=== PATIENT | female | born 1945 | race Caucasian/White ===

== ENCOUNTER 2016-05-13 05:38 | Emergency (ER) | payer MEDICARE ==
[~2016-05-13] VITALS: Ht 167.6 cm; Wt 78.0 kg
[2016-05-13 05:39] VITALS: BP 177/81; PULSE 102; RESP 16; TEMP 98.5; O2SAT 96
[2016-05-13 05:51] VITALS: BP 140/82; PULSE 96; RESP 20; TEMP 98; O2SAT 96
[2016-05-13] MEDS ORDERED: LANS30CA PO (05:54)
[2016-05-13] MEDS ORDERED: SIMV20TA PO (05:54)
[2016-05-13] MEDS ORDERED: ASPI1TAB69 PO (05:54)
[2016-05-13] MEDS ORDERED: LISI-515 PO (05:54)
[2016-05-13] MEDS ORDERED: METO25TA3 PO (05:54)
[2016-05-13] MEDS ORDERED: SODIUM CHLOR 0.9% 1000 ML INJ 1,000 ML IV SCH (06:38)
--- NOTE | 2016-05-13 06:42 | PD ---
HPI Chief Complaint: Abdominal Pain Time Seen by Provider: 06:38 Travel History International Travel<30 days: No Contact w/Intl Traveler<30days: No Traveled to known affect area: No History of Present Illness HPI 71 year-old female presents to the emergency department by private transportation for complaint of lower abdominal pain for a day and a half in duration. Patient's had associated chills nausea and decreased urine output and poor bowel movements. Patient has had mild anorexia. Patient has had partial hysterectomy in the past but no other surgeries has history of hypertension dyslipidemia and reflux esophagitis. Patient denies respiratory illness chest pain or shortness of breath. Patient states she feels the urge to have a bowel movement and urinate. This feels unsuccessful with either. No prior history of colitis diverticulitis or kidney stones. [facility] Past Medical History Narrative Medical Hypertension dyslipidemia reflux esophagitis partial hysterectomy nursing notes reviewed Diminished Hearing: No Hypertension: Yes Immunizations Current: Yes Tetanus Vaccination: Unknown Influenza Vaccination: No ?: Not Past Surgical History Gynecologic Surgery: Yes Hysterectomy: Yes Social History Alcohol Use: No Tobacco Use: No Substance Use: No Allergies-Medications (Allergen,Severity, Reaction): Coded Allergies: No Known Allergies (Unverified , 05/13/16) Reported Meds & Prescriptions Reported Meds & Active Scripts Active Reported Lansoprazole 30 Mg Capdr 30 Mg PO DAILY Metoprolol Tartrate 25 Mg Tab 25 Mg PO BID Lisinopril 20 Mg Tab 20 Mg PO DAILY Simvastatin 20 Mg Tab 20 Mg PO DAILY Aspirin 81 Mg Tabdr 81 Mg PO DAILY Review of Systems Except as stated in HPI: all other systems reviewed are Neg General / Constitutional: Positive: Chills, No: Fever HENT: No: Congestion Cardiovascular: No: Chest Pain or Discomfort Respiratory: No: Shortness of Breath Gastrointestinal: Positive: Nausea, Abdominal Pain, Constipation, No: Vomiting , Diarrhea Genitourinary: Positive: Urgency, Dysuria, No: Flank Pain Musculoskeletal: No: Myalgias, Arthralgias Skin: No Rash Neurologic: No: Weakness Psychiatric: No: Anxiety Hematologic/Lymphatic: No: Lymph Node Enlargement Physical Exam Narrative GENERAL: Well-developed well-nourished female in no acute distress no respiratory distress SKIN: Warm and dry. HEAD: Normocephalic. EYES: No scleral icterus. No injection or drainage. NECK: Supple, trachea midline. No JVD or lymphadenopathy. CARDIOVASCULAR: Regular rate and rhythm without murmurs, gallops, or rubs. RESPIRATORY: Breath sounds equal bilaterally. No accessory muscle use. GASTROINTESTINAL: Abdomen soft, mildly diffusely tender bilateral lower quadrant without guarding or rebound or palpable pulsatile mass, nondistended. MUSCULOSKELETAL: No cyanosis, or edema. BACK: Nontender without obvious deformity. No CVA tenderness. Data Data Last Documented VS Vital Signs Date Time Temp Pulse Resp B/P Pulse Ox O2 Delivery O2 Flow Rate FiO2 05/13/16 05:51 98.0 96 20 140/82 96 05/13/16 05:39 Room Air MDM Medical Decision Making Medical Screen Exam Complete: Yes Emergency Medical Condition: Yes Medical Record Reviewed: Yes Differential Diagnosis Abdominal pain diverticulitis colitis appendicitis pyelonephritis ovarian mass malignancy Narrative Course IV access obtained specimens collected and sent for resulting patient administered morphine sulfate 2 mg IV Zofran 4 mg IV normal saline 125 cc/h; CT abdomen and pelvis ordered Patient's care signed over to oncoming physician at 7 AM Deena Morrow MD May 13, 2016 06:42
[2016-05-13] MEDS ORDERED: ONDANSETRON HCL 4 MG/2 ML VIAL IVP ONE (06:45)
[2016-05-13] MEDS ORDERED: MORPHINE SULFATE 4 MG/ML INJ IV PUSH ONE (06:45)
[2016-05-13] MEDS ORDERED: SODIUM CHLORIDE 0.9% FLUSH 5 ML FLUSH IVF PRN (06:45)
[2016-05-13 06:48] VITALS: RESP 20
[2016-05-13 07:08] LABS: AUTOMATED NEUTROPHIL # 9.8 TH/MM3 (1.8-7.7); BASOPHIL % 0.3 % (0.0-2.0); EOSINOPHIL # 0.1 TH/MM3 (0-0.4); EOSINOPHIL % 0.7 % (0.0-4.0); HEMATOCRIT 39.4 % (35.0-46.0); HEMO FLAGS DIFF FINAL; LYMPH % 9.1 % (9.0-44.0); LYMPHOCYTE # 1.1 TH/MM3 (1.0-4.8); MEAN CORPUSCULAR HEMOGLOBIN 29.4 PG (27.0-34.0); MEAN CORPUSCULAR HGB CONC 34.3 % (32.0-36.0); MONO % 5.5 % (0.0-8.0); NEUT % 84.4 % (16.0-70.0); PLATELET COUNT 209 TH/MM3 (150-450); RED BLOOD COUNT 4.59 MIL/MM3 (4.00-5.30); RED CELL DISTRIBUTION WIDTH 12.7 % (11.6-17.2); WHITE BLOOD COUNT 11.6 TH/MM3 (4.0-11.0)
[2016-05-13 07:49] LABS: ALKALINE PHOSPHATASE 89 U/L (45-117); TOTAL BILIRUBIN ADULT 0.7 MG/DL (0.2-1.0)
[2016-05-13 07:51] LABS: ALT (GPT) 19 U/L (10-53); ANION GAP 8 MEQ/L (5-15); AST (GOT) 13 U/L (15-37); BICARBONATE 25.2 MEQ/L (21.0-32.0); BLOOD UREA NITROGEN 10 MG/DL (7-18); CHLORIDE 106 MEQ/L (98-107); GLOMERULAR FILTRATION RATE 87 ML/MIN (>89); SODIUM (NA) 139 MEQ/L (136-145)
[2016-05-13] MEDS ORDERED: IOHEXOL 350 MG/ML 10 ML VIAL (for RAD DIAG) IV ONE (08:21)
[2016-05-13 08:35] LABS: BACTERIA, URINE RARE /hpf; BLOOD, URINE NEG (NEG); COMMENT (UR) CULT NOT INDICATED; CULTURE IF INDICATED CULT NOT INDICATED; GLUCOSE,URINE NEG (NEG); KETONE, URINE NEG (NEG); MUCUS URINE FEW /lpf (OCC); NITRITE,URINE NEG (NEG); PH, URINE 5.5 (5.0-8.5); SQUAMOUS EPITHELIAL CELL URINE <1 /hpf (0-5); URINE COLOR LIGHT-YELLOW (YELLW/STRAW)
--- NOTE | 2016-05-13 08:59 | RADRPT ---
EXAM DATE/TIME: 05/13/2016 08:12 [facility] COMPARISON: No previous studies available for comparison. INDICATIONS : Abdominal pain. IV CONTRAST: 81 cc Omnipaque 350 (iohexol) IV ORAL CONTRAST: No oral contrast ingested. RADIATION DOSE: 9.96 CTDIvol (mGy) MEDICAL HISTORY : Hypertension. SURGICAL HISTORY : Hysterectomy. ENCOUNTER: Initial ACUITY: 4 - 6 days PAIN SCALE: 5/10 LOCATION: Diffuse abdomen TECHNIQUE: Volumetric scanning of the abdomen and pelvis was performed. Using automated exposure control and ad justment of the mA and/or kV according to patient size, radiation dose was kept as low as reasonably achievable to obtain optimal diagnostic quality images. FINDINGS: CT abdomen and pelvis with contrast demonstrates some bowel wall thickening near the rectosigmoid junction. There is some adjacent inflammation and thickening of the peritoneum . Differential includes either diverticulitis or colitis. Malignancy is less likely. There is exte nsive adjacent diverticulosis. The area of wall thickening along the rectosigmoid junction extends f or at least 4.7 cm in length. The liver, spleen, adrenal glands, pancreas and kidneys are unremarkable except for a few benign debra l cysts. There is atherosclerotic disease without aneurysm. The appendix is normal. Both ureters are nondilated. CONCLUSION: Focal area of wall thickening at the rectosigmoid junction extending for 4.7 cm in length. There is adjacent inflammation and thickening of the peritoneal lining. Differential includes colitis versus diverticulitis. Malignancy less likely but the wall is diffusely thickened. At some point, the jacey ent should undergo a colon cancer screening exam. Solid organs are unremarkable. Robert Lacey MD on May 13, 2016 at 8:33 Board Certified Radiologist. This report was verified electronically.
[2016-05-13] MEDS ORDERED: CIPR-9 PO (09:13)
[2016-05-13] MEDS ORDERED: METR-1 PO (09:13)
[2016-05-13] MEDS ORDERED: HYDR-3533 PO (09:13)
--- NOTE | 2016-05-13 09:13 | PD ---
Data Data Last Documented VS Vital Signs Date Time Temp Pulse Resp B/P Pulse Ox O2 Delivery O2 Flow Rate FiO2 05/13/16 06:48 20 05/13/16 05:51 98.0 96 140/82 96 05/13/16 05:39 Room Air Orders Complete Blood Count With Diff (05/13/16 06:38) Comprehensive Metabolic Panel (05/13/16 06:38) Lipase (05/13/16 06:38) Urinalysis - C+S If Indicated (05/13/16 06:38) Ct Abd/Pel W Iv Contrast(Rout) (05/13/16 06:38) Iv Access Insert/Monitor (05/13/16 06:38) Ecg Monitoring (05/13/16 06:38) Oximetry (05/13/16 06:38) Morphine Inj (Morphine Inj) (05/13/16 06:45) Ondansetron Inj (Zofran Inj) (05/13/16 06:45) Sodium Chlor 0.9% 1000 Ml Inj (Ns 1000 M (05/13/16 06:38) Sodium Chloride 0.9% Flush (Ns Flush) (05/13/16 06:45) Iohexol 350 Inj (Omnipaque 350 Inj) (05/13/16 08:21) Labs Laboratory Tests Test 05/13/16 05/13/16 06:45 07:45 White Blood Count 11.6 TH/MM3 Red Blood Count 4.59 MIL/MM3 Hemoglobin 13.5 GM/DL Hematocrit 39.4 % Mean Corpuscular Volume 86.0 FL Mean Corpuscular Hemoglobin 29.4 PG Mean Corpuscular Hemoglobin 34.3 % Concent Red Cell Distribution Width 12.7 % Platelet Count 209 TH/MM3 Mean Platelet Volume 8.7 FL Neutrophils (%) (Auto) 84.4 % Lymphocytes (%) (Auto) 9.1 % Monocytes (%) (Auto) 5.5 % Eosinophils (%) (Auto) 0.7 % Basophils (%) (Auto) 0.3 % Neutrophils # (Auto) 9.8 TH/MM3 Lymphocytes # (Auto) 1.1 TH/MM3 Monocytes # (Auto) 0.6 TH/MM3 Eosinophils # (Auto) 0.1 TH/MM3 Basophils # (Auto) 0.0 TH/MM3 CBC Comment DIFF FINAL Differential Comment Sodium Level 139 MEQ/L Potassium Level 4.0 MEQ/L Chloride Level 106 MEQ/L Carbon Dioxide Level 25.2 MEQ/L Anion Gap 8 MEQ/L Blood Urea Nitrogen 10 MG/DL Creatinine 0.67 MG/DL Estimat Glomerular Filtration 87 ML/MIN Rate Random Glucose 123 MG/DL Calcium Level 9.8 MG/DL Total Bilirubin 0.7 MG/DL Aspartate Amino Transf 13 U/L (AST/SGOT) Alanine Aminotransferase 19 U/L (ALT/SGPT) Alkaline Phosphatase 89 U/L Total Protein 6.9 GM/DL Albumin 3.7 GM/DL Lipase 117 U/L Urine Color LIGHT-YELLOW Urine Turbidity CLEAR Urine pH 5.5 Urine Specific [place] 1.005 Urine Protein NEG mg/dL Urine Glucose (UA) NEG mg/dL Urine Ketones NEG mg/dL Urine Occult Blood NEG Urine Nitrite NEG Urine Bilirubin NEG Urine Urobilinogen LESS THAN 2.0 MG/DL Urine Leukocyte Esterase MOD Urine RBC 1 /hpf Urine WBC 1 /hpf Urine Squamous Epithelial <1 /hpf Cells Urine Bacteria RARE /hpf Urine Mucus FEW /lpf Microscopic Urinalysis Comment CULT NOT INDICATED [facility] Supervised Visit with [facility]IL[facility]: No Narrative Course The patient was initially evaluated by the previous provider and signed out to me at the beginning of my shift pending labs, CT abdomen pelvis, and disposition. See her note for further details. Receive this is a 71-year-old female who has been having lower abdominal pain for the last 1-2 days. History of hysterectomy. She was given morphine by the previous provider with significant improvement in pain. He states that she has not had a bowel movement in about 45 days. Initial vital signs show heart rate of 102, blood pressure 177/81, pulse ox 96% on room air, oral temp of 98.5F. Heart rate improved after a liter of IV fluids to the 90s. On my assessment the patient is resting comfortably. Her abdominal exam shows mild superpubic tenderness. No peritoneal signs. CBC is remarkable for WBC 11.6 with 84% neutrophils. CMP is unremarkable. UA shows rare bacteria, not suggestive of UTI. CT abdomen pelvis: CONCLUSION: Focal area of wall thickening at the rectosigmoid junction extending for 4.7 cm in length. There is adjacent inflammation and thickening of the peritoneal lining. Differential includes colitis versus diverticulitis. Malignancy less likely but the wall is diffusely thickened. At some point, the patient should undergo a colon cancer screening exam. Solid organs are unremarkable. The patient was made aware of all findings and was provided a copy of her CT abdomen pelvis report. She reports that she had a colonoscopy about 5 years ago and believes it was completely normal. She is stable for discharge home with oral antibiotics and follow-up with her memory care physician as an outpatient who can arrange for a clinical reviewer follow-up. She was informed on when to return to the emergency department pitcher verbalizes understanding and agreement with plan. Diagnosis Primary Impression: Colitis Referrals: Primary Care Physician 3 days Additional Instruction: Take antibody as prescribed. Follow-up with your primary care physician this week. Return to the emergency room for worsening symptoms or any other concerns as discussed. Scripts Hydrocodone-Acetaminophen (Lortab)5-325 Mg Tab1 Tab PO Q6H PRN (PAIN) #15 TAB Ref 0 Prov:Jose Rafael Forman MD 05/13/16 Metronidazole (Flagyl)500 Mg [id number] Mg PO BID 10 Days Ref 0 Prov:Jose Rafael Forman MD 05/13/16 Ciprofloxacin (Cipro)500 Mg [id number] Mg PO BID 10 Days Ref 0 Prov:Jose Rafael Forman MD 05/13/16 Disposition: 01 DISCHARGE HOME Condition: Stable Jose Rafael Forman MD May 13, 2016 09:13
[2016-05-13] MEDS ORDERED: metroNIDAZOLE 500 MG TAB PO ONE (09:15)
[2016-05-13] MEDS ORDERED: CIPROFLOXACIN 500 MG TAB PO ONE (09:15)
[2016-05-13 10:00] VITALS: BP 136/77; TEMP 98.3
== END 2016-05-13 09:45 | disposition home or self-care (01) ==
LOC: NEPC 05:38
DX: K52.9 Noninfective gastroenteritis and colitis, unspecified (principal); I10 Essential (primary) hypertension
CPT/HCPCS: 74177; 80053; 81001; 83690; 85025; 96374; 96375; 99284; J2270; J2405; J7030; Q9967

== ENCOUNTER 2017-01-22 02:39 | Inpatient (IN) | payer MEDICARE ==
[~2017-01-22] VITALS: Ht 154.9 cm; Wt 65.6 kg
[2017-01-22] VITALS (7 sets, daily range): BP systolic 123–180; BP diastolic 70–98; PULSE 57–81; RESP 16–20; TEMP 95.6–98.6; O2SAT 93–97
[~2017-01-22 02:39] MED LIST: ASPI1TAB69 PO; CIPR-9 PO; HYDR-3533 PO; LANS30CA PO; LISI-515 PO; METO25TA3 PO; METR-1 PO; SIMV20TA PO
[2017-01-22] MEDS ORDERED: PANTOPRAZOLE INJ 80 MG in SODIUM CHLORIDE 0.9% INJ 35 ML IV ONE (03:21)
[2017-01-22] MEDS ORDERED: ONDANSETRON HCL 4 MG/2 ML VIAL IVP ONE (03:30)
[2017-01-22] MEDS ORDERED: MORPHINE SULFATE 4 MG/ML INJ IV PUSH ONE (03:30)
--- NOTE | 2017-01-22 03:48 | PD ---
HPI Chief Complaint: Abdominal Pain Time Seen by Provider: 03:10 Travel History International Travel<30 days: No Contact w/Intl Traveler<30days: No Traveled to known affect area: No History of Present Illness HPI 71yo F with PMH of diverticulitis, HTN, HLD presents to the ED with c/o abdominal pain, nausea and vomiting today. States she has abdominal pain that is sharp, constant, and across her abdomen. She had eaten buffet yesterday and took some tums. Started vomiting around 7pm last night. Started off clear and now it is dark. Last colonoscopy within 1 year and thinks it is normal. She does drink 1-2 drinks a day. Denies any fever, chest pain, sob, focal weakness or numbness. PFSH Past Medical History High Cholesterol: Yes Diminished Hearing: No GERD: Yes Hypertension: Yes Immunizations Current: Yes Past Surgical History Gynecologic Surgery: Yes Hysterectomy: Yes Social History Alcohol Use: No Tobacco Use: Yes (1/2PPD) Substance Use: No Allergies-Medications (Allergen,Severity, Reaction): Coded Allergies: No Known Allergies (Unverified , 01/22/17) Reported Meds & Prescriptions Reported Meds & Active Scripts Active Reported Lansoprazole 30 Mg Capdr 30 Mg PO DAILY Metoprolol Tartrate 25 Mg Tab 25 Mg PO BID Lisinopril 20 Mg Tab 20 Mg PO DAILY Simvastatin 20 Mg Tab 20 Mg PO DAILY Review of Systems Except as stated in HPI: all other systems reviewed are Neg Physical Exam Narrative GENERAL: 71yo F in moderate distress. SKIN: Focused skin assessment warm/dry. HEAD: Atraumatic. Normocephalic. EYES: Pupils equal and round. No scleral icterus. No injection or drainage. ENT: No nasal bleeding or discharge. Mucous membranes pink and moist. NECK: Trachea midline. No JVD. CARDIOVASCULAR: Regular rate and rhythm. No murmur appreciated. RESPIRATORY: No accessory muscle use. Clear to auscultation. Breath sounds equal bilaterally. GASTROINTESTINAL: Abdomen soft, +TTP epigastric, periumbilical ttp. No rebound tenderness or guarding. MUSCULOSKELETAL: No obvious deformities. No clubbing. No cyanosis. No edema. NEUROLOGICAL: Awake and alert. No obvious cranial nerve deficits. Motor grossly within normal limits. Normal speech. PSYCHIATRIC: Appropriate mood and affect; insight and judgment normal. Data Data Last Documented VS Vital Signs Date Time Temp Pulse Resp B/P (MAP) Pulse Ox O2 Delivery O2 Flow Rate FiO2 01/22/17 03:00 70 16 180/80 (113) 96 Nasal Cannula 01/22/17 02:43 98.6 Orders Orders Complete Blood Count With Diff (01/22/17 03:21) Comprehensive Metabolic Panel (01/22/17 03:21) Lipase (01/22/17 03:21) Prothrombin Time / Inr (Pt) (01/22/17 03:21) Act Partial Throm Time (Ptt) (01/22/17 03:21) Urinalysis - C+S If Indicated (01/22/17 03:21) Ct Abd/Pel W Iv Contrast(Rout) (01/22/17 03:21) Iv Access Insert/Monitor (01/22/17 03:21) Ecg Monitoring (01/22/17 03:21) Oximetry (01/22/17 03:21) Morphine Inj (Morphine Inj) (01/22/17 03:30) Ondansetron Inj (Zofran Inj) (01/22/17 03:30) Sodium Chloride 0.9% Flush (Ns Flush) (01/22/17 03:30) Chest, Single Ap (01/22/17 03:21) Type And Screen (01/22/17 03:21) Sodium Chloride 0.9... W/Pantoprazole In (01/22/17 03:21) Sodium Chloride 0.9... W/Pantoprazole In (01/22/17 03:21) Iohexol 350 Inj (Omnipaque 350 Inj) (01/22/17 05:23) Admit Order (Ed Use Only) (01/22/17 06:02) Consult General Surgery (01/22/17 ) NPO (01/22/17 06:04) Labs Laboratory Tests Test 01/22/17 03:37 White Blood Count 19.8 TH/MM3 Red Blood Count 5.23 MIL/MM3 Hemoglobin 15.9 GM/DL Hematocrit 45.7 % Mean Corpuscular Volume 87.3 FL Mean Corpuscular Hemoglobin 30.3 PG Mean Corpuscular Hemoglobin Concent 34.7 % Red Cell Distribution Width 12.7 % Platelet Count 318 TH/MM3 Mean Platelet Volume 8.6 FL Neutrophils (%) (Auto) 84.6 % Lymphocytes (%) (Auto) 10.0 % Monocytes (%) (Auto) 5.2 % Eosinophils (%) (Auto) 0.0 % Basophils (%) (Auto) 0.2 % Neutrophils # (Auto) 16.8 TH/MM3 Lymphocytes # (Auto) 2.0 TH/MM3 Monocytes # (Auto) 1.0 TH/MM3 Eosinophils # (Auto) 0.0 TH/MM3 Basophils # (Auto) 0.0 TH/MM3 CBC Comment DIFF FINAL Differential Comment Prothrombin Time 10.1 SEC Prothromb Time International Ratio 0.9 RATIO Activated Partial Thromboplast Time 24.3 SEC Blood Urea Nitrogen 18 MG/DL Creatinine 0.78 MG/DL Random Glucose 150 MG/DL Total Protein 8.5 GM/DL Albumin 4.8 GM/DL Calcium Level 11.6 MG/DL Alkaline Phosphatase 99 U/L Aspartate Amino Transf (AST/SGOT) 13 U/L Alanine Aminotransferase (ALT/SGPT) 25 U/L Total Bilirubin 0.5 MG/DL Sodium Level 136 MEQ/L Potassium Level 3.4 MEQ/L Chloride Level 100 MEQ/L Carbon Dioxide Level 26.7 MEQ/L Anion Gap 9 MEQ/L Estimat Glomerular Filtration Rate 73 ML/MIN Protein Corrected Calcium 10.7 MG/DL Lipase 150 U/L MDM Medical Decision Making Medical Screen Exam Complete: Yes Emergency Medical Condition: Yes Interpretation(s) EKG: NSR 71bpm. RBBB. Last Impressions Chest X-Ray 01/22/17320 Signed Impressions: Service Date/Time: January 03:46 - CONCLUSION: No acute disease. Stiven Heredia MD Abdomen/Pelvis CT 01/22/17320 Signed Impressions: Service Date/Time: January 05:05 - CONCLUSION: Small bowel obstruction with transition point in the left lower quadrant Stiven Heredia MD Laboratory Tests Test 01/22/17 03:37 White Blood Count 19.8 TH/MM3 (4.0-11.0) Red Blood Count 5.23 MIL/MM3 (4.00-5.30) Hemoglobin 15.9 GM/DL (11.6-15.3) Hematocrit 45.7 % (35.0-46.0) Mean Corpuscular Volume 87.3 FL (80.0-100.0) Mean Corpuscular Hemoglobin 30.3 PG (27.0-34.0) Mean Corpuscular Hemoglobin Concent 34.7 % (32.0-36.0) Red Cell Distribution Width 12.7 % (11.6-17.2) Platelet Count 318 TH/MM3 (150-450) Mean Platelet Volume 8.6 FL (7.0-11.0) Neutrophils (%) (Auto) 84.6 % (16.0-70.0) Lymphocytes (%) (Auto) 10.0 % (9.0-44.0) Monocytes (%) (Auto) 5.2 % (0.0-8.0) Eosinophils (%) (Auto) 0.0 % (0.0-4.0) Basophils (%) (Auto) 0.2 % (0.0-2.0) Neutrophils # (Auto) 16.8 TH/MM3 (1.8-7.7) Lymphocytes # (Auto) 2.0 TH/MM3 (1.0-4.8) Monocytes # (Auto) 1.0 TH/MM3 (0-0.9) Eosinophils # (Auto) 0.0 TH/MM3 (0-0.4) Basophils # (Auto) 0.0 TH/MM3 (0-0.2) CBC Comment DIFF FINAL Differential Comment Prothrombin Time 10.1 SEC (9.8-11.6) Prothromb Time International Ratio 0.9 RATIO Activated Partial Thromboplast Time 24.3 SEC (24.3-30.1) Blood Urea Nitrogen 18 MG/DL (7-18) Creatinine 0.78 MG/DL (0.50-1.00) Random Glucose 150 MG/DL (74-106) Total Protein 8.5 GM/DL (6.4-8.2) Albumin 4.8 GM/DL (3.4-5.0) Calcium Level 11.6 MG/DL (8.5-10.1) Alkaline Phosphatase 99 U/L (45-117) Aspartate Amino Transf (AST/SGOT) 13 U/L (15-37) Alanine Aminotransferase (ALT/SGPT) 25 U/L (10-53) Total Bilirubin 0.5 MG/DL (0.2-1.0) Sodium Level 136 MEQ/L (136-145) Potassium Level 3.4 MEQ/L (3.5-5.1) Chloride Level 100 MEQ/L (98-107) Carbon Dioxide Level 26.7 MEQ/L (21.0-32.0) Anion Gap 9 MEQ/L (5-15) Estimat Glomerular Filtration Rate 73 ML/MIN (>89) Protein Corrected Calcium 10.7 MG/DL (8.5-10.1) Lipase 150 U/L (73-393) Differential Diagnosis GI bleed vs. Edvin oden tear vs. Narrative Course 71yo F with abdominal pain and vomiting. Pt has dark vomit in the ED so I need hemaprompt and it was positive. Stated that her vomit started off clear so may be secondary to edvin oden tear. Pt given protonix for GI bleed. Pt also given morphine and zofran for pain and nausea. Labs reviewed, leukocytosis at 19.8, may be stress related or secondary to GI bleed. H/H stable at 15.9/45.7. Corrected calcium mildly elevated at 10.7, pt given NS IVF. Lipase normal. CXR showed no free air. CT a/p showed small bowel obstruction with transition point in left lower quadrant. Only abdominal surgery pt had was hysterectomy. Last time she ate/drank was over 24 hours ago. No flatus. Abdominal pain has resolved and abdomen is now soft, nontender. Discussed with Dr. Daugherty from general surgery who recommends admit to medicine and consult surgery. Discussed with Dr. Ortiz and accepted to her service. Pt has not vomited since I gave her zofran. I informed her the we have to place an NG tube if she vomits again or if general surgery requests it. Critical Care Narrative Aggregate critical care time was 40 minutes. Time to perform other separately billable procedures was not included in the critical care time. My time did not include minutes spent treating any other patients simultaneously or on activities that did not directly contribute to the patient's treatment. The services I provided to this patient were to treat and/or prevent clinically significant deterioration that could result in: cardiovascular collapse or . I provided critical care services requiring my management, as noted below: Chart data review, documentation time, medication orders and management, vital sign assessments/reviewing monitor data, ordering and reviewing lab tests, ordering and interpreting/reviewing x-rays and diagnostic studies, care of the patient and discussion of the patient with the admitting physicians. [facility] Point of Care Internal Pos. & Neg. Controls: Passed Gastric Specimen Occult Blood: Positive Diagnosis Primary Impression: Small bowel obstruction Admitting Information Admitting Physician Requests: Kaia Dasilva DO Jan 22, 2017 03:48
--- NOTE | 2017-01-22 04:01 | RADRPT ---
EXAM DATE/TIME: 01/22/2017 03:46 [facility] COMPARISON: No previous studies available for comparison. INDICATIONS : Chest discomfort, abdominal pain, vomiting for 3 days MEDICAL HISTORY : Hypertension. SURGICAL HISTORY : None. ENCOUNTER: Initial ACUITY: 3 days PAIN SCORE: 0/10 LOCATION: Bilateral chest FINDINGS: A single view of the chest demonstrates the lungs to be symmetrically aerated without evidence of mas s, infiltrate or effusion. The cardiomediastinal contours are unremarkable. Osseous structures are intact. CONCLUSION: No acute disease. Stiven Heredia MD on January 22, 2017 at 4:00 Board Certified Radiologist. This report was verified electronically.
[2017-01-22 04:07] LABS: AUTOMATED NEUTROPHIL # 16.8 TH/MM3 (1.8-7.7); BASOPHIL % 0.2 % (0.0-2.0); HEMATOCRIT 45.7 % (35.0-46.0); HEMO FLAGS DIFF FINAL; MEAN CELL VOLUME 87.3 FL (80.0-100.0); MEAN CORPUSCULAR HEMOGLOBIN 30.3 PG (27.0-34.0); MEAN CORPUSCULAR HGB CONC 34.7 % (32.0-36.0); MONO % 5.2 % (0.0-8.0); NEUT % 84.6 % (16.0-70.0); PLATELET COUNT 318 TH/MM3 (150-450); RED BLOOD COUNT 5.23 MIL/MM3 (4.00-5.30); RED CELL DISTRIBUTION WIDTH 12.7 % (11.6-17.2); WHITE BLOOD COUNT 19.8 TH/MM3 (4.0-11.0)
[2017-01-22 04:15] LABS: APTT (PATIENT) 24.3 SEC (24.3-30.1); INTERNATIONAL NORMALIZED RATIO 0.9 RATIO; PROTHROMBIN TIME - PATIENT 10.1 SEC (9.8-11.6)
[2017-01-22 04:26] LABS: BICARBONATE 26.7 MEQ/L (21.0-32.0); CALCIUM-PROTEIN CORRECTED 10.7 MG/DL (8.5-10.1); POTASSIUM 3.4 MEQ/L (3.5-5.1); TOTAL BILIRUBIN ADULT 0.5 MG/DL (0.2-1.0)
[2017-01-22] MEDS: PANTOPRAZOLE INJ 80 MG in SODIUM CHLORIDE 0.9% INJ 100 ML IV SCH ×3 (04:57→17:20)
[2017-01-22] MEDS ORDERED: IOHEXOL 350 MG/ML 10 ML VIAL (for RAD DIAG) IVCONTRAST ONE (05:23)
--- NOTE | 2017-01-22 05:34 | RADRPT ---
EXAM DATE/TIME: 01/22/2017 05:05 [facility] COMPARISON: CT ABDOMEN & PELVIS W CONTRAST, May 13, 2016, 8:12. CHEST SINGLE AP, January 22, 2017, 3:46. INDICATIONS : Abdominal pain with nausea and vomiting. IV CONTRAST: 90 cc Omnipaque 350 (iohexol) IV ORAL CONTRAST: No oral contrast ingested. RADIATION DOSE: 8.13 CTDIvol (mGy) MEDICAL HISTORY : Hypertension. Gastroesophageal reflux disease. SURGICAL HISTORY : Hysterectomy. ENCOUNTER: Initial ACUITY: 1 day PAIN SCALE: 7/10 LOCATION: abdomen TECHNIQUE: Volumetric scanning of the abdomen and pelvis was performed. Using automated exposure control and ad justment of the mA and/or kV according to patient size, radiation dose was kept as low as reasonably achievable to obtain optimal diagnostic quality images. DICOM format image data is available electro nically for review and comparison. FINDINGS: LOWER LUNGS: The visualized lower lungs are clear. LIVER: Homogeneous density without lesion. There is no dilation of the biliary tree. No calcified gallston es. SPLEEN: Normal size without lesion. PANCREAS: Within normal limits. KIDNEYS: Cyst arising in the medial midpole cortex of the left kidney. No suspicious mass, stone or hydronephr osis. ADRENAL GLANDS: Within normal limits. VASCULAR: There is no aortic aneurysm. BOWEL/MESENTERY: There is prominent dilatation of the stomach and proximal small bowel up to a transition point in the left lower quadrant. The ilial bowel loops are nondilated. The colon is decompressed. There are scat tered diverticula identified. No definite focal mass or inflammatory changes. ABDOMINAL WALL: Within normal limits. RETROPERITONEUM: There is no lymphadenopathy. BLADDER: No wall thickening or mass. REPRODUCTIVE: Uterus surgically absent. No evidence of pelvic mass or free fluid. INGUINAL: There is no lymphadenopathy or hernia. MUSCULOSKELETAL: Severe degenerative changes, particularly in the right hip CONCLUSION: Small bowel obstruction with transition point in the left lower quadrant Stiven Heredia MD on January 22, 2017 at 5:28 Board Certified Radiologist. This report was verified electronically.
[2017-01-22] MEDS ORDERED: SODIUM CHLOR 0.9% 1000 ML INJ 1,000 ML IV ONE (06:15)
[2017-01-22] MEDS ORDERED: ONDANSETRON HCL 4 MG/2 ML VIAL IV PUSH ONE (07:00)
--- NOTE | 2017-01-22 10:55 | PD.CONS ---
cc: Antonio Daugherty MD [facility] Service General Surgery Consult Requested By Dr. Constantino Reason for Consult Small bowel obstruction Primary Care Physician Vamsi Mcudffie MD History of Present Illness This is a 71-year-old female with a past medical history of diverticulitis, hypertension, hypercholesterolemia. The patient went out to dinner on Thursday evening on a buffet restaurant. All day on Thursday, the patient had not felt well with just minimal abdominal pain. She took a few Tums and had some relief of the abdominal pain. The patient had sharp abdominal pain that began around 7 PM last night with associated nausea and vomiting. The patient had sips of caffeine free Pepsi and was able to tolerate. The patient states when the emesis started it was clear and turned to a darker color. The patient has had a colonoscopy within the last year which was reported to be normal. The patient 's last bowel movement was Thursday morning which was normal. The patient has had months of right hip and back pain and was seen at an orthopedic surgeon this week. The patient received a cortisone shot in her right hip and was concerned that the injection may be related to her abdominal pain. She called the orthopedic surgeon and he does not think that the cortisone shot has anything to do with the acute abdominal pain. A CT abdomen and pelvis was obtained which shows a small bowel obstruction with a transition point in the left lower quadrant. A General Surgery consultation has been requested for evaluation of small bowel obstruction. Review of Systems Constitutional: COMPLAINS OF: Fatigue, Change in appetite Endocrine: DENIES: Polydipsia, Polyuria, Polyphagia Eyes: DENIES: Eye inflammation Ears, nose, mouth, throat: DENIES: Hearing loss Respiratory: DENIES: Cough Cardiovascular: DENIES: Chest pain Gastrointestinal: COMPLAINS OF: Abdominal pain, Nausea, Vomiting Genitourinary: DENIES: Urinary frequency Musculoskeletal: COMPLAINS OF: Joint pain, Back pain, DENIES: Stiffness, Joint Swelling Integumentary: DENIES: Abnormal pigmentation Hematologic/lymphatic: DENIES: Bruising Immunologic/allergic: DENIES: Eczema Neurologic: DENIES: Headache, Localized weakness, Paresthesias Psychiatric: DENIES: Mood changes, Depression, Hallucinations Past Family Social History Past Medical History Diverticulitis Hypertension Hypercholesterolemia Past Surgical History Laparoscopic hysterectomy Tonsillectomy Reported Medications Lansoprazole Metoprolol Lisinopril Simvastatin Aspirin Allergies: Coded Allergies: No Known Allergies (Unverified , 01/22/17) Active Ordered Medications Current Medications Medications (Trade) Dose Ordered Sig/Jinny Route Start Time Stop Time Status Last Admin (NS Flush) 2 ml UNSCH PRN IV FLUSH 01/22/17 03:30 Pantoprazole Sodium 80 mg/ Sodium Chloride 100 ml @ 10 mls/hr Q10H IV 01/22/17 03:21 01/22/17 04:57 Family History Brother with cancer of unknown origin; within 3 months of diagnosis No known family history of esophagus, stomach or rectal cancer. Social History Positive tobacco use---1/2 ppd Positive EtOH use-1/2 cocktails daily Denies illicit drug use Physical Exam Vital Signs Vital Signs Date Time Temp Pulse Resp B/P (MAP) Pulse Ox O2 Delivery O2 Flow Rate FiO2 01/22/17 10:08 57 20 138/70 (92) 96 Room Air 01/22/17 06:51 97 01/22/17 06:49 70 16 152/82 (105) 97 Room Air 01/22/17 03:00 70 16 180/80 (113) 96 Nasal Cannula 01/22/17 02:43 98.6 81 18 172/98 (122) 96 Room Air Physical Exam GENERAL: 71 year old female resting in ED bed in no acute distress. SKIN: Warm and dry. HEAD: Atraumatic. Normocephalic. EYES: Pupils equal and round. No scleral icterus. No injection or drainage. ENT: No nasal bleeding or discharge. Mucous membranes pink and moist. NECK: Trachea midline. CARDIOVASCULAR: Regular rate and rhythm. RESPIRATORY: No accessory muscle use. Clear to auscultation. Breath sounds equal bilaterally. GASTROINTESTINAL: Abdomen soft, mildly distended. Tender throughout with palpation; LEFT more than RIGHT; well healed laparoscope scar at umbilicus. MUSCULOSKELETAL: Extremities without clubbing, cyanosis, or edema. No obvious deformities. NEUROLOGICAL: Awake and alert. No obvious cranial nerve deficits. Motor grossly within normal limits. Five out of 5 muscle strength in the arms and legs. Normal speech. PSYCHIATRIC: Appropriate mood and affect; insight and judgment normal. Laboratory Laboratory Tests Test 01/22/17 03:37 White Blood Count 19.8 Red Blood Count 5.23 Hemoglobin 15.9 Hematocrit 45.7 Mean Corpuscular Volume 87.3 Mean Corpuscular Hemoglobin 30.3 Mean Corpuscular Hemoglobin Concent 34.7 Red Cell Distribution Width 12.7 Platelet Count 318 Mean Platelet Volume 8.6 Neutrophils (%) (Auto) 84.6 Lymphocytes (%) (Auto) 10.0 Monocytes (%) (Auto) 5.2 Eosinophils (%) (Auto) 0.0 Basophils (%) (Auto) 0.2 Neutrophils # (Auto) 16.8 Lymphocytes # (Auto) 2.0 Monocytes # (Auto) 1.0 Eosinophils # (Auto) 0.0 Basophils # (Auto) 0.0 CBC Comment DIFF FINAL Differential Comment Prothrombin Time 10.1 Prothromb Time International Ratio 0.9 Activated Partial Thromboplast Time 24.3 Blood Urea Nitrogen 18 Creatinine 0.78 Random Glucose 150 Total Protein 8.5 Albumin 4.8 Calcium Level 11.6 Alkaline Phosphatase 99 Aspartate Amino Transf (AST/SGOT) 13 Alanine Aminotransferase (ALT/SGPT) 25 Total Bilirubin 0.5 Sodium Level 136 Potassium Level 3.4 Chloride Level 100 Carbon Dioxide Level 26.7 Anion Gap 9 Estimat Glomerular Filtration Rate 73 Protein Corrected Calcium 10.7 Lipase 150 Result Diagram: 01/22/1733601/22/17336 Imaging Last 48 hours Impressions Chest X-Ray 01/22/17320 Signed Impressions: Service Date/Time: January 03:46 - CONCLUSION: No acute disease. Stiven Heredia MD Abdomen/Pelvis CT 01/22/17320 Signed Impressions: Service Date/Time: January 05:05 - CONCLUSION: Small bowel obstruction with transition point in the left lower quadrant Stiven Heredia MD Assessment and Plan Assessment and Plan 71 year old female with SBO -Recommend NGT to [facility] if nausea/vomiting occur -NPO -OR this afternoon for diagnostic laparoscopy possible exploratory laparotomy with Dr. Thomas -Obtain consents -Continue pain medications when necessary -Continue Zofran when necessary -IVF -Discussed with patient's daughter Sidra who is a Physician ([phone]) -Thank you for this consult; We will continue to follow I CERTIFY AND ATTEST THAT I PERSONALLY EXAMINED THIS PATIENT IN THEIR ROOM. MS BLANCHARD DOCUMENTED OUR VISIT I SPOKE WITH THE PATIENT AND HER DAUGHTER AND HAVE RECOMMENDED A LAPAROSCOPY FOR PROBABLE SBO SECONDARY TO ADHESIONS. I AM UNAVAILABLE TO DO HER SURGERY BUT DR THOMAS AGREED TO TAKE TO THE OR IMMEDIATELY. PATIENT AWARE AND AGREES. Discussed Condition With Dr. Dat Thomas Mrs. Velásquez+ daughter JoshMayamac JEFFERSON Jan 22, 2017 10:55 Antonio Daugherty MD Jan 26, 2017 12:35
--- NOTE | 2017-01-22 11:50 | HHI.HP ---
[facility] Service [facility] Primary Care Physician Vamsi Mcduffie MD Admission Diagnosis Small bowel obstruction Diagnoses: Chief Complaint: abdominal pain and vomiting Travel History International Travel<30 Days: No Contact w/Intl Traveler <30 Da: No Traveled to Known Affected Are: No History of Present Illness This is a 71-year-old female past medical history hypertension, lipidemia, GERD , history diverticulosis, history of hysterectomy who presented with abdominal pain and emesis. Patient stated that around 6 PM she had abdominal pain that occurred after food intake that worsened over the night. At that time she felt nauseated and then developed emesis at 5 AM. She stated that emesis was clear initially then was dark almost black. Patient states she was to the hospital because of the symptoms. In the emergency department hemaprompt was positive for blood. Denied any fevers/ chills. Denies any constipation or diarrhea. All other review of systems reviewed and negative. Past Family Social History Past Medical History Hypertension Hyperlipidemia GERD Diverticulosis Past Surgical History Hysterectomy Reported Medications Lansoprazole 30 Mg Capdr 30 Mg PO DAILY Metoprolol Tartrate 25 Mg Tab 25 Mg PO BID Lisinopril 20 Mg Tab 20 Mg PO DAILY Simvastatin 20 Mg Tab 20 Mg PO DAILY Allergies: Coded Allergies: No Known Allergies (Unverified , 01/22/17) Active Ordered Medications Current Medications Morphine Sulfate (Morphine Inj) 4 mg ONCE ONCE IV PUSH Last administered on 03:48; Start 01/22/17 at 03:30; Stop 01/22/17 at 03:31; Status DC Ondansetron HCl (Zofran Inj) 4 mg ONCE ONCE IVP Last administered on 03:50; Start 01/22/17 at 03:30; Stop 01/22/17 at 03:31; Status DC Sodium Chloride (NS Flush) 2 ml UNSCH PRN IV FLUSH FLUSH AFTER USING IV ACCESS ; Start 01/22/17 at 03:30 Pantoprazole Sodium 80 mg/ Sodium Chloride 35 ml @ 420 mls/hr Q5M ONCE IV Last administered on 01/22/17 04:56; Start 01/22/17 at 03:21; Stop 01/22/17 at 03:25; Status DC Pantoprazole Sodium 80 mg/ Sodium Chloride 100 ml @ 10 mls/hr Q10H IV Last administered on 01/22/17 04:57; Start 01/22/17 at 03:21 Iohexol (Omnipaque 350 Inj) 90 ml STK-MED ONCE IVCONTRAST Last administered on 01/22/17 05:23; Start 01/22/17 at 05:23; Stop 01/22/17 at 05:24; Status DC Sodium Chloride 1,000 ml @ 999 mls/hr BOLUS ONCE IV Last administered on 06:36; Start 01/22/17 at 06:15; Stop 01/22/17 at 07:15; Status DC Ondansetron HCl (Zofran Inj) 4 mg ONCE ONCE IV PUSH Last administered on 01/22 06:58; Start 01/22/17 at 07:00; Stop 01/22/17 at 07:01; Status DC Ondansetron HCl (Zofran Inj) 4 mg Q6HR PRN IV PUSH NAUSEA OR VOMITING Last administered on 01/22/17 13:01; Start 01/22/17 at 12:30 Morphine Sulfate (Morphine Inj) 4 mg Q3H PRN IV PUSH pain 1-10 Last administered on 01/22/17 13:25; Start 01/22/17 at 12:30 Bupivacaine HCl/ Epinephrine Bitart (Sensorcaine-Epi 0.5% 50 ml Inj) 50 ml STK- MED ONCE .ROUTE ; Start 01/22/17 at 13:43; Stop 01/22/17 at 13:44; Status DC Bupivacaine HCl/ Epinephrine Bitart (Sensorcaine-Epinephrine 0.25% Inj) 50 ml STK-MED ONCE .ROUTE Last administered on 01/22/17 15:30; Start 01/22/17 at 13:43; Stop 01/22/17 at 13:44; Status DC Famotidine (Pepcid Inj) 20 mg STK-MED ONCE .ROUTE ; Start 01/22/17 at 14:16; Stop 01/22/17 at 14:17; Status DC Cefazolin Sodium (Ancef Inj) 1,000 mg STK-MED ONCE .ROUTE Last administered on 01/22/17t 14:35; Start 01/22/17 at 14:25; Stop 01/22/17 at 14:26; Status DC Acetaminophen 100 ml @ As Directed STK-MED ONCE IV ; Start 01/22/17 at 14:35; Stop 01/22/17 at 14:36; Status DC Lactated Ringer's 1,000 ml @ 30 mls/hr Q24H PRN IV SEE LABEL COMMENTS; Start 01/22/17 at 15:00; Stop 01/25/17 at 14:59 Sodium Chloride 500 ml @ 30 mls/hr [id number] PRN IV SEE LABEL COMMENTS; Start at 15:00; Stop 01/25/17 at 14:59 Metoprolol Tartrate (Lopressor) 25 mg MAMMALOGIST PRN PO SEE LABEL COMMENTS; Start 01/22/17 at 15:00; Stop 01/25/17 at 14:59 Povidone Iodine (Betadine 5% Antisepsis Kit) 1 applic MAMMALOGIST PRN EACH NARE SEE LABEL COMMENTS; Start 01/22/17 at 15:00; Stop 01/25/17 at 14:59 Chlorhexidine Gluconate (Chlorhexidine 2% Cloth) 3 pack MAMMALOGIST PRN TOPICAL SEE LABEL COMMENTS; Start 01/22/17 at 15:00; Stop 01/25/17 at 14:59 Insulin Human Regular (NovoLIN R INJ) See Protocol Table ... MAMMALOGIST PRN SQ SEE PROTOCOL TABLE; Start 01/22/17 at 15:00; Stop 01/25/17 at 14:59 Potassium Chloride/Dextrose/ Sod Cl 1,000 ml @ 125 mls/hr Q8H IV ; Start 01/22 at 15:43 Miscellaneous Information (Post-op Orders (for Pharmacy)) STAT ONCE XX ; Start 01/22/17 at 15:45; Stop 01/22/17 at 15:47; Status DC Acetaminophen 100 ml @ 400 mls/hr Q6H IV ; Start 01/22/17 at 16:00; Stop at 10:14 Morphine Sulfate (*morphine INJ PERIprocedure ONLY) 8 mg STK-MED ONCE .ROUTE ; Start 01/22/17 at 16:14; Stop 01/22/17 at 16:15; Status DC Family History Brother history of metastatic lung cancer. Social History Drinks a glass whiskey every day. Smokes half a pack per day for 50 years. Physical Exam Vital Signs Vital Signs Date Time Temp Pulse Resp B/P (MAP) Pulse Ox O2 Delivery O2 Flow Rate FiO2 01/22/17 11:30 01/22/17 10:08 57 20 138/70 (92) 96 Room Air 01/22/17 06:51 97 01/22/17 06:49 70 16 152/82 (105) 97 Room Air 01/22/17 03:00 70 16 180/80 (113) 96 Nasal Cannula 01/22/17 02:43 98.6 81 18 172/98 (122) 96 Room Air Physical Exam GENERAL: This is a well-nourished, well-developed patient, in no apparent distress. SKIN: No rashes, ecchymoses or lesions. Cool and dry. HEAD: Atraumatic. Normocephalic. No temporal or scalp tenderness. EYES: Pupils equal round and reactive. Extraocular motions intact. No scleral icterus. No injection or drainage. ENT: Nose without bleeding, purulent drainage or septal hematoma. Throat without erythema, tonsillar hypertrophy or exudate. Uvula midline. Airway patent. NECK: Trachea midline. No JVD or lymphadenopathy. Supple, nontender, no meningeal signs. CARDIOVASCULAR: Regular rate and rhythm without murmurs, gallops, or rubs. RESPIRATORY: Clear to auscultation. Breath sounds equal bilaterally. No wheezes , rales, or rhonchi. GASTROINTESTINAL: Abdomen soft, nondistended. No hepato-splenomegaly, or palpable masses. + TTP in epigastric area. No guarding. negative peritoneal signs. MUSCULOSKELETAL: Extremities without clubbing, cyanosis, or edema. No joint tenderness, effusion, or edema noted. No calf tenderness. Negative Homans sign bilaterally. NEUROLOGICAL: Awake and alert. Cranial nerves II through XII intact. Motor and sensory grossly within normal limits. Five out of 5 muscle strength in all muscle groups. Normal speech. Laboratory Laboratory Tests Test 01/22/17 03:37 White Blood Count 19.8 Red Blood Count 5.23 Hemoglobin 15.9 Hematocrit 45.7 Mean Corpuscular Volume 87.3 Mean Corpuscular Hemoglobin 30.3 Mean Corpuscular Hemoglobin Concent 34.7 Red Cell Distribution Width 12.7 Platelet Count 318 Mean Platelet Volume 8.6 Neutrophils (%) (Auto) 84.6 Lymphocytes (%) (Auto) 10.0 Monocytes (%) (Auto) 5.2 Eosinophils (%) (Auto) 0.0 Basophils (%) (Auto) 0.2 Neutrophils # (Auto) 16.8 Lymphocytes # (Auto) 2.0 Monocytes # (Auto) 1.0 Eosinophils # (Auto) 0.0 Basophils # (Auto) 0.0 CBC Comment DIFF FINAL Differential Comment Prothrombin Time 10.1 Prothromb Time International Ratio 0.9 Activated Partial Thromboplast Time 24.3 Blood Urea Nitrogen 18 Creatinine 0.78 Random Glucose 150 Total Protein 8.5 Albumin 4.8 Calcium Level 11.6 Alkaline Phosphatase 99 Aspartate Amino Transf (AST/SGOT) 13 Alanine Aminotransferase (ALT/SGPT) 25 Total Bilirubin 0.5 Sodium Level 136 Potassium Level 3.4 Chloride Level 100 Carbon Dioxide Level 26.7 Anion Gap 9 Estimat Glomerular Filtration Rate 73 Protein Corrected Calcium 10.7 Lipase 150 Result Diagram: 01/22/17 0337 01/22/17336 Imaging Last Impressions Chest X-Ray 01/22/17320 Signed Impressions: Service Date/Time: January 03:46 - CONCLUSION: No acute disease. Stiven Heredia MD Abdomen/Pelvis CT 01/22/17320 Signed Impressions: Service Date/Time: January 05:05 - CONCLUSION: Small bowel obstruction with transition point in the left lower quadrant MD Michelle Zuñigai VTE Risk Assessment Caprini VTE Risk Assessment: Mod/High Risk (score >= 2) Caprini Risk Assessment Model Point Value = 1 Point Value = 2 Point Value = 3 Point Value = 5 Age 41-60 Minor surgery BMI > 25 kg/m2 Swollen legs Varicose veins or History of unexplained or recurrent spontaneous Oral contraceptives or hormone replacement Sepsis (< 1 month) Serious lung disease, including pneumonia (< 1 month) Abnormal pulmonary function Acute myocardial infarction Congestive heart failure (< 1 month) History of inflammatory bowel disease Medical patient at bed rest Age 61-74 Arthroscopic surgery Major open surgery (> 45 min) Laparoscopic surgery (> 45 min) Malignancy Confined to bed (> 72 hours) Immobilizing plaster cast Central venous access Age >= 75 History of VTE Family history of VTE Factor V Leiden Prothrombin [id number] Lupus anticoagulant Anticardiolipin antibodies Elevated serum homocysteine Heparin-induced thrombocytopenia Other congenital or acquired thrombophilia Stroke (< 1 month) Elective arthroplasty Hip, pelvis, or leg fracture Acute spinal cord injury (< 1 month) Prophylaxis Regimen Total Risk Factor Score Risk Level Prophylaxis Regimen 0-1 Low Early ambulation 2 Moderate Order ONE of the following: *Sequential Compression Device (SCD) *Heparin 5000 units SQ BID 3-4 Higher Order ONE of the following medications: *Heparin 5000 units SQ TID *Enoxaparin/Lovenox 40 mg SQ daily (WT < 150 kg, CrCl > 30 mL/min) *Enoxaparin/Lovenox 30 mg SQ daily (WT < 150 kg, CrCl > 10-29 mL/min) *Enoxaparin/Lovenox 30 mg SQ BID (WT < 150 kg, CrCl > 30 mL/min) AND/OR *Sequential Compression Device (SCD) 5 or more Highest Order ONE of the following medications: *Heparin 5000 units SQ TID (Preferred with Epidurals) *Enoxaparin/Lovenox 40 mg SQ daily (WT < 150 kg, CrCl > 30 mL/min) *Enoxaparin/Lovenox 30 mg SQ daily (WT < 150 kg, CrCl > 10-29 mL/min) *Enoxaparin/Lovenox 30 mg SQ BID (WT < 150 kg, CrCl > 30 mL/min) AND *Sequential Compression Device (SCD) Assessment and Plan Assessment and Plan 71 y/o F with hx of HTN, HLP, GERD, hx of hysterectomy who presented with abdominal pain Abdominal pain/emesis -CT scan suggest SBO. -reviewed labs with significant for elevated WBC. -on Protonix gtt. -GS consulted appreciate assistance with care. -Recommend NGT to [facility] if nausea/vomiting occur, NPO, OR this afternoon for diagnostic laparoscopy possible exploratory laparotomy with Dr. Thomas -continue with supportive care. ? GI bleed -maybe due to SBO. -patient on protonix gtt. -continue to monitor h/h and clinically. HTN/HLP/GERD -since patient is NPO will give PRN medication as needed. DVT prophylaxis -SCDs. hold off chemoprophylaxis for now since patient scheduled for surgery today. Discussed Condition With patient Physician Certification 2 Midnight Certification Type: Admission for Inpatient Services Order for Inpatient Services The services are ordered in accordance with Medicare regulations or non- Medicare payer requirements, as applicable. In the case of services not specified as inpatient-only, they are appropriately provided as inpatient services in accordance with the 2-midnight benchmark. Estimated LOS (days): 3 3 days is the estimated time the patient will need to remain in the hospital, assuming treatment plan goals are met and no additional complications. Post-Hospital Plan: Petrolia Sade Wong MD Jan 22, 2017 11:50
--- NOTE | 2017-01-22 12:10 | EKG ---
Date Performed: 01/22/2017 Time Performed: 02:59:41 PTAGE: 71 years EKG: Sinus rhythm WITH SINUS ARRHYTHMIA RIGHT BUNDLE BRANCH BLOCK ABNORMAL ECG NO PREVIOUS TRACING DOCTOR: Sun Kelly Interpretating Date/Time 01/22/2017 12:08:56
[2017-01-22] MEDS: ONDANSETRON HCL 4 MG/2 ML VIAL IV PUSH PRN (13:01)
[2017-01-22] MEDS: MORPHINE SULFATE 4 MG/ML INJ IV PUSH PRN ×2 (13:25→22:11)
[2017-01-22] MEDS ORDERED: BUPIVACAINE/EPINEPHRINE 0.5% 50 ML VIAL ONE (13:43)
[2017-01-22] MEDS ORDERED: BUPIVACAINE/EPINEPHRINE 0.25% 50 ML VIAL ONE (13:43)
[2017-01-22] MEDS ORDERED: FAMOTIDINE 20 MG/2 ML VIAL ONE (14:16)
[2017-01-22] MEDS ORDERED: ceFAZolin INJ 1,000 MG VIAL ONE (14:25)
[2017-01-22] MEDS ORDERED: ACETAMINOPHEN 1000 MG/100 ML 100 ML IV ONE (14:35)
[2017-01-22] MEDS ORDERED: LACTATED RINGER'S 1000 ML IV PRN (15:00)
[2017-01-22] MEDS ORDERED: SODIUM CHLORID 0.9% 500 ML IV PRN (15:00)
[2017-01-22] MEDS ORDERED: CHLORHEXIDINE GLUCONATE 2 % 1 PACK (2 CLOTHS) TOPICAL PRN (15:00)
[2017-01-22] MEDS ORDERED: INSULIN HUMAN REGULAR 1,000 UNITS/10 ML VIAL SQ PRN (15:00)
[2017-01-22] MEDS ORDERED: METOPROLOL TARTRATE 25 MG TAB PO PRN (15:00)
[2017-01-22] MEDS ORDERED: POVIDONE IODINE 5% (ANTISEPSIS KIT) 4 APPLICATIONS EACH NARE PRN (15:00)
[2017-01-22] MEDS ORDERED: Post-op Orders (for Pharmacy) MISC XX ONE (15:45)
[2017-01-22] MEDS ORDERED: DO NOT ADM ANY ANTICOAGULANT DRUGS PRN (15:57)
[2017-01-22] MEDS ORDERED: *morphine SULFATE 8 MG/ML PERIprocedure ONLY ONE (16:14)
[2017-01-22] MEDS: D5-NS + KCL 20 MEQ INJ 1,000 ML IV SCH ×2 (16:30→22:06)
[2017-01-22] MEDS: ACETAMINOPHEN 1000 MG/100 ML 100 ML IV SCH ×2 (16:30→22:13)
--- NOTE | 2017-01-22 21:05 | MP ---
cc: INDIA THOMAS DATE OF SURGERY 01/22/2017 PREOPERATIVE DIAGNOSIS Small bowel obstruction. POSTOPERATIVE DIAGNOSIS Small bowel obstruction, secondary to adhesions. Diverticulosis. Small bowel diverticulum proximal jejunum. PROCEDURE Diagnostic laparoscopy, lysis of adhesions. ANESTHESIA General. SURGEON Dr. Thomas. INDICATIONS This is a pleasant 71-year-old female who was recently admitted to the hospital. Dr. Daugherty saw her and he could not perform her surgery because of scheduling conflicts. He asked me to participate in her care. I met the patient in the holding area and discussed her surgical intervention. Per history is she had a hysterectomy in her past and she recently had a colonoscopy. PROCEDURE IN DETAIL The patient taken to the operating room, placed in the supine position after anesthesia the anesthesiologist placed an NG tube in and they immediately get about 1200 cc of fluids out of her stomach. After the stomach and small bowel was decompressed her abdomen is prepped with Betadine. She is given preoperative antibiotics. Time-out was done. We elect to make an incision just at the umbilicus. We dissect down through the deep tissue, incising the fascia, the abdomen was entered directly. A 10 mm trocar was introduced. Two of the working ports were placed, one at the pubic tubercle, one just above this in between the two previously placed ports in the midline. Because of the CT scan which showed apparent obstruction in the left lower quadrant that is the direction we facilitated dissecting. Using the harmonic scalpel we take down the omentum that is stuck to the anterior abdominal wall. An area of small bowel that is very compressed is noted and just proximal to this dilated bowel, photos are taken. Once these adhesions were freed up of the omentum we are able elevate the omentum over the stomach. We are able to follow the small bowel from the obstructed segment all the way proximally to the ligament of Treitz just about 8 cm from the ligament of Treitz. There is diverticulum of the small bowel. Running the small bowel no other abnormalities seen except for the dilated segment that we see the transition point that has been released by the adhesions. We then explore all the way down the cecum. Cecum is stuck along the anterior abdominal wall. This is taken down as well. The cecum appears to be full of stool. There is some other minor adhesions down to the left lower quadrant and these are taken down with harmonic scalpel. We then irrigate copiously. We note that the liver is smooth. The gallbladder looks completely normal. Because of the amount of distension of the stomach we elected to leave the NG tube in place. After replacing the omentum down the pelvis covering the small bowel we then removed the trocars. The 10 mm trocar was closed with a 0 Vicryl and skin is closed with 4-0 Vicryl at all three sites, Steri-Strips applied, sterile bandage applied. The patient tolerated the procedure well. No immediate postop complication. India Thomas MD JDB/EMERY /3:35 PM /8:37 PM
[2017-01-23] VITALS (7 sets, daily range): BP systolic 136–169; BP diastolic 65–83; PULSE 57–77; RESP 17–19; TEMP 97.7–97.8; O2SAT 95–98
[2017-01-23] MEDS ORDERED: PADIMATE (CHAPSTICK) 4.5 GM TUBE TOPICAL PRN
[2017-01-23] MEDS: MORPHINE SULFATE 4 MG/ML INJ IV PUSH PRN ×5 (01:49→21:05)
[2017-01-23] MEDS: ACETAMINOPHEN 1000 MG/100 ML 100 ML IV SCH ×2 (04:51→09:52)
[2017-01-23] MEDS: PANTOPRAZOLE INJ 80 MG in SODIUM CHLORIDE 0.9% INJ 100 ML IV SCH (06:41)
[2017-01-23] MEDS: D5-NS + KCL 20 MEQ INJ 1,000 ML IV SCH ×2 (06:44→15:52)
[2017-01-23 07:43] LABS: BASOPHIL % 0.1 % (0.0-2.0); EOSINOPHIL % 0.2 % (0.0-4.0); HEMATOCRIT 36.1 % (35.0-46.0); HEMO FLAGS DIFF FINAL; LYMPH % 12.6 % (9.0-44.0); LYMPHOCYTE # 1.3 TH/MM3 (1.0-4.8); MEAN CELL VOLUME 90.3 FL (80.0-100.0); MEAN CORPUSCULAR HEMOGLOBIN 30.5 PG (27.0-34.0); MEAN CORPUSCULAR HGB CONC 33.7 % (32.0-36.0); MONO % 8.9 % (0.0-8.0); NEUT % 78.2 % (16.0-70.0); PLATELET COUNT 207 TH/MM3 (150-450); RED CELL DISTRIBUTION WIDTH 12.5 % (11.6-17.2); WHITE BLOOD COUNT 10.2 TH/MM3 (4.0-11.0)
[2017-01-23 08:31] LABS: BICARBONATE 25.4 MEQ/L (21.0-32.0); POTASSIUM 4.3 MEQ/L (3.5-5.1)
--- NOTE | 2017-01-23 09:05 | HHI.PR ---
Subjective Remarks Follow-up for small bowel obstruction Patient asking if the NG tube can come out. She stated that causing her pain around her throat. She stated that she doesn't feel well but denies any nausea or vomiting. She stated pain is controlled. She remains afebrile. Objective Vitals Vital Signs Date Time Temp Pulse Resp B/P (MAP) Pulse Ox O2 Delivery O2 Flow Rate FiO2 01/23/17 07:38 97.7 66 19 156/70 (98) 95 01/23/17 04:50 97.7 77 17 169/79 (109) 95 01/23/17 00:20 97.8 67 18 164/72 (102) 96 01/22/17 20:36 96 Nasal Cannula 2.00 01/22/17 17:35 95.6 81 19 123/78 (93) 93 01/22/17 17:15 97.5 75 16 107/64 (78) 95 Nasal Cannula 2 01/22/17 17:00 76 16 104/62 (76) 95 Nasal Cannula 2 01/22/17 16:45 77 16 103/58 (73) 94 Nasal Cannula 2 01/22/17 16:30 76 15 100/60 (73) 94 Nasal Cannula 2 01/22/17 16:15 77 15 98/62 (74) 99 Nasal Cannula 3 01/22/17 16:00 78 14 97/59 (72) 98 Nasal Cannula 3 01/22/17 15:55 97.9 96 12 94/59 (71) 95 Nasal Cannula 3 01/22/17 11:30 01/22/17 10:08 57 20 138/70 (92) 96 Room Air I/O 01/22/17 01/22/17 01/22/17 01/23/17 01/23/17 01/23/17 07:00 15:00 23:00 07:00 15:00 23:00 Intake Total 1035 ml 3670 ml 2652 ml 60 ml Output Total 2150 ml 250 ml 800 ml Balance 1035 ml 1520 ml 2402 ml -740 ml Intake Oral 60 ml 60 ml IV Total 1035 ml 1310 ml 2652 ml Other 2300 ml Output Urine Total 500 ml 800 ml Gastric Drainage Total 1600 ml 250 ml Estimated Blood Loss 50 ml # Bowel Movements 0 0 Result Diagram: 01/23/17 0645 01/23/17 0645 Objective Remarks GENERAL: in NAD NG in placed with greenish/bilious output. CARDIOVASCULAR: Regular rate and rhythm without murmurs, gallops, or rubs. RESPIRATORY: Breath sounds equal bilaterally. No accessory muscle use. GASTROINTESTINAL: Abdomen soft, nondistended. + TTP midabdomen M Medications and IVs Current Medications Morphine Sulfate (Morphine Inj) 4 mg ONCE ONCE IV PUSH Last administered on 03:48; Start 01/22/17 at 03:30; Stop 01/22/17 at 03:31; Status DC Ondansetron HCl (Zofran Inj) 4 mg ONCE ONCE IVP Last administered on 03:50; Start 01/22/17 at 03:30; Stop 01/22/17 at 03:31; Status DC Sodium Chloride (NS Flush) 2 ml UNSCH PRN IV FLUSH FLUSH AFTER USING IV ACCESS ; Start 01/22/17 at 03:30 Pantoprazole Sodium 80 mg/ Sodium Chloride 35 ml @ 420 mls/hr Q5M ONCE IV Last administered on 01/22/17 04:56; Start 01/22/17 at 03:21; Stop 01/22/17 at 03:25; Status DC Pantoprazole Sodium 80 mg/ Sodium Chloride 100 ml @ 10 mls/hr Q10H IV Last administered on 01/23/17 06:41; Start 01/22/17 at 03:21 Iohexol (Omnipaque 350 Inj) 90 ml STK-MED ONCE IVCONTRAST Last administered on 01/22/17 05:23; Start 01/22/17 at 05:23; Stop 01/22/17 at 05:24; Status DC Sodium Chloride 1,000 ml @ 999 mls/hr BOLUS ONCE IV Last administered on 06:36; Start 01/22/17 at 06:15; Stop 01/22/17 at 07:15; Status DC Ondansetron HCl (Zofran Inj) 4 mg ONCE ONCE IV PUSH Last administered on 01/22 06:58; Start 01/22/17 at 07:00; Stop 01/22/17 at 07:01; Status DC Ondansetron HCl (Zofran Inj) 4 mg Q6HR PRN IV PUSH NAUSEA OR VOMITING Last administered on 01/22/17 13:01; Start 01/22/17 at 12:30 Morphine Sulfate (Morphine Inj) 4 mg Q3H PRN IV PUSH pain 1-10 Last administered on 01/23/17 04:50; Start 01/22/17 at 12:30 Bupivacaine HCl/ Epinephrine Bitart (Sensorcaine-Epi 0.5% 50 ml Inj) 50 ml STK- MED ONCE .ROUTE ; Start 01/22/17 at 13:43; Stop 01/22/17 at 13:44; Status DC Bupivacaine HCl/ Epinephrine Bitart (Sensorcaine-Epinephrine 0.25% Inj) 50 ml STK-MED ONCE .ROUTE Last administered on 01/22/17 15:30; Start 01/22/17 at 13:43; Stop 01/22/17 at 13:44; Status DC Famotidine (Pepcid Inj) 20 mg STK-MED ONCE .ROUTE ; Start 01/22/17 at 14:16; Stop 01/22/17 at 14:17; Status DC Cefazolin Sodium (Ancef Inj) 1,000 mg STK-MED ONCE .ROUTE Last administered on 01/22/17 14:35; Start 01/22/17 at 14:25; Stop 01/22/17 at 14:26; Status DC Acetaminophen 100 ml @ As Directed STK-MED ONCE IV ; Start 01/22/17 at 14:35; Stop 01/22/17 at 14:36; Status DC Lactated Ringer's 1,000 ml @ 30 mls/hr Q24H PRN IV SEE LABEL COMMENTS; Start 01/22/17 at 15:00; Stop 01/25/17 at 14:59 Sodium Chloride 500 ml @ 30 mls/hr [id number] PRN IV SEE LABEL COMMENTS; Start at 15:00; Stop 01/25/17 at 14:59 Metoprolol Tartrate (Lopressor) 25 mg HUMID SYSTEM OPERATOR PRN PO SEE LABEL COMMENTS; Start 01/22/17 at 15:00; Stop 01/25/17 at 14:59 Povidone Iodine (Betadine 5% Antisepsis Kit) 1 applic HUMID SYSTEM OPERATOR PRN EACH NARE SEE LABEL COMMENTS; Start 01/22/17 at 15:00; Stop 01/25/17 at 14:59 Chlorhexidine Gluconate (Chlorhexidine 2% Cloth) 3 pack HUMID SYSTEM OPERATOR PRN TOPICAL SEE LABEL COMMENTS; Start 01/22/17 at 15:00; Stop 01/25/17 at 14:59 Insulin Human Regular (NovoLIN R INJ) See Protocol Table ... HUMID SYSTEM OPERATOR PRN SQ SEE PROTOCOL TABLE; Start 01/22/17 at 15:00; Stop 01/25/17 at 14:59 Potassium Chloride/Dextrose/ Sod Cl 1,000 ml @ 125 mls/hr Q8H IV Last administered on 01/23/17 06:44; Start 01/22/17 at 15:43 Miscellaneous Information (Post-op Orders (for Pharmacy)) STAT ONCE XX ; Start 01/22/17 at 15:45; Stop 01/22/17 at 15:47; Status DC Acetaminophen 100 ml @ 400 mls/hr Q6H IV Last administered on 01/23/17 04:51 ; Start 01/22/17 at 16:00; Stop 01/23/17 at 10:14 Morphine Sulfate (*morphine INJ PERIprocedure ONLY) 8 mg STK-MED ONCE .ROUTE Last administered on 01/22/17 16:14; Start 01/22/17 at 16:14; Stop 01/22/17 at 16:15; Status DC Miscellaneous Information ALL NURSING DEPARTME... UNSCH PRN .XX SEE LABEL COMMENTS; Start 01/22/17 at 15:57; Stop 01/23/17 at 15:56 Padimate O (Chapstick) 1 applic UNSCH PRN TOPICAL CHAPPED LIPS Last administered on 01/23/17 01:38; Start 01/23/17 at 00:00 A/P Assessment and Plan 71 y/o F with hx of HTN, HLP, GERD, hx of hysterectomy who presented with abdominal pain Small bowel obstruction secondary to adhesions -CT scan suggest SBO. -Status post laparoscopic surgery with lysis of adhesions on 01/22/2017 -Continue with NG per general surgeon. Management per general surgeon. ? GI bleed -maybe due to SBO. -patient on protonix gtt. -There is no bloody output from the NG. -Continue to monitor H&H. HTN/HLP/GERD -since patient is NPO will give PRN medication as needed. Patient can tolerate oral intake will restart oral medication. DVT prophylaxis -SCDs. Sade Wong MD Jan 23, 2017 09:05
[2017-01-23] MEDS ORDERED: NON-FORMULARY DRUG (Lansoprazole 30 MG) PO SCH (10:30)
[2017-01-23] MEDS: METOPROLOL TARTRATE 25 MG TAB PO SCH ×2 (11:15→21:04)
[2017-01-23] MEDS: LISINOPRIL 20 MG TAB PO SCH (11:15)
[2017-01-23] MEDS: PRAVASTATIN SOD 40 MG TAB PO SCH (11:15)
--- NOTE | 2017-01-23 12:57 | HHI.PR ---
Subjective Subjective Notes DAILY PROGRESS NOTE FOR SURGICAL ATTENDING, DR. ED THOMAS Doing well Pain much better NGT irritating throat Objective Vitals/I&O Vital Signs Date Time Temp Pulse Resp B/P (MAP) Pulse Ox O2 Delivery O2 Flow Rate FiO2 01/23/17 11:29 97.8 57 18 158/71 (100) 95 01/23/17 09:22 Nasal Cannula 1.00 Labs Laboratory Tests Test 01/23/17 06:45 White Blood Count 10.2 Red Blood Count 4.00 Hemoglobin 12.2 Hematocrit 36.1 Mean Corpuscular Volume 90.3 Mean Corpuscular Hemoglobin 30.5 Mean Corpuscular Hemoglobin Concent 33.7 Red Cell Distribution Width 12.5 Platelet Count 207 Mean Platelet Volume 8.0 Neutrophils (%) (Auto) 78.2 Lymphocytes (%) (Auto) 12.6 Monocytes (%) (Auto) 8.9 Eosinophils (%) (Auto) 0.2 Basophils (%) (Auto) 0.1 Neutrophils # (Auto) 8.0 Lymphocytes # (Auto) 1.3 Monocytes # (Auto) 0.9 Eosinophils # (Auto) 0.0 Basophils # (Auto) 0.0 CBC Comment DIFF FINAL Differential Comment Blood Urea Nitrogen 8 Creatinine 0.49 Random Glucose 125 Calcium Level 9.3 Sodium Level 140 Potassium Level 4.3 Chloride Level 109 Carbon Dioxide Level 25.4 Anion Gap 6 Estimat Glomerular Filtration Rate 125 Radiology Last 48 hours Impressions Chest X-Ray 01/22/17320 Signed Impressions: Service Date/Time: January 03:46 - CONCLUSION: No acute disease. Stiven Heredia MD Abdomen/Pelvis CT 01/22/17320 Signed Impressions: Service Date/Time: , January 22, 2017 05:05 - CONCLUSION: Small bowel obstruction with transition point in the left lower quadrant Stiven Heredia MD Cardiovascular: Regular Lungs: Clear Abdomen: Other (dx lap sites c/d/i; mild brusiing at umbilcus; abdomen soft. minimally tender ) Extremities: No edema A/P Problem List: (1) Status post laparoscopic procedure ICD Codes: Z98.890 - Other specified postprocedural states Status: Acute Permanent Comment: Lysis of adhesions Last Edited By: Ed Thomas on Jan 13:59 (2) Small bowel obstruction ICD Codes: K56.609 - Unspecified intestinal obstruction, unspecified as to partial versus complete obstruction Status: Acute (3) Intra-abdominal adhesions ICD Codes: K66.0 - Peritoneal adhesions (postprocedural) (postinfection) (4) Abnormal CT of the abdomen ICD Codes: R93.5 - Abnormal findings on diagnostic imaging of other abdominal regions, including retroperitoneum (5) History of hysterectomy ICD Codes: Z90.710 - Acquired absence of both cervix and uterus Assessment and Plan 71 year old female POD1 dx lap; JIE for SBO -Clamp NGT; start clears -Restart home medications -IVF -Pain control -DC Nuñez -OOB and mobilize Attending Statement NOTE FOR SURGICAL ATTENDING, DR. ED THOMAS I agree with above assessment and plan. The exam, history, and the medical decision-making described in the above note were completed with the assistance of the mid-level provider. I reviewed and agree with the findings presented. I attest that I had a [id number] encounter with the patient on the same day, and personally performed and documented my assessment and findings in the medical record. The following services were provided during this hospital visit: Chart data review, vital sign assessments/reviewing monitor data Review of consultations notes if present. Medication orders/review and/or management Ordering and/or reviewing lab tests Ordering and/or interpreting/reviewing x-rays and/or diagnostic studies Care of the patient and discussion of the patient with the care team Documentation time To help prompt me to consider important information that might be impacting today's encounter and assessment, information from prior notes written by myself or my colleagues may have been "brought forward/copy and pasted" into today's note. Maya Moreno Jan 23, 2017 12:57 Ed Thomas MD Jan 23, 2017 13:59
[2017-01-23] MEDS ORDERED: PHENOL 1.4% SOLN 180 ML BTL OROPHARYNG PRN (14:00)
[2017-01-23] MEDS: BENZOCAINE 6 MG/MENTHOL 10 MG LOZENGE BUCCAL PRN (14:45)
[2017-01-23] MEDS: PANTOPRAZOLE SOD 40 MG DELAYED RELEASE TAB PO SCH (14:45)
[2017-01-23] MEDS: ONDANSETRON HCL 4 MG/2 ML VIAL IV PUSH PRN (23:02)
[2017-01-23] MEDS: SODIUM CHLORIDE 0.9% FLUSH 10 ML FLUSH IV FLUSH PRN (23:02)
[2017-01-24] VITALS (29 sets, daily range): BP systolic 143–223; BP diastolic 68–108; PULSE 63–135; RESP 17–20; TEMP 97.6–98.7; O2SAT 94–97
[2017-01-24] MEDS: MORPHINE SULFATE 4 MG/ML INJ IV PUSH PRN ×3 (03:28→20:00)
[2017-01-24] MEDS: D5-NS + KCL 20 MEQ INJ 1,000 ML IV SCH ×3 (03:30→12:00)
[2017-01-24] MEDS ORDERED: ENALAPRILAT 1.25 MG/ML VIAL IV PUSH ONE (04:15)
[2017-01-24] MEDS ORDERED: PROMETHAZINE HCL 12.5 MG SUPP RECTAL ONE (04:15)
[2017-01-24] MEDS ORDERED: HYDROmorphone HCL PF 1 MG/ML VIAL IV PUSH ONE (06:00)
[2017-01-24 06:46] LABS: HEMATOCRIT 41.3 % (35.0-46.0); MEAN CELL VOLUME 88.3 FL (80.0-100.0); PLATELET COUNT 219 TH/MM3 (150-450); RED BLOOD COUNT 4.67 MIL/MM3 (4.00-5.30); RED CELL DISTRIBUTION WIDTH 12.8 % (11.6-17.2); REVIEW FLAG FINAL
[2017-01-24 06:48] LABS: AUTOMATED NEUTROPHIL # 8.1 TH/MM3 (1.8-7.7); BASOPHIL % 0.3 % (0.0-2.0); EOSINOPHIL # 0.2 TH/MM3 (0-0.4); EOSINOPHIL % 1.9 % (0.0-4.0); HEMATOCRIT 40.9 % (35.0-46.0); HEMO FLAGS DIFF FINAL; LYMPH % 12.5 % (9.0-44.0); LYMPHOCYTE # 1.3 TH/MM3 (1.0-4.8); MEAN CELL VOLUME 88.4 FL (80.0-100.0); MEAN CORPUSCULAR HEMOGLOBIN 30.3 PG (27.0-34.0); MEAN CORPUSCULAR HGB CONC 34.2 % (32.0-36.0); MONO % 8.7 % (0.0-8.0); NEUT % 76.6 % (16.0-70.0); PLATELET COUNT 212 TH/MM3 (150-450); RED BLOOD COUNT 4.62 MIL/MM3 (4.00-5.30); RED CELL DISTRIBUTION WIDTH 12.3 % (11.6-17.2); WHITE BLOOD COUNT 10.6 TH/MM3 (4.0-11.0)
[2017-01-24 07:05] LABS: MAGNESIUM 2.1 MG/DL (1.5-2.5); POTASSIUM 3.8 MEQ/L (3.5-5.1)
[2017-01-24 07:12] LABS: BICARBONATE 28.2 MEQ/L (21.0-32.0); POTASSIUM 3.6 MEQ/L (3.5-5.1)
[2017-01-24] MEDS: PANTOPRAZOLE SOD 40 MG DELAYED RELEASE TAB PO SCH (09:13)
[2017-01-24] MEDS: LISINOPRIL 20 MG TAB PO SCH (09:15)
[2017-01-24] MEDS: METOPROLOL TARTRATE 25 MG TAB PO SCH ×2 (09:16→19:45)
[2017-01-24] MEDS: PRAVASTATIN SOD 40 MG TAB PO SCH (09:16)
[2017-01-24] MEDS: ONDANSETRON HCL 4 MG/2 ML VIAL IV PUSH PRN ×2 (09:16→18:07)
--- NOTE | 2017-01-24 09:24 | EKG ---
Date Performed: 01/24/2017 Time Performed: 06:10:40 PTAGE: 71 years EKG: Possible ectopic atrial rhythm Right bundle branch block Inferior infarct - age undetermine d Low QRS voltages in precordial leads Abnormal ECG Compared to prior electrocardiogram, ectopic atri al rhythm is present. PREVIOUS TRACING : 01/22/2017 02.59 DOCTOR: Rico Alberts Interpretating Date/Time 01/24/2017 09:23:51
[2017-01-24] MEDS ORDERED: cloNIDine HCL 0.1 MG TAB PO ONE (10:30)
[2017-01-24] MEDS ORDERED: cloNIDine HCL 0.1 MG TAB PO PRN (10:30)
--- NOTE | 2017-01-24 11:31 | RADRPT ---
EXAM DATE/TIME: 01/24/2017 10:58 [facility] COMPARISON: No previous studies available for comparison. INDICATIONS : Vomiting. MEDICAL HISTORY : Diverticulitis. SURGICAL HISTORY : None. ENCOUNTER: Initial ACUITY: 1 day PAIN SCORE: 6/10 LOCATION: Abdomen FINDINGS: Supine view of the abdomen was performed. The abdominal bowel gas pattern is normal. No definite ca lcifications are seen overlying the kidneys.. There are degenerative changes involving the lumbar spi ne and pelvis. There is osteoarthritis of the right hip joint. CONCLUSION: Benign abdomen. Michel Adkins MD on January 24, 2017 at 11:29 Board Certified Radiologist. This report was verified electronically.
--- NOTE | 2017-01-24 11:32 | RADRPT ---
EXAM DATE/TIME: 01/24/2017 11:06 [facility] COMPARISON: CHEST SINGLE AP, January 22, 2017, 3:46. INDICATIONS : Shortness of breath. MEDICAL HISTORY : Hypertension. SURGICAL HISTORY : None. ENCOUNTER: Initial ACUITY: 1 day PAIN SCORE: 3/10 LOCATION: chest FINDINGS: A single view of the chest demonstrates the lungs to be symmetrically aerated without evidence of mas s, infiltrate or effusion. The cardiomediastinal contours are unremarkable. Osseous structures are intact. CONCLUSION: No acute disease. No significant change has occurred. Michel Adkins MD on January 24, 2017 at 11:30 Board Certified Radiologist. This report was verified electronically.
[2017-01-24] MEDS: hydrALAZINE HCL 20 MG/ML VIAL IV PUSH PRN ×2 (12:04→18:08)
--- NOTE | 2017-01-24 12:08 | HHI.PR ---
Subjective Remarks Follow-up for small bowel obstruction Early this morning around 4 AM patient became very hypertensive. She was given a dose of Vasotec with no improvement her blood pressure. I was notified by the nurse today and saw patient at the bedside. Patient stated that she was doing well after she saw me but then when the NG tube was clamped she felt nauseous and that the tubes, now. So the nurse took the NG tube out last night. Afterwards she just started feeling worse in terms of abdominal pain and her nausea. She stated that she also feels that she has a hard time breathing. deny any cough. Patient stated that she has not had any bowel movements or passed any flatus. Abdominal pain is 5 out of 10. Patient stated that she is not able take anything down because of nausea and emesis. She stated that she vomited but not as much. Her is at the bedside during the interview. Objective Vitals Vital Signs Date Time Temp Pulse Resp B/P (MAP) Pulse Ox O2 Delivery O2 Flow Rate FiO2 01/24/17 09:00 82 217/102 (140) 01/24/17 07:00 97.6 69 17 204/90 (128) 94 01/24/17 05:29 98.0 73 18 217/92 (133) 95 01/24/17 04:05 218/106 (143) 01/24/17 04:00 223/103 (143) 01/24/17 03:50 97.9 68 18 215/108 (143) 95 01/24/17 03:33 18 01/24/17 00:16 98.7 63 18 157/83 (107) 95 01/23/17 20:55 97.8 66 18 136/83 (100) 95 01/23/17 14:31 97.8 57 18 152/65 (94) 95 I/O 01/23/17 01/23/17 01/23/17 01/24/17 01/24/17 01/24/17 06:59 14:59 22:59 06:59 14:59 22:59 Intake Total 2652 ml 510 ml 240 ml 1450 ml Output Total 250 ml 800 ml 230 ml Balance 2402 ml -290 ml 240 ml 1220 ml Intake Oral 510 ml 240 ml 240 ml IV Total 2652 ml 1210 ml Output Urine Total 800 ml Gastric Drainage Total 250 ml Emesis 230 ml # Voids 2 2 4 # Bowel Movements 0 0 0 Result Diagram: 01/24/1763701/24/17637 Objective Remarks GENERAL: in NAD but looks ill and uncomfortable. CARDIOVASCULAR: Regular rate and rhythm without murmurs, gallops, or rubs. RESPIRATORY: Breath sounds equal bilaterally. No accessory muscle use. GASTROINTESTINAL: Abdomen soft. + TTP midabdomen. + distended, but soft. Negative for any peritoneal signs. Medications and IVs Current Medications Morphine Sulfate (Morphine Inj) 4 mg ONCE ONCE IV PUSH Last administered on 03:48; Start 01/22/17 at 03:30; Stop 01/22/17 at 03:31; Status DC Ondansetron HCl (Zofran Inj) 4 mg ONCE ONCE IVP Last administered on 03:50; Start 01/22/17 at 03:30; Stop 01/22/17 at 03:31; Status DC Sodium Chloride (NS Flush) 2 ml UNSCH PRN IV FLUSH FLUSH AFTER USING IV ACCESS Last administered on 01/23/17 23:02; Start 01/22/17 at 03:30 Pantoprazole Sodium 80 mg/ Sodium Chloride 35 ml @ 420 mls/hr Q5M ONCE IV Last administered on 01/22/17 04:56; Start 01/22/17 at 03:21; Stop 01/22/17 at 03:25; Status DC Pantoprazole Sodium 80 mg/ Sodium Chloride 100 ml @ 10 mls/hr Q10H IV Last administered on 01/23/17 06:41; Start 01/22/17 at 03:21; Stop 01/23/17 at 12 :56; Status DC Iohexol (Omnipaque 350 Inj) 90 ml STK-MED ONCE IVCONTRAST Last administered on 01/22/17 05:23; Start 01/22/17 at 05:23; Stop 01/22/17 at 05:24; Status DC Sodium Chloride 1,000 ml @ 999 mls/hr BOLUS ONCE IV Last administered on 06:36; Start 01/22/17 at 06:15; Stop 01/22/17 at 07:15; Status DC Ondansetron HCl (Zofran Inj) 4 mg ONCE ONCE IV PUSH Last administered on 01/22 06:58; Start 01/22/17 at 07:00; Stop 01/22/17 at 07:01; Status DC Ondansetron HCl (Zofran Inj) 4 mg Q6HR PRN IV PUSH NAUSEA OR VOMITING Last administered on 01/24/17 09:16; Start 01/22/17 at 12:30 Morphine Sulfate (Morphine Inj) 4 mg Q3H PRN IV PUSH pain 1-10 Last administered on 01/24/17 09:17; Start 01/22/17 at 12:30 Bupivacaine HCl/ Epinephrine Bitart (Sensorcaine-Epi 0.5% 50 ml Inj) 50 ml STK- MED ONCE .ROUTE ; Start 01/22/17 at 13:43; Stop 01/22/17 at 13:44; Status DC Bupivacaine HCl/ Epinephrine Bitart (Sensorcaine-Epinephrine 0.25% Inj) 50 ml STK-MED ONCE .ROUTE Last administered on 01/22/17 15:30; Start 01/22/17 at 13:43; Stop 01/22/17 at 13:44; Status DC Famotidine (Pepcid Inj) 20 mg STK-MED ONCE .ROUTE ; Start 01/22/17 at 14:16; Stop 01/22/17 at 14:17; Status DC Cefazolin Sodium (Ancef Inj) 1,000 mg STK-MED ONCE .ROUTE Last administered on 01/22/17 14:35; Start 01/22/17 at 14:25; Stop 01/22/17 at 14:26; Status DC Acetaminophen 100 ml @ As Directed STK-MED ONCE IV ; Start 01/22/17 at 14:35; Stop 01/22/17 at 14:36; Status DC Lactated Ringer's 1,000 ml @ 30 mls/hr Q24H PRN IV SEE LABEL COMMENTS; Start 01/22/17 at 15:00; Stop 01/25/17 at 14:59 Sodium Chloride 500 ml @ 30 mls/hr [id number] PRN IV SEE LABEL COMMENTS; Start at 15:00; Stop 01/25/17 at 14:59 Metoprolol Tartrate (Lopressor) 25 mg ANIMAL CONTROL SPECIALIST PRN PO SEE LABEL COMMENTS; Start 01/22/17 at 15:00; Stop 01/25/17 at 14:59 Povidone Iodine (Betadine 5% Antisepsis Kit) 1 applic ANIMAL CONTROL SPECIALIST PRN EACH NARE SEE LABEL COMMENTS; Start 01/22/17 at 15:00; Stop 01/25/17 at 14:59 Chlorhexidine Gluconate (Chlorhexidine 2% Cloth) 3 pack ANIMAL CONTROL SPECIALIST PRN TOPICAL SEE LABEL COMMENTS; Start 01/22/17 at 15:00; Stop 01/25/17 at 14:59 Insulin Human Regular (NovoLIN R INJ) See Protocol Table ... ANIMAL CONTROL SPECIALIST PRN SQ SEE PROTOCOL TABLE; Start 01/22/17 at 15:00; Stop 01/25/17 at 14:59 Potassium Chloride/Dextrose/ Sod Cl 1,000 ml @ 125 mls/hr Q8H IV Last administered on 01/24/17 09:12; Start 01/22/17 at 15:43 Miscellaneous Information (Post-op Orders (for Pharmacy)) STAT ONCE XX ; Start 01/22/17 at 15:45; Stop 01/22/17 at 15:47; Status DC Acetaminophen 100 ml @ 400 mls/hr Q6H IV Last administered on 01/23/17 09:52 ; Start 01/22/17 at 16:00; Stop 01/23/17 at 10:14; Status DC Morphine Sulfate (*morphine INJ PERIprocedure ONLY) 8 mg STK-MED ONCE .ROUTE Last administered on 01/22/17 16:14; Start 01/22/17 at 16:14; Stop 01/22/17 at 16:15; Status DC Miscellaneous Information ALL NURSING DEPARTME... UNSCH PRN .XX SEE LABEL COMMENTS; Start 01/22/17 at 15:57; Stop 01/23/17 at 15:56; Status DC Padimate O (Chapstick) 1 applic UNSCH PRN TOPICAL CHAPPED LIPS Last administered on 01/23/17 01:38; Start 01/23/17 at 00:00 Benzocaine/Menthol (Chloraseptic [place]) 1 lozenge UNSCH PRN BUCCAL sore throat Last administered on 01/23/17 14:45; Start 01/23/17 at 09:15 Lisinopril (Prinivil) 20 mg DAILY PO Last administered on 01/24/17 09:15; Start 01/23/17 at 10:30 Metoprolol Tartrate (Lopressor) 25 mg BID PO Last administered on 01/24/17 09 :16; Start 01/23/17 at 10:30 Non-Formulary Medication 30 mg DAILY PO ; Start 01/23/17 at 10:30; Stop at 12:56; Status DC Pravastatin Sodium (Pravachol) 40 mg DAILY PO Last administered on 01/24/17 09:16; Start 01/23/17 at 11:00 Pantoprazole Sodium (Protonix) 40 mg DAILY PO Last administered on 01/24/17 09:13; Start 01/23/17 at 13:00 Phenol (Chloraseptic [place]) 2 spray Q2H PRN OROPHARYNG sore throat; Start at 14:00 Enalaprilat (Vasotec Inj) 1.25 mg ONCE ONCE IV PUSH Last administered on 01/24 04:20; Start 01/24/17 at 04:15; Stop 01/24/17 at 04:16; Status DC Promethazine HCl (Phenergan Supp) 12.5 mg ONCE ONCE RECTAL Last administered on 01/24/17 04:21; Start 01/24/17 at 04:15; Stop 01/24/17 at 04:16; Status DC Hydromorphone HCl (Dilaudid Pf Inj) 1 mg ONCE ONCE IV PUSH Last administered on 01/24/17 06:02; Start 01/24/17 at 06:00; Stop 01/24/17 at 06:01; Status DC Clonidine (Catapres) 0.1 mg ONCE ONCE PO Last administered on 01/24/17 10:52 ; Start 01/24/17 at 10:30; Stop 01/24/17 at 10:31; Status DC Clonidine (Catapres) 0.1 mg Q6H PRN PO SBP>180 or DBP>100; Start 01/24/17 at 10:30 Hydralazine HCl (Apresoline Inj) 20 mg Q4H PRN IV PUSH SBP>180 or DBP>100; Start 01/24/17 at 11:15 A/P Assessment and Plan 71 y/o F with hx of HTN, HLP, GERD, hx of hysterectomy who presented with abdominal pain Small bowel obstruction secondary to adhesions -CT scan suggest SBO. -Status post laparoscopic surgery with lysis of adhesions on 01/22/2017 -A stat KUB was done since patient's symptoms got worse when NG was removed. KUB was benign. Discussed case with Dr. Ragland who is covering for Dr. Thomas in regards to patients clinical status and imaging. He agrees with placing NG tube and again. Order placed for NG. -Continue to monitor clinically. Continue with IV fluids. Hypertensive urgency -Most likely secondary to pain since blood pressure went up quickly abruptly and patient's only symptoms are signs of small bowel obstruction. -Vasotec did not improve blood pressure and patient cannot take any oral medication due to nausea/emesis. Patient was transferred to the [facility] and will give IV antihypertensive medication to control blood pressure. -Discussed with patient's nurse Dionna in the [facility]. Dyspnea, subjective -Clinically patient is showing no signs of shortness of breathing and is not hypoxic. Examination was cleared. Chest x-ray is also negative. -Most likely secondary to current illness and she may have some anxiety component. -Will treat the above. Will also give her benzos when necessary for anxiety. ? GI bleed -maybe due to SBO. -patient on protonix gtt. -There is no bloody output from the NG. -Continue to monitor H&H. HTN/HLP/GERD -continue with PRN medication as needed. When patient can tolerate oral intake will restart oral medication. DVT prophylaxis -SCDs. Discharge Planning Patient transferred to [facility] secondary to hypertensive urgency. Discussed with patient, patient's and daughter, nurse on the sixth floor and nurse in the [facility], and with Dr. Ragland. Sade Wong MD Jan 24, 2017 12:08
[2017-01-24] MEDS ORDERED: LORazepam 2 MG/ML VIAL IV PUSH PRN ×2 (12:30→16:00)
[2017-01-24] MEDS ORDERED: LABETALOL HCL 100 MG/20 ML VIAL IV PUSH PRN (12:45)
--- NOTE | 2017-01-24 18:49 | EKG ---
Date Performed: 01/24/2017 Time Performed: 17:47:02 PTAGE: 71 years EKG: Sinus tachycardia. Right bundle branch block Inferior infarct - age undetermined Abnormal E CG Compared to prior electrocardiogram, rate has increased PREVIOUS TRACING : 01/24/2017 06.10 DOCTOR: Rico Alberts Interpretating Date/Time 01/24/2017 18:47:24
[2017-01-24] MEDS ORDERED: SODIUM CHLOR 0.9% 1000 ML INJ 1,000 ML IV SCH (19:00)
[2017-01-25] VITALS (23 sets, daily range): BP systolic 123–182; BP diastolic 68–98; PULSE 86–129; RESP 18–20; TEMP 98–99.3; O2SAT 96–98
[2017-01-25] MEDS: D5-NS + KCL 20 MEQ INJ 1,000 ML IV SCH ×3 (01:02→16:10)
--- NOTE | 2017-01-25 01:07 | HHI.PR ---
Subjective Subjective Notes late entry note from 01/24/17 Objective Vitals/I&O Vital Signs Date Time Temp Pulse Resp B/P (MAP) Pulse Ox O2 Delivery O2 Flow Rate FiO2 01/25/17 00:00 98.0 86 20 146/71 (96) 98 01/24/17 21:14 Nasal Cannula 01/24/17 19:38 2.00 Labs Laboratory Tests Test 01/24/17 06:22 01/24/17 06:38 White Blood Count 10.0 10.6 Red Blood Count 4.67 4.62 Hemoglobin 14.0 14.0 Hematocrit 41.3 40.9 Mean Corpuscular Volume 88.3 88.4 Mean Corpuscular Hemoglobin 30.0 30.3 Mean Corpuscular Hemoglobin Concent 34.0 34.2 Red Cell Distribution Width 12.8 12.3 Platelet Count 219 212 Mean Platelet Volume 7.6 7.3 Blood Urea Nitrogen 7 7 Creatinine 0.54 0.59 Random Glucose 145 145 Calcium Level 9.7 9.4 Sodium Level 139 138 Potassium Level 3.6 3.8 Chloride Level 105 105 Carbon Dioxide Level 28.2 28.0 Anion Gap 6 5 Estimat Glomerular Filtration Rate 112 101 Neutrophils (%) (Auto) 76.6 Lymphocytes (%) (Auto) 12.5 Monocytes (%) (Auto) 8.7 Eosinophils (%) (Auto) 1.9 Basophils (%) (Auto) 0.3 Neutrophils # (Auto) 8.1 Lymphocytes # (Auto) 1.3 Monocytes # (Auto) 0.9 Eosinophils # (Auto) 0.2 Basophils # (Auto) 0.0 CBC Comment DIFF FINAL Differential Comment Magnesium Level 2.1 Radiology Last 48 hours Impressions Chest X-Ray 01/22/17320 Signed Impressions: Service Date/Time: January 03:46 - CONCLUSION: No acute disease. Stiven Heredia MD Abdomen/Pelvis CT 01/22/17320 Signed Impressions: Service Date/Time: January 05:05 - CONCLUSION: Small bowel obstruction with transition point in the left lower quadrant Stiven Heredia MD Abdomen: Non-distended, Post-op tenderness Wound Wound : Wound Location: Abdomen Appearance: Clean & Dry A/P Problem List: (1) Status post laparoscopic procedure ICD Codes: Z98.890 - Other specified postprocedural states Status: Acute Permanent Comment: Lysis of adhesions Last Edited By: Ed Thomas on Jan 13:59 (2) Small bowel obstruction ICD Codes: K56.609 - Unspecified intestinal obstruction, unspecified as to partial versus complete obstruction Status: Acute (3) Intra-abdominal adhesions ICD Codes: K66.0 - Peritoneal adhesions (postprocedural) (postinfection) (4) Abnormal CT of the abdomen ICD Codes: R93.5 - Abnormal findings on diagnostic imaging of other abdominal regions, including retroperitoneum (5) History of hysterectomy ICD Codes: Z90.710 - Acquired absence of both cervix and uterus Assessment and Plan 71 year old female POD2 dx lap; JIE for SBO -NG tube with low output, await bowel function, no flatus or BM yet -Restart home medications -IVF -Pain controlled -OOB and mobilize Juan Francisco Ragland MD Jan 25, 2017 01:07
[2017-01-25] MEDS: MORPHINE SULFATE 4 MG/ML INJ IV PUSH PRN ×5 (02:30→20:38)
[2017-01-25] MEDS ORDERED: METOPROLOL TARTRATE 5 MG/5 ML VIAL IV PUSH ONE (04:00)
[2017-01-25] MEDS ORDERED: METOPROLOL TARTRATE 5 MG/5 ML VIAL IV PUSH SCH (06:15)
--- NOTE | 2017-01-25 07:46 | EKG ---
Date Performed: 01/25/2017 Time Performed: 05:47:52 PTAGE: 71 years EKG: Atrial fibrillation with rapid ventricular response Right bundle branch block Inferior infa rct - age undetermined Low QRS voltages in precordial leads Abnormal ECG Compared to prior electrocar diogram, atrial fibrillation is now present. PREVIOUS TRACING : 01/24/2017 17.47 DOCTOR: Rico Alberts Interpretating Date/Time 01/25/2017 07:45:44
[2017-01-25] MEDS: PANTOPRAZOLE SOD 40 MG DELAYED RELEASE TAB PO SCH (08:21)
[2017-01-25] MEDS: BENZOCAINE 6 MG/MENTHOL 10 MG LOZENGE BUCCAL PRN (08:21)
[2017-01-25] MEDS: PRAVASTATIN SOD 40 MG TAB PO SCH (08:21)
[2017-01-25] MEDS: LISINOPRIL 20 MG TAB PO SCH (08:22)
[2017-01-25] MEDS: METOPROLOL TARTRATE 25 MG TAB PO SCH (08:22)
[2017-01-25 08:36] LABS: MEAN CELL VOLUME 88.5 FL (80.0-100.0); MEAN CORPUSCULAR HEMOGLOBIN 30.8 PG (27.0-34.0); MEAN CORPUSCULAR HGB CONC 34.8 % (32.0-36.0); PLATELET COUNT 233 TH/MM3 (150-450); RED BLOOD COUNT 4.52 MIL/MM3 (4.00-5.30); RED CELL DISTRIBUTION WIDTH 12.2 % (11.6-17.2); REVIEW FLAG FINAL; WHITE BLOOD COUNT 10.9 TH/MM3 (4.0-11.0)
[2017-01-25 08:47] LABS: BICARBONATE 24.6 MEQ/L (21.0-32.0)
[2017-01-25] MEDS ORDERED: METOPROLOL TARTRATE 25 MG TAB PO ONE (09:45)
[2017-01-25] MEDS ORDERED: DILTIAZEM HCL 30 MG TAB PO PRN (09:45)
[2017-01-25] MEDS ORDERED: ASPIRIN EC 81 MG TABEC PO SCH (09:45)
--- NOTE | 2017-01-25 10:07 | HHI.PR ---
Subjective Remarks Follow-up for small bowel obstruction, hypertensive urgency, new onset atrial fibrillation Patient stated that she had a panic attack last night while she felt very shaky. She thinks that Ativan is helping but feels like a higher dose would help. Abdominal pain has improved. Nausea has also improved. She stated that she was a little better but still feels awful. Patient had new onset atrial fibrillation with RVR. She states she has no history of it. Patient takes a baby aspirin at home. Patient stated that yesterday night when she would get up and walk to the restroom she felt like her heart was racing. Deny any chest pain, lightheadedness/ dizziness or shortness of breathing. Patient is at the bedside during the interview. Denied any bowel movement or flatus. Objective Vitals Vital Signs Date Time Temp Pulse Resp B/P (MAP) Pulse Ox O2 Delivery O2 Flow Rate FiO2 01/25/17 08:52 16 01/25/17 08:00 98.4 129 18 123/92 (102) 97 01/25/17 08:00 112 01/25/17 07:23 Nasal Cannula 2.00 01/25/17 05:00 101 01/25/17 04:00 124 01/25/17 03:20 98.0 117 20 155/98 (117) 98 01/25/17 03:00 96 01/25/17 02:00 88 01/25/17 01:00 90 01/25/17 00:00 98.0 86 20 146/71 (96) 98 01/25/17 00:00 88 01/24/17 23:00 88 01/24/17 22:00 96 01/24/17 21:14 Nasal Cannula 01/24/17 21:00 92 01/24/17 20:04 112 146/71 (96) 01/24/17 20:00 114 01/24/17 19:38 Nasal Cannula 2.00 01/24/17 19:36 118 18 143/68 (93) 95 Manual Cuff/Auscultation 01/24/17 19:00 134 01/24/17 18:20 135 01/24/17 18:00 104 01/24/17 17:00 102 01/24/17 16:15 135 18 165/70 (101) 94 01/24/17 16:00 98 01/24/17 16:00 115 18 187/87 (120) 95 01/24/17 15:00 98.0 104 18 168/87 (114) 95 01/24/17 15:00 100 01/24/17 14:00 114 01/24/17 13:00 132 01/24/17 12:20 104 18 182/81 (114) 95 01/24/17 12:15 94 18 172/88 (116) 97 01/24/17 12:10 93 18 177/85 (115) 94 01/24/17 12:05 87 18 157/77 (103) 95 01/24/17 12:00 76 01/24/17 12:00 86 20 210/90 (130) 95 01/24/17 11:00 71 01/24/17 10:45 19 209/97 (134) 94 I/O 01/24/17 01/24/17 01/24/17 01/25/17 01/25/17 01/25/17 07:00 15:00 23:00 07:00 15:00 23:00 Intake Total 1450 ml 1600 ml 2490 ml Output Total 230 ml 800 ml Balance 1220 ml 1600 ml 1690 ml Intake Oral 240 ml 240 ml IV Total 1210 ml 1600 ml 2250 ml Output Urine Total 800 ml Emesis 230 ml # Voids 4 # Bowel Movements 0 Result Diagram: 01/25/1763001/25/17630 Objective Remarks GENERAL: in NAD but looks ill and uncomfortable. NG in place. CARDIOVASCULAR: Irregular rate and irregular rhythm without murmurs, gallops, or rubs. RESPIRATORY: Breath sounds equal bilaterally. No accessory muscle use. GASTROINTESTINAL: Abdomen soft. +mild TTP midabdomen. Drastic improvement in distention. Negative for any peritoneal signs. Medications and IVs Current Medications Morphine Sulfate (Morphine Inj) 4 mg ONCE ONCE IV PUSH Last administered on 03:48; Start 01/22/17 at 03:30; Stop 01/22/17 at 03:31; Status DC Ondansetron HCl (Zofran Inj) 4 mg ONCE ONCE IVP Last administered on 03:50; Start 01/22/17 at 03:30; Stop 01/22/17 at 03:31; Status DC Sodium Chloride (NS Flush) 2 ml UNSCH PRN IV FLUSH FLUSH AFTER USING IV ACCESS Last administered on 01/23/17 23:02; Start 01/22/17 at 03:30 Pantoprazole Sodium 80 mg/ Sodium Chloride 35 ml @ 420 mls/hr Q5M ONCE IV Last administered on 01/22/17 04:56; Start 01/22/17 at 03:21; Stop 01/22/17 at 03:25; Status DC Pantoprazole Sodium 80 mg/ Sodium Chloride 100 ml @ 10 mls/hr Q10H IV Last administered on 01/23/17 06:41; Start 01/22/17 at 03:21; Stop 01/23/17 at 12 :56; Status DC Iohexol (Omnipaque 350 Inj) 90 ml STK-MED ONCE IVCONTRAST Last administered on 01/22/17 05:23; Start 01/22/17 at 05:23; Stop 01/22/17 at 05:24; Status DC Sodium Chloride 1,000 ml @ 999 mls/hr BOLUS ONCE IV Last administered on 06:36; Start 01/22/17 at 06:15; Stop 01/22/17 at 07:15; Status DC Ondansetron HCl (Zofran Inj) 4 mg ONCE ONCE IV PUSH Last administered on 01/22 06:58; Start 01/22/17 at 07:00; Stop 01/22/17 at 07:01; Status DC Ondansetron HCl (Zofran Inj) 4 mg Q6HR PRN IV PUSH NAUSEA OR VOMITING Last administered on 01/24/17 18:07; Start 01/22/17 at 12:30 Morphine Sulfate (Morphine Inj) 4 mg Q3H PRN IV PUSH pain 1-10 Last administered on 01/25/17 08:23; Start 01/22/17 at 12:30 Bupivacaine HCl/ Epinephrine Bitart (Sensorcaine-Epi 0.5% 50 ml Inj) 50 ml STK- MED ONCE .ROUTE ; Start 01/22/17 at 13:43; Stop 01/22/17 at 13:44; Status DC Bupivacaine HCl/ Epinephrine Bitart (Sensorcaine-Epinephrine 0.25% Inj) 50 ml STK-MED ONCE .ROUTE Last administered on 01/22/17 15:30; Start 01/22/17 at 13:43; Stop 01/22/17 at 13:44; Status DC Famotidine (Pepcid Inj) 20 mg STK-MED ONCE .ROUTE ; Start 01/22/17 at 14:16; Stop 01/22/17 at 14:17; Status DC Cefazolin Sodium (Ancef Inj) 1,000 mg STK-MED ONCE .ROUTE Last administered on 01/22/17t 14:35; Start 01/22/17 at 14:25; Stop 01/22/17 at 14:26; Status DC Acetaminophen 100 ml @ As Directed STK-MED ONCE IV ; Start 01/22/17 at 14:35; Stop 01/22/17 at 14:36; Status DC Lactated Ringer's 1,000 ml @ 30 mls/hr Q24H PRN IV SEE LABEL COMMENTS; Start 01/22/17 at 15:00; Stop 01/24/17 at 11:51; Status DC Sodium Chloride 500 ml @ 30 mls/hr [id number] PRN IV SEE LABEL COMMENTS; Start at 15:00; Stop 01/24/17 at 11:51; Status DC Metoprolol Tartrate (Lopressor) 25 mg ELECTROMEDICAL EQUIPMENT TECHNICIAN PRN PO SEE LABEL COMMENTS; Start 01/22/17 at 15:00; Stop 01/24/17 at 11:51; Status DC Povidone Iodine (Betadine 5% Antisepsis Kit) 1 applic ELECTROMEDICAL EQUIPMENT TECHNICIAN PRN EACH NARE SEE LABEL COMMENTS; Start 01/22/17 at 15:00; Stop 01/24/17 at 11:51; Status DC Chlorhexidine Gluconate (Chlorhexidine 2% Cloth) 3 pack ELECTROMEDICAL EQUIPMENT TECHNICIAN PRN TOPICAL SEE LABEL COMMENTS; Start 01/22/17 at 15:00; Stop 01/24/17 at 11:51; Status DC Insulin Human Regular (NovoLIN R INJ) See Protocol Table ... ELECTROMEDICAL EQUIPMENT TECHNICIAN PRN SQ SEE PROTOCOL TABLE; Start 01/22/17 at 15:00; Stop 01/24/17 at 11:51; Status DC Potassium Chloride/Dextrose/ Sod Cl 1,000 ml @ 125 mls/hr Q8H IV Last administered on 01/25/17t 08:23; Start 01/22/17 at 15:43 Miscellaneous Information (Post-op Orders (for Pharmacy)) STAT ONCE XX ; Start 01/22/17 at 15:45; Stop 01/22/17 at 15:47; Status DC Acetaminophen 100 ml @ 400 mls/hr Q6H IV Last administered on 01/23/17 09:52 ; Start 01/22/17 at 16:00; Stop 01/23/17 at 10:14; Status DC Morphine Sulfate (*morphine INJ PERIprocedure ONLY) 8 mg STK-MED ONCE .ROUTE Last administered on 01/22/17 16:14; Start 01/22/17 at 16:14; Stop 01/22/17 at 16:15; Status DC Miscellaneous Information ALL NURSING DEPARTME... UNSCH PRN .XX SEE LABEL COMMENTS; Start 01/22/17 at 15:57; Stop 01/23/17 at 15:56; Status DC Padimate O ([place]) 1 applic UNSCH PRN TOPICAL CHAPPED LIPS Last administered on 01/23/17 01:38; Start 01/23/17 at 00:00 Benzocaine/Menthol (Chloraseptic Stella) 1 lozenge UNSCH PRN BUCCAL sore throat Last administered on 01/25/17 08:21; Start 01/23/17 at 09:15 Lisinopril (Prinivil) 20 mg DAILY PO Last administered on 01/25/17 08:22; Start 01/23/17 at 10:30 Metoprolol Tartrate (Lopressor) 25 mg BID PO Last administered on 01/25/17 08 :22; Start 01/23/17 at 10:30; Stop 01/25/17 at 09:46; Status DC Non-Formulary Medication 30 mg DAILY PO ; Start 01/23/17 at 10:30; Stop at 12:56; Status DC Pravastatin Sodium (Pravachol) 40 mg DAILY PO Last administered on 01/25/17 08:21; Start 01/23/17 at 11:00 Pantoprazole Sodium (Protonix) 40 mg DAILY PO Last administered on 01/25/17 08:21; Start 01/23/17 at 13:00 Phenol (Chloraseptic [place]) 2 spray Q2H PRN OROPHARYNG sore throat; Start at 14:00 Enalaprilat (Vasotec Inj) 1.25 mg ONCE ONCE IV PUSH Last administered on 01/24 04:20; Start 01/24/17 at 04:15; Stop 01/24/17 at 04:16; Status DC Promethazine HCl (Phenergan Supp) 12.5 mg ONCE ONCE RECTAL Last administered on 01/24/17 04:21; Start 01/24/17 at 04:15; Stop 01/24/17 at 04:16; Status DC Hydromorphone HCl (Dilaudid Pf Inj) 1 mg ONCE ONCE IV PUSH Last administered on 01/24/17 06:02; Start 01/24/17 at 06:00; Stop 01/24/17 at 06:01; Status DC Clonidine (Catapres) 0.1 mg ONCE ONCE PO Last administered on 01/24/17 10:52 ; Start 01/24/17 at 10:30; Stop 01/24/17 at 10:31; Status DC Clonidine (Catapres) 0.1 mg Q6H PRN PO SBP>180 or DBP>100; Start 01/24/17 at 10:30 Hydralazine HCl (Apresoline Inj) 20 mg Q4H PRN IV PUSH SBP>180 or DBP>100 Last administered on 01/24/17 18:08; Start 01/24/17 at 11:15 Lorazepam (Ativan Inj) 0.5 mg BID PRN IV PUSH anxiety Last administered on 12:45; Start 01/24/17 at 12:30; Stop 01/24/17 at 15:56; Status DC Labetalol HCl (Trandate Inj) 10 mg Q4H PRN IV PUSH SBP>180 or DBP>100 Last administered on 01/24/17 18:28; Start 01/24/17 at 12:45 Benzocaine/Menthol (Cepacol Extra Stella (Sugar Free)) 1 lozenge Q2HR PRN BUCCAL sore throat; Start 01/24/17 at 16:00 Lorazepam (Ativan Inj) 0.5 mg Q6H PRN IV PUSH anixety; Start 01/24/17 at 16:00 ; Stop 01/25/17 at 09:46; Status DC Sodium Chloride 1,000 ml @ 999 mls/hr Q1H1M IV Last administered on 18:20; Start 01/24/17 at 19:00; Stop 01/24/17 at 20:00; Status DC Metoprolol Tartrate (Lopressor Inj) 5 mg ONCE ONCE IV PUSH Last administered on 01/25/17 04:01; Start 01/25/17 at 04:00; Stop 01/25/17 at 04:01; Status DC Metoprolol Tartrate (Lopressor Inj) 5 mg NOW IV PUSH Last administered on 01/25 06:22; Start 01/25/17 at 06:15; Stop 01/25/17 at 08:00; Status DC Metoprolol Tartrate (Lopressor) 25 mg ONCE ONCE PO ; Start 01/25/17 at 09:45; Stop 01/25/17 at 09:57; Status DC Metoprolol Tartrate (Lopressor) 50 mg Q12HR PO ; Start 01/25/17 at 21:00 Diltiazem HCl (Cardizem) 30 mg Q6HR PRN PO HR>110; Start 01/25/17 at 09:45 Aspirin (Ecotrin Ec) 81 mg DAILY PO ; Start 01/25/17 at 09:45 Lorazepam (Ativan Inj) 1 mg Q6H PRN IV PUSH anixety; Start 01/25/17 at 10:00 A/P Assessment and Plan 71 y/o F with hx of HTN, HLP, GERD, hx of hysterectomy who presented with abdominal pain Small bowel obstruction secondary to adhesions -CT scan suggest SBO. -Status post laparoscopic surgery with lysis of adhesions on 01/22/2017. NG tube replaced on 01/24/2017. -Continue with IV fluids and nothing by mouth except for medication. -Continue with NG tube per management of general surgeon. -General surgeon following. Hypertensive urgency -Most likely secondary to pain since blood pressure went up quickly abruptly and patient's only symptoms are signs of small bowel obstruction. -Resolved with treatment. New onset atrial fibrillation with RVR -Will check TSH, free T4, troponin. Will get a 2-D echo. -Increase metoprolol to 50 mg by mouth twice a day. Will put PRN cardizem for rate control. -CHADSVASC score 3 (age, gender, and HTN). At home patient is on aspirin will continue with aspirin. Most likely she will need to be anticoagulated based on her CHADSVASC score will also wait for graves registration specialist's recommendation. Need to make sure it's okay with surgeon went to start anticoagulation. -Continue with telemetry. -Will consult graves registration specialist. Dyspnea, subjective. Resolved. -Clinically patient is showing no signs of shortness of breathing and is not hypoxic. Examination was cleared. Chest x-ray is also negative. -Most likely secondary to anxiety/panic attack. Patient on Ativan when necessary. ? GI bleed -Unlikely GI bleed. No episode bleeding have been noted. Her hemoglobin has also been stable. -maybe due to SBO. -patient on protonix gtt. -There is no bloody output from the NG. -Continue to monitor H&H. HTN/HLP/GERD -Continue with home medication. DVT prophylaxis -SCDs. Discussed with patient, patient's , patient's daughter (over the phone) and patient's nurse. Sade Wong MD Jan 25, 2017 10:07
--- NOTE | 2017-01-25 11:24 | HHI.PR ---
Subjective Subjective Notes feels ok, no bm or flatus yet, NG tube is bothering her. Objective Vitals/I&O Vital Signs Date Time Temp Pulse Resp B/P (MAP) Pulse Ox O2 Delivery O2 Flow Rate FiO2 01/25/17 11:00 94 01/25/17 08:52 16 01/25/17 08:00 98.4 123/92 (102) 97 01/25/17 07:23 Nasal Cannula 2.00 Labs Laboratory Tests Test 01/25/17 06:31 White Blood Count 10.9 Red Blood Count 4.52 Hemoglobin 13.9 Hematocrit 40.0 Mean Corpuscular Volume 88.5 Mean Corpuscular Hemoglobin 30.8 Mean Corpuscular Hemoglobin Concent 34.8 Red Cell Distribution Width 12.2 Platelet Count 233 Mean Platelet Volume 8.4 Blood Urea Nitrogen 8 Creatinine 0.57 Random Glucose 112 Calcium Level 9.2 Sodium Level 141 Potassium Level 4.0 Chloride Level 109 Carbon Dioxide Level 24.6 Anion Gap 7 Estimat Glomerular Filtration Rate 105 Radiology Last 48 hours Impressions Chest X-Ray 01/22/17320 Signed Impressions: Service Date/Time: January 03:46 - CONCLUSION: No acute disease. Stiven Heredia MD Abdomen/Pelvis CT 01/22/17320 Signed Impressions: Service Date/Time: January 05:05 - CONCLUSION: Small bowel obstruction with transition point in the left lower quadrant Stiven Heredia MD Abdomen: Non-distended, Post-op tenderness, BS normal Narrative Exam periumbilical ecchymosis Wound Wound : Wound Location: Abdomen Appearance: Clean & Dry A/P Problem List: (1) Status post laparoscopic procedure ICD Codes: Z98.890 - Other specified postprocedural states Status: Acute Permanent Comment: Lysis of adhesions Last Edited By: Ed Thomas on Jan 13:59 (2) Small bowel obstruction ICD Codes: K56.609 - Unspecified intestinal obstruction, unspecified as to partial versus complete obstruction Status: Acute (3) Intra-abdominal adhesions ICD Codes: K66.0 - Peritoneal adhesions (postprocedural) (postinfection) (4) Abnormal CT of the abdomen ICD Codes: R93.5 - Abnormal findings on diagnostic imaging of other abdominal regions, including retroperitoneum (5) History of hysterectomy ICD Codes: Z90.710 - Acquired absence of both cervix and uterus Assessment and Plan SBO, s/p lap JIE for adhesion will check KUB to make sure NGT in stomach await bowel function ok for anticoagulation. Antonio Daugherty MD Jan 25, 2017 11:24
--- NOTE | 2017-01-25 11:40 | PD.CONS ---
HPI Consult Requested By Reason for Consult Atrial fibrillation with rapid response Primary Care Physician Vamsi Mcduffie MD History of Present Illness The patient is a pleasant 71-year-old white woman who I'm seeing for atrial fibrillation with rapid response. She has no cardiac history except for a long- standing right bundle branch block and a negative stress test 07/27. She was admitted with bowel obstruction. On 01/22 she underwent diagnostic laparoscopy and lysis of adhesions. Postoperatively she did have some hypertension. Her medications had been held for a number of days. She did go into rapid atrial fibrillation yesterday and her medications have been adjusted with only minimally rapid response now. She has no cardiac symptoms. EKG has shown atrial fibrillation with rapid response and right bundle branch block. Review of Systems Consitutional: COMPLAINS OF: Fatigue Eyes: COMPLAINS OF: Change in vision Respiratory: DENIES: Cough, Snoring Gastrointestinal: COMPLAINS OF: Nausea, Change in bowel habits Genitourinary: DENIES: Urinary incontinence Neurologic: COMPLAINS OF: Memory problems, DENIES: Tingling or numbness Musculoskeletal: COMPLAINS OF: Joint pain Psychiatric: DENIES: Anxiety, Depression Past Family Social History Allergies: Coded Allergies: No Known Allergies (Unverified , 01/22/17) Past Medical History Hypertension Hyperlipidemia Osteoarthritis and spinal stenosis Esophageal reflux Diverticulosis Past Surgical History Hysterectomy Reported Medications Reported Meds & Active Scripts Active Reported Lansoprazole 30 Mg Capdr 30 Mg PO DAILY Metoprolol Tartrate 25 Mg Tab 25 Mg PO BID Lisinopril 20 Mg Tab 20 Mg PO DAILY Simvastatin 20 Mg Tab 20 Mg PO DAILY Active Ordered Medications Current Medications Medications (Trade) Dose Ordered Sig/Jinny Route Start Time Stop Time Status Last Admin (NS Flush) 2 ml UNSCH PRN IV FLUSH 01/22/17 03:30 01/23/17 23:02 (Zofran Inj) 4 mg Q6HR PRN IV PUSH 01/22/17 12:30 01/24/17 18:07 (Morphine Inj) 4 mg Q3H PRN IV PUSH 01/22/17 12:30 01/25/17 08:23 Potassium Chloride/Dextrose/ Sod Cl 1,000 ml @ 125 mls/hr Q8H IV 01/22/17 15:43 01/25/17 08:23 (Chapstick) 1 applic UNSCH PRN TOPICAL 01/23/17 00:00 01/23/17 01:38 (Chloraseptic [place]) 1 lozenge UNSCH PRN BUCCAL 01/23/17 09:15 01/25/17 08:21 (Prinivil) 20 mg DAILY PO 01/23/17 10:30 01/25/17 08:22 (Pravachol) 40 mg DAILY PO 01/23/17 11:00 01/25/17 08:21 (Protonix) 40 mg DAILY PO 01/23/17 13:00 01/25/17 08:21 (Chloraseptic [place]) 2 spray Q2H PRN OROPHARYNG 01/23/17 14:00 (Catapres) 0.1 mg Q6H PRN PO 01/24/17 10:30 (Apresoline Inj) 20 mg Q4H PRN IV PUSH 01/24/17 11:15 01/24/17 18:08 (Trandate Inj) 10 mg Q4H PRN IV PUSH 01/24/17 12:45 01/24/17 18:28 (Cepacol Extra [place] (Sugar Free)) 1 lozenge Q2HR PRN BUCCAL 01/24/17 16:00 (Lopressor) 50 mg Q12HR PO 01/25/17 21:00 (Cardizem) 30 mg Q6HR PRN PO 01/25/17 09:45 (Ecotrin Ec) 81 mg DAILY PO 01/25/17 09:45 01/25/17 09:45 (Ativan Inj) 1 mg Q6H PRN IV PUSH 01/25/17 10:00 Family History Her parents had coronary disease in their 50s to 60s Social History The patient is . She smoked up until recently and has one drink per day. Physical Exam Vital Signs Vital Signs Date Time Temp Pulse Resp B/P (MAP) Pulse Ox O2 Delivery O2 Flow Rate FiO2 01/25/17 11:00 94 01/25/17 10:00 100 01/25/17 09:00 106 01/25/17 08:52 16 01/25/17 08:00 98.4 129 18 123/92 (102) 97 01/25/17 08:00 112 01/25/17 07:23 Nasal Cannula 2.00 01/25/17 07:00 104 01/25/17 05:00 101 01/25/17 04:00 124 01/25/17 03:20 98.0 117 20 155/98 (117) 98 01/25/17 03:00 96 01/25/17 02:00 88 01/25/17 01:00 90 01/25/17 00:00 98.0 86 20 146/71 (96) 98 01/25/17 00:00 88 01/24/17 23:00 88 01/24/17 22:00 96 01/24/17 21:14 Nasal Cannula 01/24/17 21:00 92 01/24/17 20:04 112 146/71 (96) 01/24/17 20:00 114 01/24/17 19:38 Nasal Cannula 2.00 01/24/17 19:36 118 18 143/68 (93) 95 Manual Cuff/Auscultation 01/24/17 19:00 134 01/24/17 18:20 135 01/24/17 18:00 104 01/24/17 17:00 102 01/24/17 16:15 135 18 165/70 (101) 94 01/24/17 16:00 98 01/24/17 16:00 115 18 187/87 (120) 95 01/24/17 15:00 98.0 104 18 168/87 (114) 95 01/24/17 15:00 100 01/24/17 14:00 114 01/24/17 13:00 132 01/24/17 12:20 104 18 182/81 (114) 95 01/24/17 12:15 94 18 172/88 (116) 97 01/24/17 12:10 93 18 177/85 (115) 94 01/24/17 12:05 87 18 157/77 (103) 95 01/24/17 12:00 76 01/24/17 12:00 86 20 210/90 (130) 95 Physical Exam CONSTITUTIONAL: A well-developed, well-nourished patient in no apparent distress. EYES: Conjunctiva normal. Sclera nonicteric. Eyelids normal. No xanthelasma. HEENT: Oral mucosa normal without pallor or cyanosis. NECK: JVD less than or equal to 5 cm of water. RESPIRATORY: Breathing is unlabored without accessory muscle use. Normal breath sounds. No wheezes, rales or rubs present. CARDIOVASCULAR: Normal point of maximal impulse. No cardiac thrill present. Irregular rate and rhythm. No murmurs, gallops, rubs or clicks present. PULSES: Carotid arteries: Normal pulses bilaterally without bruits. Palmar arteries: Radial pulses 2+ bilaterally Abdominal aorta: Aortic pulses normal without bruits or enlargement. Femoral arteries: Deep,1+ bilaterally. No bruits present. Pedal pulses: 2+ bilaterally PERIPHERAL CIRCULATION: No cyanosis, clubbing, edema or varicosities present. GASTROINTESTINAL: Normal bowel sounds. Nontender without rigidity or guarding. No masses present. No hepatomegaly. Liver is nontender to palpation and spleen is nonpalpable. Digital rectal exam-not indicated for cardiovascular exam. MUSCULOSKELETAL: No kyphosis or scoliosis present. The patient is not ambulated. Able to undergo rehabilitation. SKIN: Skin turgor is normal. No rashes. NEUROLOGIC: Grossly oriented to person, place and time. Normal mood and appropriate affect. Laboratory Laboratory Tests Test 01/25/17 06:31 White Blood Count 10.9 Red Blood Count 4.52 Hemoglobin 13.9 Hematocrit 40.0 Mean Corpuscular Volume 88.5 Mean Corpuscular Hemoglobin 30.8 Mean Corpuscular Hemoglobin Concent 34.8 Red Cell Distribution Width 12.2 Platelet Count 233 Mean Platelet Volume 8.4 Blood Urea Nitrogen 8 Creatinine 0.57 Random Glucose 112 Calcium Level 9.2 Sodium Level 141 Potassium Level 4.0 Chloride Level 109 Carbon Dioxide Level 24.6 Anion Gap 7 Estimat Glomerular Filtration Rate 105 Result Diagram: 01/25/1763001/25/17630 Imaging Reviewed. Chest x-ray showed no acute disease. Assessment and Plan Assessment and Plan Problems: Atrial fibrillation with rapid response-the patient has no symptoms and we do not know whether she has had this before. Her antihypertensives including metoprolol were held and this along with postoperative state could have brought it on. Long-standing right bundle branch block Bowel obstruction Hypertension Hyperlipidemia Prior tobacco abuse Recommendations: Ideally we would commit her to full anticoagulation given her age and hypertension. The risks/benefits/alternatives were explained and informed consent obtained. Her is there and is agreeable. I have placed a nursing order to contact the hospitalist and surgeon about initiating this. Most likely on a long-term basis I would use [place]. CT angiogram to rule out pulmonary embolus as she is postoperative. TSH and echocardiogram are pending Continue metoprolol. This can be increased for rate control. She'll most likely need an ischemic workup as an outpatient. Continued tobacco abstinence. All questions were answered. Rico Alberts MD Jan 25, 2017 11:40
[2017-01-25] MEDS: hydrALAZINE HCL 20 MG/ML VIAL IV PUSH PRN (11:48)
--- NOTE | 2017-01-25 12:32 | RADRPT ---
EXAM DATE/TIME: 01/25/2017 11:52 [facility] COMPARISON: ABDOMEN KUB ONLY, January 24, 2017, 10:58. INDICATIONS : Confirm NG tube placement. MEDICAL HISTORY : Hypertension. SURGICAL HISTORY : None. ENCOUNTER: Initial ACUITY: 1 day PAIN SCORE: 0/10 LOCATION: abdomen. FINDINGS: Supine view of the abdomen was performed. There is an NG tube in the stomach. The tip is just within the stomach. The side-port is at the GE junction. Recommend advancing the NG tube approximately 10 cm . The bowel gas pattern is within normal limits. The lung bases are grossly clear. There is osteoarth ritis of the right hip joint. There are degenerative changes in lumbar spine.. CONCLUSION: 1. The tip of the NG tube is just inside the stomach. Recommend advancing the NG tube about 10 cm. Michel Adkins MD on January 25, 2017 at 12:30 Board Certified Radiologist. This report was verified electronically.
[2017-01-25] MEDS ORDERED: IOHEXOL 350 MG/ML 10 ML VIAL (for RAD DIAG) IVCONTRAST ONE (12:46)
--- NOTE | 2017-01-25 12:53 | RADRPT ---
EXAM DATE/TIME: 01/25/2017 12:36 [facility] COMPARISON: No previous studies available for comparison. INDICATIONS : Embolism. IV CONTRAST: 70 cc Omnipaque 350 (iohexol) IV RADIATION DOSE: 11.48 CTDIvol (mGy) MEDICAL HISTORY : Hypertension. Small bowel obstruction. SURGICAL HISTORY : Hysterectomy. ENCOUNTER: Initial ACUITY: 1 day PAIN SCALE: 0/10 LOCATION: chest TECHNIQUE: Volumetric scanning of the chest was performed using a pulmonary embolism protocol MIP images were re constructed. Using automated exposure control and adjustment of the mA and/or kV according to patien t size, radiation dose was kept as low as reasonably achievable to obtain optimal diagnostic quality images. DICOM format image data is available electronically for review and comparison. Follow-up recommendations for detected pulmonary nodules are based at a minimum on nodule size and pa tient risk factors according to Fleischner Society Guidelines. FINDINGS: PULMONARY ARTERIES: No filling defects are seen in the pulmonary arteries through the segmental level. LUNGS: There is no consolidation or pneumothorax . No concerning pulmonary nodule is visualized. There is m inimal bibasilar atelectasis. PLEURAE: There is no pleural thickening or pleural effusion. MEDIASTINUM: There is good visualization of the great vessels of the middle mediastinum. No evidence of mediastin al or hilar adenopathy/mass. MUSCULOSKELETAL: Within normal limits for patient age. MISCELLANEOUS: There is an NG tube in stomach. CONCLUSION: 1. No evidence of pulmonary embolism. 2. Minimal bibasilar atelectasis. No acute pulmonary infiltrates. Michel Adkins MD on January 25, 2017 at 12:49 Board Certified Radiologist. This report was verified electronically.
--- NOTE | 2017-01-25 14:08 | ECHRPT ---
Indication: CONCLUSIONS Normal left ventricular size. Wall thickness is measured at the upper limits of normal. No regional wall motion abnormalities are present. The interatrial septum not well visualized. Mild mitral annular calcification. Trace mitral valve regurgitation. There is trace tricuspid valve regurgitation. The estimated pulmonary arterial pressure is 31mmHg. The pulmonary valve is not well visualized. BP: 123 / 92 HR: 102 Rhythm: MEASUREMENTS (Male / Female) Normal Values Technical Quality:Technically difficult study 2D ECHO LV Diastolic Diameter PLAX 3.8 cm 4.2 - 5.9 / 3.9 - 5.3 cm LV Systolic Diameter PLAX 2.6 cm IVS Diastolic Thickness 1.2 cm 0.6 - 1.0 / 0.6 - 0.9 cm LVPW Diastolic Thickness 1.2 cm 0.6 - 1.0 / 0.6 - 0.9 cm LV Relative Wall Thickness 0.6 RV Internal Dim ED PLAX 2.5 cm LVOT Diameter 2.0 cm LA Systolic Diameter LX 3.3 cm 3.0 - 4.0 / 2.7 - 3.8 cm LV Ejection Fraction MOD 4C 68.0 % LV Cardiac Index MOD 4C 4137.6 cm/minm LV Ejection Fraction 4C AL 69.7 % LV Cardiac Index 4C AL 4404.5 cm/minm M-MODE Aortic Root Diameter MM 3.0 cm LA Systolic Diameter MM 3.3 cm LA Ao Ratio MM 1.1 AV Cusp Separation MM 1.1 cm DOPPLER AV Peak Velocity 124.0 cm/s AV Peak Gradient 6.2 mmHg LVOT Peak Velocity 83.9 cm/s LVOT Peak Gradient 2.8 mmHg AV Area Cont Eq pk 2.1 cm MV Area PHT 3.4 cm LV E' Lateral Velocity 13.8 cm/s LV E' Septal Velocity 7.3 cm/s TR Peak Velocity 231.0 cm/s TR Peak Gradient 21.3 mmHg Right Atrial Pressure 10.0 mmHg Pulmonary Artery Systolic Pressu 31.3 mmHg Right Ventricular Systolic Press 31.3 mmHg PV Peak Velocity 102.0 cm/s PV Peak Gradient 4.2 mmHg FINDINGS LEFT VENTRICLE The left ventricular systolic function is normal with an estimated ejection fraction in the range of 60-65%. Normal left ventricular size. Wall thickness is measured at the upper limits of normal. No regional wall motion abnormalities are present. RIGHT VENTRICLE Normal right ventricular size and systolic function. LEFT ATRIUM The left atrial size is normal. RIGHT ATRIUM The right atrial size is normal. ATRIAL SEPTUM The interatrial septum not well visualized. Normal atrial septal thickness without atrial level shunting by limited color doppler interrogation. AORTA The aortic root and proximal ascending aorta are normal in size on limited imaging. MITRAL VALVE Mild mitral annular calcification. Trace mitral valve regurgitation. AORTIC VALVE Trileaflet aortic valve. No aortic valve stenosis or regurgitation. TRICUSPID VALVE Structurally normal tricuspid valve. There is trace tricuspid valve regurgitation. The estimated pulmonary arterial pressure is 31mmHg. PULMONARY VALVE The pulmonary valve is not well visualized. No pulmonary valve regurgitation or stenosis. VESSELS The inferior vena cava is normal in size. PERICARDIUM No pericardial effusion. Rico Alberts MD (Electronically Signed) Final Date:25 January 2017 14:07
[2017-01-25] MEDS: LORazepam 2 MG/ML VIAL IV PUSH PRN (15:28)
[2017-01-25 16:54] LABS: FREE T4 1.54 NG/DL (0.76-1.46)
[2017-01-25] MEDS: APIXABAN 5 MG TABLET PO SCH (20:38)
[2017-01-25] MEDS: SODIUM CHLORIDE 0.9% FLUSH 10 ML FLUSH IV FLUSH PRN (20:38)
[2017-01-25] MEDS: METOPROLOL TARTRATE 50 MG TAB PO SCH (20:38)
[2017-01-25] MEDS: ONDANSETRON HCL 4 MG/2 ML VIAL IV PUSH PRN (20:47)
[2017-01-26] VITALS (31 sets, daily range): BP systolic 129–166; BP diastolic 71–88; PULSE 100–134; RESP 16–20; TEMP 97.3–100.2; O2SAT 92–99
[2017-01-26] MEDS: D5-NS + KCL 20 MEQ INJ 1,000 ML IV SCH ×4 (00:18→23:57)
[2017-01-26] MEDS: MORPHINE SULFATE 4 MG/ML INJ IV PUSH PRN ×5 (00:24→21:22)
[2017-01-26] MEDS: LORazepam 2 MG/ML VIAL IV PUSH PRN ×2 (01:20→13:04)
[2017-01-26 06:24] LABS: HEMATOCRIT 38.8 % (35.0-46.0); MEAN CELL VOLUME 88.4 FL (80.0-100.0); MEAN CORPUSCULAR HEMOGLOBIN 30.9 PG (27.0-34.0); MEAN CORPUSCULAR HGB CONC 34.9 % (32.0-36.0); PLATELET COUNT 226 TH/MM3 (150-450); RED BLOOD COUNT 4.38 MIL/MM3 (4.00-5.30); RED CELL DISTRIBUTION WIDTH 12.2 % (11.6-17.2); REVIEW FLAG FINAL; WHITE BLOOD COUNT 10.1 TH/MM3 (4.0-11.0)
[2017-01-26 06:50] LABS: BICARBONATE 24.8 MEQ/L (21.0-32.0); POTASSIUM 4.1 MEQ/L (3.5-5.1)
--- NOTE | 2017-01-26 07:31 | PD.CARD.PN ---
Subjective Subjective Remarks The patient states she just does not feel right. She has no true cardiac or respiratory symptoms. She still was not passing gas or bowel movement and is on NG suction. Telemetry reveals mildly rapid atrial fibrillation. Echocardiogram shows normal LV function. Objective Medications Current Medications Medications (Trade) Dose Ordered Sig/Jinny Route Start Time Stop Time Status Last Admin (NS Flush) 2 ml UNSCH PRN IV FLUSH 01/22/17 03:30 01/25/17 20:38 (Zofran Inj) 4 mg Q6HR PRN IV PUSH 01/22/17 12:30 01/25/17 20:47 (Morphine Inj) 4 mg Q3H PRN IV PUSH 01/22/17 12:30 01/26/17 04:35 Potassium Chloride/Dextrose/ Sod Cl 1,000 ml @ 125 mls/hr Q8H IV 01/22/17 15:43 01/26/17 00:18 (Chapstick) 1 applic UNSCH PRN TOPICAL 01/23/17 00:00 01/23/17 01:38 (Chloraseptic [place]) 1 lozenge UNSCH PRN BUCCAL 01/23/17 09:15 01/25/17 08:21 (Prinivil) 20 mg DAILY PO 01/23/17 10:30 01/25/17 08:22 (Pravachol) 40 mg DAILY PO 01/23/17 11:00 01/25/17 08:21 (Protonix) 40 mg DAILY PO 01/23/17 13:00 01/25/17 08:21 (Chloraseptic [place]) 2 spray Q2H PRN OROPHARYNG 01/23/17 14:00 (Catapres) 0.1 mg Q6H PRN PO 01/24/17 10:30 (Apresoline Inj) 20 mg Q4H PRN IV PUSH 01/24/17 11:15 01/25/17 11:48 (Trandate Inj) 10 mg Q4H PRN IV PUSH 01/24/17 12:45 01/24/17 18:28 (Cepacol Extra [place] (Sugar Free)) 1 lozenge Q2HR PRN BUCCAL 01/24/17 16:00 (Lopressor) 50 mg Q12HR PO 01/25/17 21:00 01/25/17 20:38 (Ativan Inj) 1 mg Q6H PRN IV PUSH 01/25/17 10:00 01/26/17 01:20 (Eliquis) 5 mg BID PO 01/25/17 21:00 01/25/17 20:38 Vital Signs / I&O Vital Signs Date Time Temp Pulse Resp B/P (MAP) Pulse Ox O2 Delivery O2 Flow Rate FiO2 01/26/17 06:00 117 01/26/17 05:00 103 01/26/17 04:30 107 20 144/85 (104) 96 01/26/17 04:00 107 01/26/17 03:47 96 01/26/17 03:00 101 01/26/17 02:00 103 01/26/17 01:00 114 01/26/17 00:30 98.3 105 20 151/75 (100) 96 01/26/17 00:00 108 01/25/17 23:00 111 01/25/17 22:00 105 01/25/17 21:00 124 01/25/17 20:00 126 01/25/17 20:00 99.3 113 18 147/78 (101) 96 01/25/17 19:00 96 Nasal Cannula 2.00 01/25/17 19:00 114 01/25/17 18:00 108 01/25/17 17:00 106 01/25/17 16:00 98.2 114 18 139/68 (91) 98 01/25/17 16:00 103 01/25/17 15:45 16 01/25/17 15:00 100 01/25/17 14:00 106 01/25/17 12:00 113 01/25/17 12:00 98.3 101 18 182/94 (123) 97 01/25/17 11:00 94 01/25/17 10:00 100 01/25/17 09:00 106 01/25/17 08:00 98.4 129 18 123/92 (102) 97 01/25/17 08:00 112 I/O 01/25/17 01/25/17 01/25/17 01/26/17 01/26/17 01/26/17 07:00 15:00 23:00 07:00 15:00 23:00 Intake Total 2490 ml 1350 ml 1200 ml Output Total 800 ml 1210 ml 1650 ml Balance 1690 ml 140 ml -450 ml Intake Oral 240 ml 0 ml 200 ml IV Total 2250 ml 1350 ml 1000 ml Output Urine Total 800 ml 1200 ml 750 ml Gastric Drainage Total 10 ml 900 ml # Bowel Movements 0 0 Physical Exam GENERAL: Well-nourished, well-developed patient in no apparent distress. SKIN: Warm and dry. NECK: JVD normal - less than or equal to 5 cm H20. CARDIOVASCULAR: Irregular rate and rhythm without murmurs, gallops, or rubs. RESPIRATORY: Normal breath sounds - equal bilaterally. No accessory muscle use. No wheezes, rales or rubs. PERIPHERY: No cyanosis, or edema. Laboratory Laboratory Tests Test 01/25/17 15:39 01/26/17 06:01 Troponin I LESS THAN 0.02 NG/ML Free Thyroxine 1.54 NG/DL Thyroid Stimulating Hormone 3rd Gen 0.701 uIU/ML White Blood Count 10.1 TH/MM3 Red Blood Count 4.38 MIL/MM3 Hemoglobin 13.5 GM/DL Hematocrit 38.8 % Mean Corpuscular Volume 88.4 FL Mean Corpuscular Hemoglobin 30.9 PG Mean Corpuscular Hemoglobin Concent 34.9 % Red Cell Distribution Width 12.2 % Platelet Count 226 TH/MM3 Mean Platelet Volume 7.6 FL Blood Urea Nitrogen 9 MG/DL Creatinine 0.50 MG/DL Random Glucose 123 MG/DL Calcium Level 9.0 MG/DL Sodium Level 138 MEQ/L Potassium Level 4.1 MEQ/L Chloride Level 107 MEQ/L Carbon Dioxide Level 24.8 MEQ/L Anion Gap 6 MEQ/L Estimat Glomerular Filtration Rate 122 ML/MIN Imaging Last [address] Angiography 01/25/17 0000 Signed Impressions: Service Date/Time: Wednesday, January 25, 2017 12:36 - CONCLUSION: 1. No evidence of pulmonary embolism. 2. Minimal bibasilar atelectasis. No acute pulmonary infiltrates. Michel Adkins MD Abdomen X-Ray 01/25/17 0000 Signed Impressions: Service Date/Time: Wednesday, January 25, 2017 11:52 - CONCLUSION: 1. The tip of the NG tube is just inside the stomach. Recommend advancing the NG tube about 10 cm. Michel Adkins MD Assessment and Plan Assessment and Plan Problems: Atrial fibrillation with rapid response-the patient has no symptoms and we do not know whether she has had this before. Her antihypertensives including metoprolol were held and this along with postoperative state could have brought it on. Long-standing right bundle branch block Bowel obstruction Hypertension Hyperlipidemia Prior tobacco abuse Recommendations: Continue anticoagulation because of embolization risk. CT angiogram was negative for pulmonary embolus. Thyroid functions are normal. Continue metoprolol. This should be increased later today if her rate is still fast. Her tube is being clamped afterwards to allow absorption. I would try to avoid calcium blockers at this point in time because of her decreased bowel motility. She'll most likely need an ischemic workup as an outpatient. Continued tobacco abstinence. One of my partners will see her tomorrow and follow-up. All questions were answered. Rico Alberts MD Jan 26, 2017 07:31
[2017-01-26] MEDS: METOPROLOL TARTRATE 50 MG TAB PO SCH ×2 (08:38→21:12)
[2017-01-26] MEDS: PANTOPRAZOLE SOD 40 MG DELAYED RELEASE TAB PO SCH (08:38)
[2017-01-26] MEDS: APIXABAN 5 MG TABLET PO SCH ×2 (08:38→21:12)
[2017-01-26] MEDS: LISINOPRIL 20 MG TAB PO SCH (08:39)
[2017-01-26] MEDS: PRAVASTATIN SOD 40 MG TAB PO SCH (08:39)
[2017-01-26] MEDS: SODIUM CHLORIDE 0.9% FLUSH 10 ML FLUSH IV FLUSH PRN ×4 (08:40→19:04)
[2017-01-26] MEDS: ONDANSETRON HCL 4 MG/2 ML VIAL IV PUSH PRN (11:05)
--- NOTE | 2017-01-26 11:46 | HHI.PR ---
Subjective Remarks Follow for small bowel resection and a defibrillation with RVR Patient's NG was clamped this morning so that medication can be absorbed. Rate continues to be uncontrolled. Patient has not been ambulating. Denied nausea/vomiting. Feels uncomfortable because of the NG tube. Asking if she can eat. Denied any flatus or bowel movement yet. and nurse at the bedside during the interview. Objective Vitals Vital Signs Date Time Temp Pulse Resp B/P (MAP) Pulse Ox O2 Delivery O2 Flow Rate FiO2 01/26/17 08:32 97.4 117 16 162/88 (112) 97 01/26/17 06:00 117 01/26/17 05:00 103 01/26/17 04:30 107 20 144/85 (104) 96 01/26/17 04:00 107 01/26/17 03:47 96 01/26/17 03:00 101 01/26/17 02:00 103 01/26/17 01:00 114 01/26/17 00:30 98.3 105 20 151/75 (100) 96 01/26/17 00:00 108 01/25/17 23:00 111 01/25/17 22:00 105 01/25/17 21:00 124 01/25/17 20:00 126 01/25/17 20:00 99.3 113 18 147/78 (101) 96 01/25/17 19:00 96 Nasal Cannula 2.00 01/25/17 19:00 114 01/25/17 18:00 108 01/25/17 17:00 106 01/25/17 16:00 98.2 114 18 139/68 (91) 98 01/25/17 16:00 103 01/25/17 15:45 16 01/25/17 15:00 100 01/25/17 14:00 106 01/25/17 12:00 113 01/25/17 12:00 98.3 101 18 182/94 (123) 97 I/O 01/25/17 01/25/17 01/25/17 01/26/17 01/26/17 01/26/17 07:00 15:00 23:00 07:00 15:00 23:00 Intake Total 2490 ml 1350 ml 1200 ml Output Total 800 ml 1210 ml 1650 ml Balance 1690 ml 140 ml -450 ml Intake Oral 240 ml 0 ml 200 ml IV Total 2250 ml 1350 ml 1000 ml Output Urine Total 800 ml 1200 ml 750 ml Gastric Drainage Total 10 ml 900 ml # Bowel Movements 0 0 Result Diagram: 01/26/17 0601 01/26/17 [address] Angiography 01/25/17 0000 Signed Impressions: Service Date/Time: Wednesday, January 25, 2017 12:36 - CONCLUSION: 1. No evidence of pulmonary embolism. 2. Minimal bibasilar atelectasis. No acute pulmonary infiltrates. Michel Adkins MD Abdomen X-Ray 01/25/17 0000 Signed Impressions: Service Date/Time: Wednesday, January 25, 2017 11:52 - CONCLUSION: 1. The tip of the NG tube is just inside the stomach. Recommend advancing the NG tube about 10 cm. Michel Adkins MD Chest X-Ray 01/24/17 0000 Signed Impressions: Service Date/Time: Tuesday, January 24, 2017 11:06 - CONCLUSION: No acute disease. No significant change has occurred. Michel Adkins MD Abdomen/Pelvis CT 01/22/17 0321 Signed Impressions: Service Date/Time: January 05:05 - CONCLUSION: Small bowel obstruction with transition point in the left lower quadrant Stiven Heredia MD Objective Remarks GENERAL: in NAD looks uncomfortable. NG in place. CARDIOVASCULAR: Irregular rate and irregular rhythm without murmurs, gallops, or rubs. RESPIRATORY: Breath sounds equal bilaterally. No accessory muscle use. GASTROINTESTINAL: Abdomen soft. +mild TTP midabdomen. no distension. Negative for any peritoneal signs. Medications and IVs Current Medications Morphine Sulfate (Morphine Inj) 4 mg ONCE ONCE IV PUSH Last administered on 03:48; Start 01/22/17 at 03:30; Stop 01/22/17 at 03:31; Status DC Ondansetron HCl (Zofran Inj) 4 mg ONCE ONCE IVP Last administered on 03:50; Start 01/22/17 at 03:30; Stop 01/22/17 at 03:31; Status DC Sodium Chloride (NS Flush) 2 ml UNSCH PRN IV FLUSH FLUSH AFTER USING IV ACCESS Last administered on 01/26/17 11:30; Start 01/22/17 at 03:30 Pantoprazole Sodium 80 mg/ Sodium Chloride 35 ml @ 420 mls/hr Q5M ONCE IV Last administered on 01/22/17 04:56; Start 01/22/17 at 03:21; Stop 01/22/17 at 03:25; Status DC Pantoprazole Sodium 80 mg/ Sodium Chloride 100 ml @ 10 mls/hr Q10H IV Last administered on 01/23/17 06:41; Start 01/22/17 at 03:21; Stop 01/23/17 at 12 :56; Status DC Iohexol (Omnipaque 350 Inj) 90 ml STK-MED ONCE IVCONTRAST Last administered on 01/22/17 05:23; Start 01/22/17 at 05:23; Stop 01/22/17 at 05:24; Status DC Sodium Chloride 1,000 ml @ 999 mls/hr BOLUS ONCE IV Last administered on 06:36; Start 01/22/17 at 06:15; Stop 01/22/17 at 07:15; Status DC Ondansetron HCl (Zofran Inj) 4 mg ONCE ONCE IV PUSH Last administered on 01/22 06:58; Start 01/22/17 at 07:00; Stop 01/22/17 at 07:01; Status DC Ondansetron HCl (Zofran Inj) 4 mg Q6HR PRN IV PUSH NAUSEA OR VOMITING Last administered on 01/26/17 11:05; Start 01/22/17 at 12:30 Morphine Sulfate (Morphine Inj) 4 mg Q3H PRN IV PUSH pain 1-10 Last administered on 01/26/17 11:30; Start 01/22/17 at 12:30 Bupivacaine HCl/ Epinephrine Bitart (Sensorcaine-Epi 0.5% 50 ml Inj) 50 ml STK- MED ONCE .ROUTE ; Start 01/22/17 at 13:43; Stop 01/22/17 at 13:44; Status DC Bupivacaine HCl/ Epinephrine Bitart (Sensorcaine-Epinephrine 0.25% Inj) 50 ml STK-MED ONCE .ROUTE Last administered on 01/22/17 15:30; Start 01/22/17 at 13:43; Stop 01/22/17 at 13:44; Status DC Famotidine (Pepcid Inj) 20 mg STK-MED ONCE .ROUTE ; Start 01/22/17 at 14:16; Stop 01/22/17 at 14:17; Status DC Cefazolin Sodium (Ancef Inj) 1,000 mg STK-MED ONCE .ROUTE Last administered on 01/22/17t 14:35; Start 01/22/17 at 14:25; Stop 01/22/17 at 14:26; Status DC Acetaminophen 100 ml @ As Directed STK-MED ONCE IV ; Start 01/22/17 at 14:35; Stop 01/22/17 at 14:36; Status DC Lactated Ringer's 1,000 ml @ 30 mls/hr Q24H PRN IV SEE LABEL COMMENTS; Start 01/22/17 at 15:00; Stop 01/24/17 at 11:51; Status DC Sodium Chloride 500 ml @ 30 mls/hr [id number] PRN IV SEE LABEL COMMENTS; Start at 15:00; Stop 01/24/17 at 11:51; Status DC Metoprolol Tartrate (Lopressor) 25 mg SUPERVISOR PAPER MACHINE PRN PO SEE LABEL COMMENTS; Start 01/22/17 at 15:00; Stop 01/24/17 at 11:51; Status DC Povidone Iodine (Betadine 5% Antisepsis Kit) 1 applic SUPERVISOR PAPER MACHINE PRN EACH NARE SEE LABEL COMMENTS; Start 01/22/17 at 15:00; Stop 01/24/17 at 11:51; Status DC Chlorhexidine Gluconate (Chlorhexidine 2% Cloth) 3 pack SUPERVISOR PAPER MACHINE PRN TOPICAL SEE LABEL COMMENTS; Start 01/22/17 at 15:00; Stop 01/24/17 at 11:51; Status DC Insulin Human Regular (NovoLIN R INJ) See Protocol Table ... SUPERVISOR PAPER MACHINE PRN SQ SEE PROTOCOL TABLE; Start 01/22/17 at 15:00; Stop 01/24/17 at 11:51; Status DC Potassium Chloride/Dextrose/ Sod Cl 1,000 ml @ 125 mls/hr Q8H IV Last administered on 01/26/17t 08:39; Start 01/22/17 at 15:43 Miscellaneous Information (Post-op Orders (for Pharmacy)) STAT ONCE XX ; Start 01/22/17 at 15:45; Stop 01/22/17 at 15:47; Status DC Acetaminophen 100 ml @ 400 mls/hr Q6H IV Last administered on 01/23/17 09:52 ; Start 01/22/17 at 16:00; Stop 01/23/17 at 10:14; Status DC Morphine Sulfate (*morphine INJ PERIprocedure ONLY) 8 mg STK-MED ONCE .ROUTE Last administered on 01/22/17 16:14; Start 01/22/17 at 16:14; Stop 01/22/17 at 16:15; Status DC Miscellaneous Information ALL NURSING DEPARTME... UNSCH PRN .XX SEE LABEL COMMENTS; Start 01/22/17 at 15:57; Stop 01/23/17 at 15:56; Status DC Padimate O ([place]) 1 applic UNSCH PRN TOPICAL CHAPPED LIPS Last administered on 01/23/17 01:38; Start 01/23/17 at 00:00 Benzocaine/Menthol (Chloraseptic Stella) 1 lozenge UNSCH PRN BUCCAL sore throat Last administered on 01/25/17 08:21; Start 01/23/17 at 09:15 Lisinopril (Prinivil) 20 mg DAILY PO Last administered on 01/26/17 08:39; Start 01/23/17 at 10:30 Metoprolol Tartrate (Lopressor) 25 mg BID PO Last administered on 01/25/17 08 :22; Start 01/23/17 at 10:30; Stop 01/25/17 at 09:46; Status DC Non-Formulary Medication 30 mg DAILY PO ; Start 01/23/17 at 10:30; Stop at 12:56; Status DC Pravastatin Sodium (Pravachol) 40 mg DAILY PO Last administered on 01/26/17 08:39; Start 01/23/17 at 11:00 Pantoprazole Sodium (Protonix) 40 mg DAILY PO Last administered on 01/26/17 08:38; Start 01/23/17 at 13:00 Phenol (Chloraseptic [place]) 2 spray Q2H PRN OROPHARYNG sore throat; Start at 14:00 Enalaprilat (Vasotec Inj) 1.25 mg ONCE ONCE IV PUSH Last administered on 01/24 04:20; Start 01/24/17 at 04:15; Stop 01/24/17 at 04:16; Status DC Promethazine HCl (Phenergan Supp) 12.5 mg ONCE ONCE RECTAL Last administered on 01/24/17 04:21; Start 01/24/17 at 04:15; Stop 01/24/17 at 04:16; Status DC Hydromorphone HCl (Dilaudid Pf Inj) 1 mg ONCE ONCE IV PUSH Last administered on 01/24/17 06:02; Start 01/24/17 at 06:00; Stop 01/24/17 at 06:01; Status DC Clonidine (Catapres) 0.1 mg ONCE ONCE PO Last administered on 01/24/17 10:52 ; Start 01/24/17 at 10:30; Stop 01/24/17 at 10:31; Status DC Clonidine (Catapres) 0.1 mg Q6H PRN PO SBP>180 or DBP>100; Start 01/24/17 at 10:30 Hydralazine HCl (Apresoline Inj) 20 mg Q4H PRN IV PUSH SBP>180 or DBP>100 Last administered on 01/25/17 11:48; Start 01/24/17 at 11:15 Lorazepam (Ativan Inj) 0.5 mg BID PRN IV PUSH anxiety Last administered on 12:45; Start 01/24/17 at 12:30; Stop 01/24/17 at 15:56; Status DC Labetalol HCl (Trandate Inj) 10 mg Q4H PRN IV PUSH SBP>180 or DBP>100 Last administered on 01/24/17 18:28; Start 01/24/17 at 12:45 Benzocaine/Menthol (Cepacol Extra Stella (Sugar Free)) 1 lozenge Q2HR PRN BUCCAL sore throat; Start 01/24/17 at 16:00 Lorazepam (Ativan Inj) 0.5 mg Q6H PRN IV PUSH anixety; Start 01/24/17 at 16:00 ; Stop 01/25/17 at 09:46; Status DC Sodium Chloride 1,000 ml @ 999 mls/hr Q1H1M IV Last administered on 18:20; Start 01/24/17 at 19:00; Stop 01/24/17 at 20:00; Status DC Metoprolol Tartrate (Lopressor Inj) 5 mg ONCE ONCE IV PUSH Last administered on 01/25/17 04:01; Start 01/25/17 at 04:00; Stop 01/25/17 at 04:01; Status DC Metoprolol Tartrate (Lopressor Inj) 5 mg NOW IV PUSH Last administered on 01/25 06:22; Start 01/25/17 at 06:15; Stop 01/25/17 at 08:00; Status DC Metoprolol Tartrate (Lopressor) 25 mg ONCE ONCE PO Last administered on 09:45; Start 01/25/17 at 09:45; Stop 01/25/17 at 09:57; Status DC Metoprolol Tartrate (Lopressor) 50 mg Q12HR PO Last administered on 01/26/17 08:38; Start 01/25/17 at 21:00 Diltiazem HCl (Cardizem) 30 mg Q6HR PRN PO HR>110 Last administered on 04:42; Start 01/25/17 at 09:45; Stop 01/26/17 at 07:28; Status DC Aspirin (Ecotrin Ec) 81 mg DAILY PO Last administered on 01/25/17 09:45; Start 01/25/17 at 09:45; Stop 01/25/17 at 14:01; Status DC Lorazepam (Ativan Inj) 1 mg Q6H PRN IV PUSH anixety Last administered on 01:20; Start 01/25/17 at 10:00 Iohexol (Omnipaque 350 Inj) 70 ml STK-MED ONCE IVCONTRAST Last administered on 01/25/17 12:46; Start 01/25/17 at 12:46; Stop 01/25/17 at 12:47; Status DC Apixaban (Eliquis) 5 mg BID PO Last administered on 01/26/17 08:38; Start at 21:00 A/P Assessment and Plan 71 y/o F with hx of HTN, HLP, GERD, hx of hysterectomy who presented with abdominal pain Small bowel obstruction secondary to adhesions -CT scan suggest SBO. -Status post laparoscopic surgery with lysis of adhesions on 01/22/2017. NG tube replaced on 01/24/2017. -Continue with IV fluids and nothing by mouth except for medication. May consider advancing diet to clear liquids per general surgeon. -Continue with NG tube per management of general surgeon. -General surgeon following. Hypertensive urgency -Most likely secondary to pain since blood pressure went up quickly abruptly and patient's only symptoms are signs of small bowel obstruction. -Resolved with treatment. New onset atrial fibrillation with RVR -TSH normal. Echo reviewed concerns. -Hand Cloth Cutter consulted and following. Per currency examiner if heart rate continues be uncontrolled increase metoprolol. Advised to avoid Cardizem since that can decrease bowel movement. -Since heart rate continues be uncontrolled will increase metoprolol to 75 mg by mouth twice a day. -CHADSVASC score 3 (age, gender, and HTN). Patient on Eliquis. she is aware of the risks, benefits, side effects of medication. -Continue with telemetry. Dyspnea, subjective. Resolved. -Clinically patient is showing no signs of shortness of breathing and is not hypoxic. Examination was cleared. Chest x-ray is also negative. -Most likely secondary to anxiety/panic attack. Patient on Ativan when necessary. ? GI bleed -Unlikely GI bleed. No episode bleeding have been noted. Her hemoglobin has also been stable. -maybe due to SBO. -patient on protonix gtt. -There is no bloody output from the NG. -Continue to monitor H&H. HTN/HLP/GERD -Continue with home medication. DVT prophylaxis -SCDs. Discussed with patient, her and nurse. Sade Wong MD Jan 26, 2017 11:46
[2017-01-26] MEDS ORDERED: METOPROLOL TARTRATE 25 MG TAB PO ONE (12:00)
[2017-01-26] MEDS ORDERED: PILL SPLITTER OTHER PRN (12:00)
[2017-01-26] MEDS: DOCUSATE SODIUM 100 MG CAP PO SCH ×2 (12:44→21:12)
[2017-01-26] MEDS: BENZOCAINE-MENTHOL (SUGAR FREE) 15 MG-3.6 MG LOZENGE BUCCAL PRN (12:50)
[2017-01-26] MEDS ORDERED: ATROPINE SULFATE 1 MG/10 ML SYRINGE ONE (13:59)
[2017-01-26] MEDS ORDERED: EPINEPHrine HCL (1:10,000) 1 MG/10 ML SYRINGE ONE (13:59)
[2017-01-26] MEDS ORDERED: LIDOCAINE HCL 2% 100 MG/5 ML SYRINGE ONE (13:59)
[2017-01-26] MEDS: METOCLOPRAMIDE HCL 10 MG/2 ML VIAL IV PUSH SCH ×2 (14:25→21:12)
--- NOTE | 2017-01-26 15:05 | RADRPT ---
EXAM DATE/TIME: 01/26/2017 14:49 [facility] COMPARISON: CT ABDOMEN & PELVIS W CONTRAST, January 22, 2017, 5:05. ABDOMEN KUB ONLY, January 25, 2017, 11:52. INDICATIONS : NG tube placement, nausea, small bowel obstruction. MEDICAL HISTORY : Hypertension. SURGICAL HISTORY : None. ENCOUNTER: Initial ACUITY: 4 - 6 days PAIN SCORE: 10/10 LOCATION: Bilateral abdomen. FINDINGS: 2 views of the abdomen demonstrate some thickened loops of small bowel in the midabdomen. There are a ir-fluid levels on the upright exam study would raise concern for bowel obstruction. There is however stool and gas within the colon. There is a nasogastric tube present. The tip of the tube is just through the gastroesophageal junctio n. The osseous structures demonstrate degenerative changes but are otherwise intact. CONCLUSION: 1. Abnormal exam demonstrating dilating thickened loops of small bowel in the midabdomen with air-flu id levels. This would raise concern for bowel obstruction. Higinio Kearney MD on January 26, 2017 at 15:02 Board Certified Radiologist. This report was verified electronically.
[2017-01-26] MEDS ORDERED: METOPROLOL TARTRATE 5 MG/5 ML VIAL IV PUSH ONE (18:45)
--- NOTE | 2017-01-26 18:47 | HHI.PR ---
cc: Ed Thomas MD Subjective Subjective Notes DAILY PROGRESS NOTE FOR SURGICAL ATTENDING, DR. ED THOMAS Doing good Minimal pain Would like some hot tea but cannot have it due to caffeine Objective Vitals/I&O Allergies Coded Allergies Type Severity Reaction Last Updated Verified No Known Allergies 01/22/17 No Recent Impressions Abdomen X-Ray 01/26/17 0000 Signed Impressions: Service Date/Time: Thursday, January 26, 2017 14:49 - CONCLUSION: 1. Abnormal exam demonstrating dilating thickened loops of small bowel in the midabdomen with air-fluid levels. This would raise concern for bowel obstruction. Higinio Kearney MD CT Angiography 01/25/17 0000 Signed Impressions: Service Date/Time: Wednesday, January 25, 2017 12:36 - CONCLUSION: 1. No evidence of pulmonary embolism. 2. Minimal bibasilar atelectasis. No acute pulmonary infiltrates. Michel Adkins MD Abdomen X-Ray 01/25/17 0000 Signed Impressions: Service Date/Time: Wednesday, January 25, 2017 11:52 - CONCLUSION: 1. The tip of the NG tube is just inside the stomach. Recommend advancing the NG tube about 10 cm. Michel Adkins MD 01/25/17 01/25/17 01/26/17 01/26/17 01/27/17 01/27/17 06:00 18:00 06:00 18:00 06:00 18:00 Intake Total 4090 ml 1350 ml 1200 ml 3840 ml Output Total 800 ml 1210 ml 1650 ml 3050 ml Balance 3290 ml 140 ml -450 ml 790 ml Intake Oral 240 ml 0 ml 200 ml 840 ml IV Total 3850 ml 1350 ml 1000 ml 3000 ml Output Urine Total 800 ml 1200 ml 750 ml 1100 ml Gastric Drainage Total 10 ml 900 ml 1950 ml # Voids 1 # Bowel Movements 0 0 0 Laboratory Tests Test 01/25/17 06:31 01/25/17 15:39 01/26/17 06:01 01/27/17 06:12 White Blood Count 10.9 TH/MM3 10.1 TH/MM3 10.4 TH/MM3 Red Blood Count 4.52 MIL/MM3 4.38 MIL/MM3 4.41 MIL/MM3 Hemoglobin 13.9 GM/DL 13.5 GM/DL 13.5 GM/DL Hematocrit 40.0 % 38.8 % 38.7 % Mean Corpuscular Volume 88.5 FL 88.4 FL 87.7 FL Mean Corpuscular Hemoglobin 30.8 PG 30.9 PG 30.6 PG Mean Corpuscular Hemoglobin Concent 34.8 % 34.9 % 34.8 % Red Cell Distribution Width 12.2 % 12.2 % 12.4 % Platelet Count 233 TH/MM3 226 TH/MM3 250 TH/MM3 Mean Platelet Volume 8.4 FL 7.6 FL 8.0 FL Blood Urea Nitrogen 8 MG/DL 9 MG/DL Creatinine 0.57 MG/DL 0.50 MG/DL Random Glucose 112 MG/DL 123 MG/DL Calcium Level 9.2 MG/DL 9.0 MG/DL Sodium Level 141 MEQ/L 138 MEQ/L Potassium Level 4.0 MEQ/L 4.1 MEQ/L Chloride Level 109 MEQ/L 107 MEQ/L Carbon Dioxide Level 24.6 MEQ/L 24.8 MEQ/L Anion Gap 7 MEQ/L 6 MEQ/L Estimat Glomerular Filtration Rate 105 ML/MIN 122 ML/MIN Troponin I LESS THAN 0.02 NG/ML Free Thyroxine 1.54 NG/DL Thyroid Stimulating Hormone 3rd Gen 0.701 uIU/ML Orders Procedure Category Date Status Time Clonidine (Catapres) MED 01/24/17 Complete 10:30 ^ Other Nursing Orders SEAN 01/24/17 In Process 10:18 Clonidine (Catapres) MED 01/24/17 In Process 10:30 Patient Transfer ADMITTING 01/24/17 Transmitted Abdomen, Kub Only RADDIAG 01/24/17 Resulted Hydralazine Inj MED 01/24/17 In Process (Apresoline Inj) 11:15 Chest, Single Ap RADDIAG 01/24/17 Resulted Insert Ng Tube SEAN 01/24/17 In Process 11:54 Place Ng Tube To Low SEAN 01/24/17 In Process Intermit 11:54 Cbc No Diff, Includes LAB 01/25/17 Complete Plts 06:00 Basic Metabolic Panel LAB 01/25/17 Complete (Bmp) 06:00 Lorazepam Inj (Ativan MED 01/24/17 Complete Inj) 12:30 Labetalol Inj MED 01/24/17 In Process (Trandate Inj) 12:45 Benzocain-Menthol MED 01/24/17 In Process (Sugar Free) (Cepacol 16:00 Lorazepam Inj (Ativan MED 01/24/17 Complete Inj) 16:00 Electrocardiogram CAV 01/24/17 Resulted 17:47 Diet Npo Except Meds DIET 01/24/17 Complete Dinner Sodium Chlor 0.9% MED 01/24/17 Complete 1000 Ml Inj (Ns 1000 M 19:00 Metoprolol Tartrate MED 01/25/17 Complete Inj (Lopressor Inj) 04:00 Electrocardiogram CAV 01/25/17 Resulted Metoprolol Tartrate MED 01/25/17 Complete Inj (Lopressor Inj) 06:15 Vascular Access Team SEAN 01/25/17 Complete Consult/P 09:13 Echo 2d Comp With ECH 01/25/17 Resulted Doppler Consult Cardiology CONS 01/25/17 Transmitted Metoprolol Tartrate MED 01/25/17 Complete (Lopressor) 09:45 Metoprolol Tartrate MED 01/25/17 Complete (Lopressor) 21:00 Diltiazem (Cardizem) MED 01/25/17 Complete 09:45 Aspirin Ec (Ecotrin MED 01/25/17 Complete Ec) 09:45 Lorazepam Inj (Ativan MED 01/25/17 In Process Inj) 10:00 Thyroid Stimulating LAB 01/25/17 Complete Hormone 10:07 Free Thyroxine (T4) LAB 01/25/17 Complete 10:07 Troponin I LAB 01/25/17 Complete 10:13 Cbc No Diff, Includes LAB 01/26/17 Complete Plts 06:00 Basic Metabolic Panel LAB 01/26/17 Complete (Bmp) 06:00 (Hub Use Only)Inp Phy CONS 01/25/17 Transmitted Cons/Ref Abdomen, Kub Only RADDIAG 01/25/17 Resulted ^ Other Nursing Orders SEAN 01/25/17 In Process 11:32 Ct Pulmonary Angiogram RADCT 01/25/17 Resulted Iohexol 350 Inj MED 01/25/17 Complete (Omnipaque 350 Inj) 12:46 Apixaban (Eliquis) MED 01/25/17 In Process 21:00 Metoprolol Tartrate MED 01/26/17 Complete (Lopressor) 12:00 Metoprolol Tartrate MED 01/26/17 In Process (Lopressor) 21:00 Docusate Sodium MED 01/26/17 In Process (Colace) 12:00 Cbc No Diff, Includes LAB 01/27/17 Complete Plts 06:00 Basic Metabolic Panel LAB 01/27/17 In Process (Bmp) 06:00 Pill Splitter (Pill MED 01/26/17 In Process Splitter) 12:00 Abdomen, Flat & RADDIAG 01/26/17 Resulted Upright Diet Liquid DIET 01/26/17 Transmitted Lunch ^ Other Nursing Orders SEAN 01/26/17 In Process 13:21 Metoclopramide Inj MED 01/26/17 In Process (Reglan Inj) 14:00 Atropine Inj MED 01/26/17 Complete (Atropine Inj) 13:59 Lidocaine 2% Inj MED 01/26/17 Complete (Xylocaine 2% Inj) 13:59 Epinephrine MED 01/26/17 Complete (1:10,000) Inj 13:59 Physician Name Changes ADMITTING 01/26/17 Transmitted Metoprolol Tartrate MED 01/26/17 Complete Inj (Lopressor Inj) 18:45 Vital Signs Date Time Temp Pulse Resp B/P (MAP) Pulse Ox O2 Delivery O2 Flow Rate FiO2 01/27/17 06:00 109 01/27/17 05:00 98 01/27/17 04:00 104 01/27/17 03:30 99.4 111 18 121/71 (88) 97 01/27/17 03:00 106 01/27/17 02:00 107 01/27/17 01:00 105 01/27/17 00:00 106 01/26/17 23:00 100 01/26/17 23:00 100.2 103 16 129/74 (92) 97 01/26/17 22:00 110 01/26/17 21:00 130 01/26/17 20:00 95 Nasal Cannula 2.00 01/26/17 20:00 120 01/26/17 20:00 98.3 129 16 166/85 (112) 95 01/26/17 19:00 134 01/26/17 18:39 120 01/26/17 17:10 116 01/26/17 16:34 106 01/26/17 15:50 97.3 108 16 143/78 (99) 96 01/26/17 15:00 107 01/26/17 14:00 100 01/26/17 13:00 106 01/26/17 12:00 102 01/26/17 11:30 97.6 104 16 144/71 (95) 99 01/26/17 11:00 112 01/26/17 10:00 120 01/26/17 09:00 120 01/26/17 08:32 97.4 117 16 162/88 (112) 97 01/26/17 08:30 112 01/26/17 08:00 117 01/26/17 07:30 117 01/26/17 07:30 98 Nasal Cannula 2.00 01/26/17 06:00 117 01/26/17 05:00 103 01/26/17 04:30 107 20 144/85 (104) 96 01/26/17 04:00 107 01/26/17 03:47 96 01/26/17 03:00 101 01/26/17 02:00 103 01/26/17 01:00 114 01/26/17 00:30 98.3 105 20 151/75 (100) 96 01/26/17 00:00 108 01/25/17 23:00 111 01/25/17 22:00 105 01/25/17 21:00 124 01/25/17 20:00 126 01/25/17 20:00 99.3 113 18 147/78 (101) 96 01/25/17 19:00 96 Nasal Cannula 2.00 01/25/17 19:00 114 01/25/17 18:00 108 01/25/17 17:00 106 01/25/17 16:00 98.2 114 18 139/68 (91) 98 01/25/17 16:00 103 01/25/17 15:45 16 01/25/17 15:00 100 01/25/17 14:00 106 01/25/17 12:00 113 01/25/17 12:00 98.3 101 18 182/94 (123) 97 01/25/17 11:00 94 01/25/17 10:00 100 01/25/17 09:00 106 01/25/17 08:00 98.4 129 18 123/92 (102) 97 01/25/17 08:00 112 01/25/17 07:23 Nasal Cannula 2.00 01/25/17 07:00 104 01/25/17 05:00 101 01/25/17 04:00 124 01/25/17 03:20 98.0 117 20 155/98 (117) 98 01/25/17 03:00 96 01/25/17 02:00 88 01/25/17 01:00 90 01/25/17 00:00 98.0 86 20 146/71 (96) 98 01/25/17 00:00 88 01/24/17 23:00 88 01/24/17 22:00 96 01/24/17 21:14 Nasal Cannula 01/24/17 21:00 92 01/24/17 20:04 112 146/71 (96) 01/24/17 20:00 114 01/24/17 19:38 Nasal Cannula 2.00 01/24/17 19:36 118 18 143/68 (93) 95 Manual Cuff/Auscultation 01/24/17 19:00 134 01/24/17 18:20 135 01/24/17 18:00 104 01/24/17 17:00 102 01/24/17 16:15 135 18 165/70 (101) 94 01/24/17 16:00 98 01/24/17 16:00 115 18 187/87 (120) 95 01/24/17 15:00 98.0 104 18 168/87 (114) 95 01/24/17 15:00 100 01/24/17 14:00 114 01/24/17 13:00 132 01/24/17 12:20 104 18 182/81 (114) 95 01/24/17 12:15 94 18 172/88 (116) 97 01/24/17 12:10 93 18 177/85 (115) 94 01/24/17 12:05 87 18 157/77 (103) 95 01/24/17 12:00 76 01/24/17 12:00 86 20 210/90 (130) 95 01/24/17 11:00 71 01/24/17 10:45 19 209/97 (134) 94 01/24/17 09:00 82 217/102 (140) Vital Signs Date Time Temp Pulse Resp B/P (MAP) Pulse Ox O2 Delivery O2 Flow Rate FiO2 01/26/17 18:39 120 01/26/17 15:50 97.3 16 143/78 (99) 96 01/26/17 07:30 Nasal Cannula 2.00 Labs Laboratory Tests Test 01/26/17 06:01 White Blood Count 10.1 Red Blood Count 4.38 Hemoglobin 13.5 Hematocrit 38.8 Mean Corpuscular Volume 88.4 Mean Corpuscular Hemoglobin 30.9 Mean Corpuscular Hemoglobin Concent 34.9 Red Cell Distribution Width 12.2 Platelet Count 226 Mean Platelet Volume 7.6 Blood Urea Nitrogen 9 Creatinine 0.50 Random Glucose 123 Calcium Level 9.0 Sodium Level 138 Potassium Level 4.1 Chloride Level 107 Carbon Dioxide Level 24.8 Anion Gap 6 Estimat Glomerular Filtration Rate 122 Radiology Last 48 hours Impressions Chest X-Ray 01/22/17320 Signed Impressions: Service Date/Time: January 03:46 - CONCLUSION: No acute disease. Stiven Heredia MD Abdomen/Pelvis CT 01/22/17320 Signed Impressions: Service Date/Time: January 05:05 - CONCLUSION: Small bowel obstruction with transition point in the left lower quadrant Stiven Heredia MD Cardiovascular: Regular Lungs: Clear Abdomen: Other (lap sites c/d/i; brusing around umbilicus ) Extremities: No edema Narrative Exam NGT in place Operative slightly down A/P Problem List: (1) Status post laparoscopic procedure ICD Codes: Z98.890 - Other specified postprocedural states Status: Acute Permanent Comment: Lysis of adhesions Last Edited By: Ed Thomas on Jan 13:59 (2) Small bowel obstruction ICD Codes: K56.609 - Unspecified intestinal obstruction, unspecified as to partial versus complete obstruction Status: Acute (3) Intra-abdominal adhesions ICD Codes: K66.0 - Peritoneal adhesions (postprocedural) (postinfection) (4) Abnormal CT of the abdomen ICD Codes: R93.5 - Abnormal findings on diagnostic imaging of other abdominal regions, including retroperitoneum (5) History of hysterectomy ICD Codes: Z90.710 - Acquired absence of both cervix and uterus Assessment and Plan 71 year old female POD4 dx lap; JIE for SBO -NGT to LIWS -Start sips of clears -BP management per Cardiology and HEPAS -IVF -Pain control -OOB and mobilize Attending Statement NOTE FOR SURGICAL ATTENDING, DR. ED THOMAS Spoke with bedside Abdomen soft NG tube adjusted Okay for sips and chips Okay for crackers Would like some tea but cardiology wants her to avoid caffeine I agree with above assessment and plan. The exam, history, and the medical decision-making described in the above note were completed with the assistance of the mid-level provider. I reviewed and agree with the findings presented. I attest that I had a [id number] encounter with the patient on the same day, and personally performed and documented my assessment and findings in the medical record. The following services were provided during this hospital visit: Chart data review, vital sign assessments/reviewing monitor data Review of consultations notes if present. Medication orders/review and/or management Ordering and/or reviewing lab tests Ordering and/or interpreting/reviewing x-rays and/or diagnostic studies Care of the patient and discussion of the patient with the care team Documentation time To help prompt me to consider important information that might be impacting today's encounter and assessment, information from prior notes written by myself or my colleagues may have been "brought forward/copy and pasted" into today's note. Maya Moreno Jan 26, 2017 18:47 Ed Thomas MD Jan 27, 2017 07:25
[2017-01-27] VITALS (22 sets, daily range): BP systolic 96–136; BP diastolic 55–77; PULSE 93–128; RESP 15–20; TEMP 97.5–99.4; O2SAT 90–97
[2017-01-27] MEDS: MORPHINE SULFATE 4 MG/ML INJ IV PUSH PRN ×2 (01:34→08:35)
[2017-01-27] MEDS: ONDANSETRON HCL 4 MG/2 ML VIAL IV PUSH PRN ×2 (01:34→19:54)
[2017-01-27] MEDS: LORazepam 2 MG/ML VIAL IV PUSH PRN ×2 (05:58→12:29)
[2017-01-27] MEDS: METOCLOPRAMIDE HCL 10 MG/2 ML VIAL IV PUSH SCH ×3 (05:58→20:44)
[2017-01-27 07:00] LABS: HEMATOCRIT 38.7 % (35.0-46.0); MEAN CELL VOLUME 87.7 FL (80.0-100.0); MEAN CORPUSCULAR HEMOGLOBIN 30.6 PG (27.0-34.0); MEAN CORPUSCULAR HGB CONC 34.8 % (32.0-36.0); PLATELET COUNT 250 TH/MM3 (150-450); RED BLOOD COUNT 4.41 MIL/MM3 (4.00-5.30); RED CELL DISTRIBUTION WIDTH 12.4 % (11.6-17.2); REVIEW FLAG FINAL; WHITE BLOOD COUNT 10.4 TH/MM3 (4.0-11.0)
[2017-01-27 07:31] LABS: POTASSIUM 3.9 MEQ/L (3.5-5.1)
--- NOTE | 2017-01-27 08:24 | HHI.PR ---
Subjective Remarks Follow up for SBO s/p surgery, Afib with RVR. Patient currently has some abdominal discomfort but denies any fever or chills. NG tube in place and draining. Objective Vitals Vital Signs Date Time Temp Pulse Resp B/P (MAP) Pulse Ox O2 Delivery O2 Flow Rate FiO2 01/27/17 06:00 109 01/27/17 05:00 98 01/27/17 04:00 104 01/27/17 03:30 99.4 111 18 121/71 (88) 97 01/27/17 03:00 106 01/27/17 02:00 107 01/27/17 01:00 105 01/27/17 00:00 106 01/26/17 23:00 100 01/26/17 23:00 100.2 103 16 129/74 (92) 97 01/26/17 22:00 110 01/26/17 21:00 130 01/26/17 20:00 95 Nasal Cannula 2.00 01/26/17 20:00 120 01/26/17 20:00 98.3 129 16 166/85 (112) 95 01/26/17 19:00 134 01/26/17 18:39 120 01/26/17 17:10 116 01/26/17 16:34 106 01/26/17 15:50 97.3 108 16 143/78 (99) 96 01/26/17 15:00 107 01/26/17 14:00 100 01/26/17 13:00 106 01/26/17 12:00 102 01/26/17 11:30 97.6 104 16 144/71 (95) 99 01/26/17 11:00 112 01/26/17 10:00 120 01/26/17 09:00 120 01/26/17 08:32 97.4 117 16 162/88 (112) 97 01/26/17 08:30 112 I/O 01/26/17 01/26/17 01/26/17 01/27/17 01/27/17 01/27/17 07:00 15:00 23:00 07:00 15:00 23:00 Intake Total 1200 ml 2100 ml 1740 ml Output Total 1650 ml 1950 ml 1100 ml Balance -450 ml 150 ml 640 ml Intake Oral 200 ml 600 ml 240 ml IV Total 1000 ml 1500 ml 1500 ml Output Urine Total 750 ml 600 ml 500 ml Gastric Drainage Total 900 ml 1350 ml 600 ml # Voids 1 # Bowel Movements 0 0 Result Diagram: 01/27/17 0612 01/27/17 0612 Imaging Last Impressions Abdomen X-Ray 01/26/17 0000 Signed Impressions: Service Date/Time: Thursday, January 26, 2017 14:49 - CONCLUSION: 1. Abnormal exam demonstrating dilating thickened loops of small bowel in the midabdomen with air-fluid levels. This would raise concern for bowel obstruction. Higinio Kearney MD CT Angiography 01/25/17 0000 Signed Impressions: Service Date/Time: Wednesday, January 25, 2017 12:36 - CONCLUSION: 1. No evidence of pulmonary embolism. 2. Minimal bibasilar atelectasis. No acute pulmonary infiltrates. Michel Adkins MD Chest X-Ray 01/24/17 0000 Signed Impressions: Service Date/Time: Tuesday, January 24, 2017 11:06 - CONCLUSION: No acute disease. No significant change has occurred. Michel Adkins MD Abdomen/Pelvis CT 01/22/17 0321 Signed Impressions: Service Date/Time: January 05:05 - CONCLUSION: Small bowel obstruction with transition point in the left lower quadrant Stiven Heredia MD Objective Remarks GENERAL: Alert, oriented 3, NAD. SKIN: Warm and dry. HEAD: Normocephalic. EYES: No scleral icterus. No injection or drainage. NECK: Supple, trachea midline. No JVD or lymphadenopathy. CARDIOVASCULAR: Irregularly irregular, tachycardic without murmurs, gallops, or rubs. RESPIRATORY: Breath sounds equal bilaterally. No accessory muscle use. GASTROINTESTINAL: Abdomen soft, non-tender, nondistended. NG tube in place. MUSCULOSKELETAL: No cyanosis, or edema. BACK: Nontender without obvious deformity. No CVA tenderness. Procedures Echo 01/25/2017 Normal left ventricular size. Wall thickness is measured at the upper limits of normal. No regional wall motion abnormalities are present. The interatrial septum not well visualized. Mild mitral annular calcification. Trace mitral valve regurgitation. There is trace tricuspid valve regurgitation. The estimated pulmonary arterial pressure is 31mmHg. The pulmonary valve is not well visualized. 01/22/2017 PROCEDURE Diagnostic laparoscopy, lysis of adhesions. Assessment to: Remove A/P Problem List: (1) Atrial fibrillation with RVR ICD Code: I48.91 - Unspecified atrial fibrillation (2) Small bowel obstruction ICD Code: K56.609 - Unspecified intestinal obstruction, unspecified as to partial versus complete obstruction Status: Acute Assessment and Plan Ms. Velásquez is a 71 year old female with a history of hypertension, hyperlipidemia , diverticulitis who was admitted to the hospital on 01/22/2017 due to abdominal pain and emesis. A CT abdomen and pelvis was obtained which shows a small bowel obstruction with a transition point in the left lower quadrant. General surgery was consulted. Patient underwent dx laparascopy, lysis of adhesions on 01/22/2017. During this admission, she also developed Afib with RVR for which Cardiology was consulted. - Small bowel obstruction secondary to adhesions - CT scan indicated SBO. - Status post laparoscopic surgery with lysis of adhesions on 01/22/2017. - NG tube replaced on 01/24/2017. - Continue with IV fluids and nothing by mouth except for medication. - Currently on liquid diet. Encourage ambulation. - New onset atrial fibrillation with RVR - TSH 0.701. - Vp Rheumatology following. - Will increase metoprolol from 75mg BID to 75mg Q8hrs. - Advised to avoid Cardizem since that can decrease bowel movement. - Since heart rate continues be uncontrolled will increase metoprolol to 75 mg by mouth twice a day. - CHADSVASC score 3 (age, gender, and HTN). Patient on Eliquis. she is aware of the risks, benefits, side effects of medication. - Continue with telemetry. - Hypertensive urgency - Currently normotensive. Continue lisinopril 20 mg daily. Clonidine when necessary. - Dyspnea, subjective. Resolved. - Clinically patient is showing no signs of shortness of breathing and is not hypoxic. Chest x-ray is also negative. - Most likely secondary to anxiety/panic attack. Patient on Ativan when necessary. Hyperlipidemia GERD - Continue pravastatin 40 mg daily and pantoprazole 40 mg by mouth daily Okay to transfer to med-surg with telemetry. Full code. Apixaban 5mg BID. Roberto Baugh DO Jan 27, 2017 8:24 am
[2017-01-27] MEDS: APIXABAN 5 MG TABLET PO SCH ×2 (08:33→20:44)
[2017-01-27] MEDS: METOPROLOL TARTRATE 50 MG TAB PO SCH ×3 (08:33→20:44)
[2017-01-27] MEDS: LISINOPRIL 20 MG TAB PO SCH (08:34)
[2017-01-27] MEDS: DOCUSATE SODIUM 100 MG CAP PO SCH ×2 (08:34→20:44)
[2017-01-27] MEDS: PRAVASTATIN SOD 40 MG TAB PO SCH (08:34)
[2017-01-27] MEDS: SODIUM CHLORIDE 0.9% FLUSH 10 ML FLUSH IV FLUSH PRN (08:37)
[2017-01-27] MEDS: D5-NS + KCL 20 MEQ INJ 1,000 ML IV SCH ×3 (08:37→20:45)
[2017-01-27] MEDS: PANTOPRAZOLE SOD 40 MG DELAYED RELEASE TAB PO SCH (08:40)
[2017-01-27] MEDS ORDERED: ACETAMINOPHEN 500 MG CPLT PO PRN (09:15)
--- NOTE | 2017-01-27 10:44 | HHI.PR ---
cc: Ed Owens MD Subjective Subjective Notes PROGRESS NOTE FOR SURGICAL ATTENDING, DR. ED OWENS A little emotional today at bedside Objective Vitals/I&O Vital Signs Date Time Temp Pulse Resp B/P (MAP) Pulse Ox O2 Delivery O2 Flow Rate FiO2 01/27/17 10:00 115 01/27/17 09:10 20 01/27/17 07:50 97.8 136/69 (91) 96 01/26/17 20:00 Nasal Cannula 2.00 Labs Laboratory Tests Test 01/27/17 06:12 White Blood Count 10.4 Red Blood Count 4.41 Hemoglobin 13.5 Hematocrit 38.7 Mean Corpuscular Volume 87.7 Mean Corpuscular Hemoglobin 30.6 Mean Corpuscular Hemoglobin Concent 34.8 Red Cell Distribution Width 12.4 Platelet Count 250 Mean Platelet Volume 8.0 Blood Urea Nitrogen 8 Creatinine 0.46 Random Glucose 127 Calcium Level 9.7 Sodium Level 137 Potassium Level 3.9 Chloride Level 103 Carbon Dioxide Level 28.0 Anion Gap 6 Estimat Glomerular Filtration Rate 135 Radiology Last 48 hours Impressions Chest X-Ray 01/22/17320 Signed Impressions: Service Date/Time: January 03:46 - CONCLUSION: No acute disease. Stiven Heredia MD Abdomen/Pelvis CT 01/22/17320 Signed Impressions: Service Date/Time: January 05:05 - CONCLUSION: Small bowel obstruction with transition point in the left lower quadrant Stiven Heredia MD Cardiovascular: Regular Lungs: Clear Abdomen: Other (minimally distended; lap sites c/d/i; brusing around umbilicus ) Extremities: No edema Narrative Exam NGT in place A/P Problem List: (1) Status post laparoscopic procedure ICD Codes: Z98.890 - Other specified postprocedural states Status: Acute Permanent Comment: Lysis of adhesions Last Edited By: Ed Owens on Jan 13:59 (2) Small bowel obstruction ICD Codes: K56.609 - Unspecified intestinal obstruction, unspecified as to partial versus complete obstruction Status: Acute (3) Intra-abdominal adhesions ICD Codes: K66.0 - Peritoneal adhesions (postprocedural) (postinfection) (4) Abnormal CT of the abdomen ICD Codes: R93.5 - Abnormal findings on diagnostic imaging of other abdominal regions, including retroperitoneum (5) History of hysterectomy ICD Codes: Z90.710 - Acquired absence of both cervix and uterus Assessment and Plan 71 year old female POD5 dx lap; JIE for SBO -NGT to LIWS -Start sips of clears ---okay for crackers -BP management per Cardiology and HEPAS -IVF -Pain control -OOB and mobilize -Continues to progress Attending Statement has contrast in colon still has ileus encourage ambulation check electrolytes PROGRESS NOTE FOR SURGICAL ATTENDING, DR. ED OWENS I agree with above assessment and plan. The exam, history, and the medical decision-making described in the above note were completed with the assistance of the mid-level provider. I reviewed and agree with the findings presented. I attest that I had a [id number] encounter with the patient on the same day, and personally performed and documented my assessment and findings in the medical record. The following services were provided during this hospital visit: Chart data review, vital sign assessments/reviewing monitor data Review of consultations notes if present. Medication orders/review and/or management Ordering and/or reviewing lab tests Ordering and/or interpreting/reviewing x-rays and/or diagnostic studies Care of the patient and discussion of the patient with the care team Documentation time To help prompt me to consider important information that might be impacting today's encounter and assessment, information from prior notes written by myself or my colleagues may have been "brought forward/copy and pasted" into today's note. Maya Moreno Jan 27, 2017 10:44 Ed Owens MD Jan 28, 2017 08:56
[2017-01-27] MEDS: ACETAMINOPHEN/HYDROcodone 325 MG/5 MG TAB PO PRN ×2 (12:01→20:45)
--- NOTE | 2017-01-27 16:19 | PD.CARD.PN ---
Subjective Subjective Remarks No events overnight Emotional today Telemetry showing Afib with RVR, BB increased to 75mg TID today and rates somewhat better Objective Medications Current Medications Medications (Trade) Dose Ordered Sig/Jinny Route Start Time Stop Time Status Last Admin (NS Flush) 2 ml UNSCH PRN IV FLUSH 01/22/17 03:30 01/27/17 08:37 (Zofran Inj) 4 mg Q6HR PRN IV PUSH 01/22/17 12:30 01/27/17 01:34 (Morphine Inj) 4 mg Q3H PRN IV PUSH 01/22/17 12:30 01/27/17 08:35 Potassium Chloride/Dextrose/ Sod Cl 1,000 ml @ 125 mls/hr Q8H IV 01/22/17 15:43 01/27/17 08:37 (Chapstick) 1 applic UNSCH PRN TOPICAL 01/23/17 00:00 01/23/17 01:38 (Chloraseptic [place]) 1 lozenge UNSCH PRN BUCCAL 01/23/17 09:15 01/25/17 08:21 (Prinivil) 20 mg DAILY PO 01/23/17 10:30 01/27/17 08:34 (Pravachol) 40 mg DAILY PO 01/23/17 11:00 01/27/17 08:34 (Protonix) 40 mg DAILY PO 01/23/17 13:00 01/27/17 08:40 (Chloraseptic [place]) 2 spray Q2H PRN OROPHARYNG 01/23/17 14:00 (Catapres) 0.1 mg Q6H PRN PO 01/24/17 10:30 (Apresoline Inj) 20 mg Q4H PRN IV PUSH 01/24/17 11:15 01/25/17 11:48 (Trandate Inj) 10 mg Q4H PRN IV PUSH 01/24/17 12:45 01/24/17 18:28 (Cepacol Extra [place] (Sugar Free)) 1 lozenge Q2HR PRN BUCCAL 01/24/17 16:00 01/26/17 12:50 (Ativan Inj) 1 mg Q6H PRN IV PUSH 01/25/17 10:00 01/27/17 12:29 (Eliquis) 5 mg BID PO 01/25/17 21:00 01/27/17 08:33 (Colace) 100 mg BID PO 01/26/17 12:00 01/27/17 08:34 (Pill Splitter) 1 ea UNSCH PRN OTHER 01/26/17 12:00 (Reglan Inj) 5 mg Q8HR IV PUSH 01/26/17 14:00 01/27/17 14:59 ([place] 5-325 Mg) 1 tab Q6H PRN PO 01/27/17 09:15 01/27/17 12:01 (Tylenol) 500 mg Q4H PRN PO 01/27/17 09:15 (Lopressor) 75 mg Q8HR PO 01/27/17 14:00 01/27/17 14:59 Vital Signs / I&O Vital Signs Date Time Temp Pulse Resp B/P (MAP) Pulse Ox O2 Delivery O2 Flow Rate FiO2 01/27/17 15:00 105 01/27/17 14:00 108 01/27/17 13:06 20 01/27/17 13:00 98 01/27/17 12:00 98.6 107 18 130/77 (94) 97 01/27/17 12:00 93 01/27/17 12:00 104 01/27/17 11:00 110 01/27/17 10:00 115 01/27/17 10:00 128 01/27/17 09:10 20 01/27/17 09:00 126 01/27/17 08:00 124 01/27/17 08:00 96 Nasal Cannula 2.00 01/27/17 07:50 97.8 125 15 136/69 (91) 96 01/27/17 07:00 112 01/27/17 06:00 109 01/27/17 05:00 98 01/27/17 04:00 104 01/27/17 03:30 99.4 111 18 121/71 (88) 97 01/27/17 03:00 106 01/27/17 02:00 107 01/27/17 01:00 105 01/27/17 00:00 106 01/26/17 23:00 100 01/26/17 23:00 100.2 103 16 129/74 (92) 97 01/26/17 22:00 110 01/26/17 21:00 130 01/26/17 20:00 95 Nasal Cannula 2.00 01/26/17 20:00 120 01/26/17 20:00 98.3 129 16 166/85 (112) 95 01/26/17 19:00 134 01/26/17 18:39 120 01/26/17 17:10 116 01/26/17 16:34 106 I/O 01/26/17 01/26/17 01/26/17 01/27/17 01/27/17 01/27/17 06:59 14:59 22:59 06:59 14:59 22:59 Intake Total 1200 ml 2100 ml 1740 ml Output Total 1650 ml 1950 ml 1100 ml 1050 ml Balance -450 ml 150 ml 640 ml -1050 ml Intake Oral 200 ml 600 ml 240 ml IV Total 1000 ml 1500 ml 1500 ml Output Urine Total 750 ml 600 ml 500 ml Gastric Drainage Total 900 ml 1350 ml 600 ml 1050 ml # Voids 1 # Bowel Movements 0 0 Physical Exam GENERAL: NAD, emotional SKIN: Warm and dry. HEAD: Atraumatic. Normocephalic. EYES: Pupils equal and round. No scleral icterus. No injection or drainage. ENT: No nasal bleeding or discharge. Mucous membranes pink and moist. NGT in place NECK: Trachea midline. No JVD. CARDIOVASCULAR: Irregularly irregular RESPIRATORY: No accessory muscle use. Clear to auscultation. Breath sounds equal bilaterally. GASTROINTESTINAL: Abdomen soft, non-tender, nondistended. Hepatic and splenic margins not palpable. MUSCULOSKELETAL: Extremities without clubbing, cyanosis, or edema. No obvious deformities. NEUROLOGICAL: Awake and alert. No obvious cranial nerve deficits. Motor grossly within normal limits. Five out of 5 muscle strength in the arms and legs. Normal speech. PSYCHIATRIC: Appropriate mood and affect; insight and judgment normal. Laboratory Laboratory Tests Test 01/27/17 06:12 White Blood Count 10.4 TH/MM3 Red Blood Count 4.41 MIL/MM3 Hemoglobin 13.5 GM/DL Hematocrit 38.7 % Mean Corpuscular Volume 87.7 FL Mean Corpuscular Hemoglobin 30.6 PG Mean Corpuscular Hemoglobin Concent 34.8 % Red Cell Distribution Width 12.4 % Platelet Count 250 TH/MM3 Mean Platelet Volume 8.0 FL Blood Urea Nitrogen 8 MG/DL Creatinine 0.46 MG/DL Random Glucose 127 MG/DL Calcium Level 9.7 MG/DL Sodium Level 137 MEQ/L Potassium Level 3.9 MEQ/L Chloride Level 103 MEQ/L Carbon Dioxide Level 28.0 MEQ/L Anion Gap 6 MEQ/L Estimat Glomerular Filtration Rate 135 ML/MIN Assessment and Plan Problem List: (1) Atrial fibrillation with RVR ICD Codes: I48.91 - Unspecified atrial fibrillation (2) Small bowel obstruction ICD Codes: K56.609 - Unspecified intestinal obstruction, unspecified as to partial versus complete obstruction Status: Acute (3) Intra-abdominal adhesions ICD Codes: K66.0 - Peritoneal adhesions (postprocedural) (postinfection) Assessment and Plan 1) Afib with RVR Possibly due to being off BB and overall illness/increased sympathetics 2) BB increased today Con't to follow on telemetry 3) SBO per surgery 4) Con't Eliquis 5) Outpatient follow up for ischemic evaluation Robert Millard DO Jan 27, 2017 16:19
[2017-01-28] VITALS (7 sets, daily range): BP systolic 100–152; BP diastolic 55–83; PULSE 89–122; RESP 18–19; TEMP 95.7–98.4; O2SAT 91–95
[2017-01-28] MEDS: ACETAMINOPHEN/HYDROcodone 325 MG/5 MG TAB PO PRN (02:57)
[2017-01-28] MEDS: METOPROLOL TARTRATE 50 MG TAB PO SCH ×3 (04:11→22:00)
[2017-01-28] MEDS: LORazepam 2 MG/ML VIAL IV PUSH PRN (05:12)
[2017-01-28] MEDS: METOCLOPRAMIDE HCL 10 MG/2 ML VIAL IV PUSH SCH ×3 (05:12→21:06)
[2017-01-28] MEDS: PANTOPRAZOLE SOD 40 MG DELAYED RELEASE TAB PO SCH (08:21)
[2017-01-28] MEDS: DOCUSATE SODIUM 100 MG CAP PO SCH ×2 (08:22→21:06)
[2017-01-28] MEDS: APIXABAN 5 MG TABLET PO SCH ×2 (08:22→21:06)
[2017-01-28] MEDS: LISINOPRIL 20 MG TAB PO SCH (08:22)
[2017-01-28] MEDS: PRAVASTATIN SOD 40 MG TAB PO SCH (08:22)
[2017-01-28] MEDS: BENZOCAINE-MENTHOL (SUGAR FREE) 15 MG-3.6 MG LOZENGE BUCCAL PRN (10:21)
[2017-01-28] MEDS: ONDANSETRON HCL 4 MG/2 ML VIAL IV PUSH PRN ×2 (10:33→17:58)
[2017-01-28] MEDS: SODIUM CHLORIDE 0.9% FLUSH 10 ML FLUSH IV FLUSH PRN ×3 (10:34→18:02)
--- NOTE | 2017-01-28 10:39 | HHI.PR ---
cc: Ed Thomas MD Subjective Subjective Notes DAILY PROGRESS NOTE FOR SURGICAL ATTENDING, DR. ED THOMAS Irritated by NGT at bedside Objective Vitals/I&O Vital Signs Date Time Temp Pulse Resp B/P (MAP) Pulse Ox O2 Delivery O2 Flow Rate FiO2 01/28/17 07:59 98.4 106 18 125/64 (04) 95 01/27/17 19:00 Room Air 01/27/17 08:00 2.00 Radiology Last 72 hours Impressions Small Bowel X-Ray 01/28/17 0000 Signed Impressions: Service Date/Time: Saturday, January 28, 2017 13:37 - CONCLUSION: Negative examination with no evidence of dilated small bowel obstruction. Juan M Bettencourt MD Abdomen X-Ray 01/26/17 0000 Signed Impressions: Service Date/Time: Thursday, January 26, 2017 14:49 - CONCLUSION: 1. Abnormal exam demonstrating dilating thickened loops of small bowel in the midabdomen with air-fluid levels. This would raise concern for bowel obstruction. Higinio Kearney MD Cardiovascular: Regular Lungs: Clear Abdomen: Other (lap sites c/d/i; brusing around umbilicus; soft; non distended ) Extremities: No edema Narrative Exam NGT in place A/P Problem List: (1) Status post laparoscopic procedure ICD Codes: Z98.890 - Other specified postprocedural states Status: Acute Permanent Comment: Lysis of adhesions Last Edited By: Ed Thomas on Jan 13:59 (2) Small bowel obstruction ICD Codes: K56.609 - Unspecified intestinal obstruction, unspecified as to partial versus complete obstruction Status: Acute (3) Intra-abdominal adhesions ICD Codes: K66.0 - Peritoneal adhesions (postprocedural) (postinfection) (4) Abnormal CT of the abdomen ICD Codes: R93.5 - Abnormal findings on diagnostic imaging of other abdominal regions, including retroperitoneum (5) History of hysterectomy ICD Codes: Z90.710 - Acquired absence of both cervix and uterus Assessment and Plan 71 year old female POD6 dx lap; JIE for SBO -Clamp NGT; connect to LIWS if n/v occur -Plan for SBFT today -BP management per Cardiology and HEPAS -IVF -Pain control -OOB and mobilize Attending Statement NOTE FOR SURGICAL ATTENDING, DR. ED THOMAS Patient seen Discussed with daughter Daughter at bedside Small bowel follow-through shows no obstruction Still having some nausea and vomiting No bowel movement We will leave the NG tube in for tonight Provide suppository Recheck laboratory data Adjust pain medication I agree with above assessment and plan. The exam, history, and the medical decision-making described in the above note were completed with the assistance of the mid-level provider. I reviewed and agree with the findings presented. I attest that I had a [id number] encounter with the patient on the same day, and personally performed and documented my assessment and findings in the medical record. The following services were provided during this hospital visit: Chart data review, vital sign assessments/reviewing monitor data Review of consultations notes if present. Medication orders/review and/or management Ordering and/or reviewing lab tests Ordering and/or interpreting/reviewing x-rays and/or diagnostic studies Care of the patient and discussion of the patient with the care team Documentation time To help prompt me to consider important information that might be impacting today's encounter and assessment, information from prior notes written by myself or my colleagues may have been "brought forward/copy and pasted" into today's note. Maya Moreno Jan 28, 2017 10:39 Ed Thomas MD Jan 28, 2017 21:06
[2017-01-28] MEDS: D5-NS + KCL 20 MEQ INJ 1,000 ML IV SCH ×2 (12:13→17:02)
[2017-01-28] MEDS ORDERED: DIATRIZOATE MEGLUM/DIATRIZOATE SOD 120 ML BTL (for RAD DIAG) NG ONE (13:41)
--- NOTE | 2017-01-28 14:39 | HHI.PR ---
Subjective Remarks Patient in bed , family at bedside. Was tachycardic when she ambulated Took a shower and feels tired. Still nauseated, no vomiting. Did not have a BM. No fever or chills. With abd cramps at times. Objective Vitals Vital Signs Date Time Temp Pulse Resp B/P (MAP) Pulse Ox O2 Delivery O2 Flow Rate FiO2 01/28/17 12:00 97.4 122 19 152/83 (106) 95 01/28/17 08:20 95 Room Air 01/28/17 08:10 121 01/28/17 07:59 98.4 106 18 125/64 (84) 95 01/28/17 04:00 94 01/28/17 04:00 96.2 115 18 128/69 (88) 93 01/28/17 00:45 95.7 113 18 120/55 (76) 91 01/27/17 20:00 110 01/27/17 20:00 97.5 111 18 96/55 (69) 90 01/27/17 19:00 Room Air 01/27/17 18:00 95 01/27/17 17:00 97 01/27/17 16:00 111 01/27/17 16:00 98.4 111 20 133/71 (91) 94 01/27/17 15:00 105 I/O 01/27/17 01/27/17 01/27/17 01/28/17 01/28/17 01/28/17 06:59 14:59 22:59 06:59 14:59 22:59 Intake Total 1740 ml 120 ml 120 ml Output Total 1100 ml 1050 ml 900 ml Balance 640 ml -1050 ml -780 ml 120 ml Intake Oral 240 ml 120 ml 120 ml IV Total 1500 ml Output Urine Total 500 ml 300 ml Gastric Drainage Total 600 ml 1050 ml 600 ml # Bowel Movements 0 Result Diagram: 01/27/1712 01/27/17611 Imaging Last Impressions Abdomen X-Ray 01/26/17 0000 Signed Impressions: Service Date/Time: Thursday, January 26, 2017 14:49 - CONCLUSION: 1. Abnormal exam demonstrating dilating thickened loops of small bowel in the midabdomen with air-fluid levels. This would raise concern for bowel obstruction. Higinio Kearney MD CT Angiography 01/25/17 0000 Signed Impressions: Service Date/Time: Wednesday, January 25, 2017 12:36 - CONCLUSION: 1. No evidence of pulmonary embolism. 2. Minimal bibasilar atelectasis. No acute pulmonary infiltrates. Michel Adkins MD Chest X-Ray 01/24/17 0000 Signed Impressions: Service Date/Time: Tuesday, January 24, 2017 11:06 - CONCLUSION: No acute disease. No significant change has occurred. Michel Adkins MD Abdomen/Pelvis CT 01/22/17 0321 Signed Impressions: Service Date/Time: January 05:05 - CONCLUSION: Small bowel obstruction with transition point in the left lower quadrant Stiven Heredia MD Objective Remarks GENERAL: Alert, oriented 3, NAD. CARDIOVASCULAR: Irregularly irregular, tachycardic without murmurs, gallops, or rubs. RESPIRATORY: Breath sounds equal bilaterally. No accessory muscle use. GASTROINTESTINAL: Abdomen soft, non-tender, nondistended. NG tube in place. MUSCULOSKELETAL: No cyanosis, or edema. BACK: Nontender without obvious deformity. No CVA tenderness. Procedures Echo 01/25/2017 Normal left ventricular size. Wall thickness is measured at the upper limits of normal. No regional wall motion abnormalities are present. The interatrial septum not well visualized. Mild mitral annular calcification. Trace mitral valve regurgitation. There is trace tricuspid valve regurgitation. The estimated pulmonary arterial pressure is 31mmHg. The pulmonary valve is not well visualized. 01/22/2017 PROCEDURE Diagnostic laparoscopy, lysis of adhesions. A/P Problem List: (1) Atrial fibrillation with RVR ICD Code: I48.91 - Unspecified atrial fibrillation (2) Small bowel obstruction ICD Code: K56.609 - Unspecified intestinal obstruction, unspecified as to partial versus complete obstruction Status: Acute Assessment and Plan Ms. Velásquez is a 71 year old female with a history of hypertension, hyperlipidemia , diverticulitis who was admitted to the hospital on 01/22/2017 due to abdominal pain and emesis. A CT abdomen and pelvis was obtained which shows a small bowel obstruction with a transition point in the left lower quadrant. General surgery was consulted. Patient underwent dx laparascopy, lysis of adhesions on 01/22/2017. During this admission, she also developed Afib with RVR for which Cardiology was consulted. - Small bowel obstruction secondary to adhesions - CT scan indicated SBO. - Status post laparoscopic surgery with lysis of adhesions on 01/22/2017. - NG tube replaced on 01/24/2017. - Continue with IV fluids and nothing by mouth except for medication. Advance diet per surgeon - Currently on liquid diet. Encourage ambulation. - New onset atrial fibrillation with RVR - TSH 0.701. - Web Development Manager following. - Increase metoprolol from 75mg BID to 75mg Q8hrs. If no improvement plan to load with digoxin per cardio Dr Chan. - Advised to avoid Cardizem since that can decrease bowel movement. - Since heart rate continues be uncontrolled will increase metoprolol to 75 mg by mouth twice a day. - CHADSVASC score 3 (age, gender, and HTN). Patient on Eliquis. she is aware of the risks, benefits, side effects of medication. - Continue with telemetry. - Hypertensive urgency - Currently normotensive. Continue lisinopril 20 mg daily. Clonidine when necessary. - Dyspnea, subjective. Resolved. - Clinically patient is showing no signs of shortness of breathing and is not hypoxic. Chest x-ray is also negative. - Most likely secondary to anxiety/panic attack. Patient on Ativan when necessary. Hyperlipidemia GERD - Continue pravastatin 40 mg daily and pantoprazole 40 mg by mouth daily Full code. Apixaban 5mg BID. Discussed with the patient, nurse, Dr Chan cardio PRERNA plan: pending improvement. Still with NG tube Anna Barnhart MD Jan 28, 2017 14:39
--- NOTE | 2017-01-28 16:01 | PD.CARD.PN ---
Subjective Subjective Remarks No events overnight Less emotional today, just doesn't feel well Telemetry showing sinus tachycardia 100-110 bpm Objective Medications Current Medications Medications (Trade) Dose Ordered Sig/Jinny Route Start Time Stop Time Status Last Admin (NS Flush) 2 ml UNSCH PRN IV FLUSH 01/22/17 03:30 01/28/17 15:04 (Zofran Inj) 4 mg Q6HR PRN IV PUSH 01/22/17 12:30 01/28/17 10:33 (Morphine Inj) 4 mg Q3H PRN IV PUSH 01/22/17 12:30 01/27/17 08:35 Potassium Chloride/Dextrose/ Sod Cl 1,000 ml @ 125 mls/hr Q8H IV 01/22/17 15:43 01/28/17 12:13 ([place]stick) 1 applic UNSCH PRN TOPICAL 01/23/17 00:00 01/23/17 01:38 (Chloraseptic [place]) 1 lozenge UNSCH PRN BUCCAL 01/23/17 09:15 01/25/17 08:21 (Prinivil) 20 mg DAILY PO 01/23/17 10:30 01/28/17 08:22 (Pravachol) 40 mg DAILY PO 01/23/17 11:00 01/28/17 08:22 (Protonix) 40 mg DAILY PO 01/23/17 13:00 01/28/17 08:21 (Chloraseptic [place]) 2 spray Q2H PRN OROPHARYNG 01/23/17 14:00 (Catapres) 0.1 mg Q6H PRN PO 01/24/17 10:30 (Apresoline Inj) 20 mg Q4H PRN IV PUSH 01/24/17 11:15 01/25/17 11:48 (Trandate Inj) 10 mg Q4H PRN IV PUSH 01/24/17 12:45 01/24/17 18:28 (Cepacol Extra [place] (Sugar Free)) 1 lozenge Q2HR PRN BUCCAL 01/24/17 16:00 01/28/17 10:21 (Ativan Inj) 1 mg Q6H PRN IV PUSH 01/25/17 10:00 01/28/17 05:12 (Eliquis) 5 mg BID PO 01/25/17 21:00 01/28/17 08:22 (Colace) 100 mg BID PO 01/26/17 12:00 01/28/17 08:22 (Pill Splitter) 1 ea UNSCH PRN OTHER 01/26/17 12:00 (Reglan Inj) 5 mg Q8HR IV PUSH 01/26/17 14:00 01/28/17 15:07 ([place] 5-325 Mg) 1 tab Q6H PRN PO 01/27/17 09:15 01/28/17 02:57 (Tylenol) 500 mg Q4H PRN PO 01/27/17 09:15 (Lopressor) 75 mg Q8HR PO 01/27/17 14:00 01/28/17 15:07 Vital Signs / I&O Vital Signs Date Time Temp Pulse Resp B/P (MAP) Pulse Ox O2 Delivery O2 Flow Rate FiO2 01/28/17 12:00 97.4 122 19 152/83 (106) 95 01/28/17 08:20 95 Room Air 01/28/17 08:10 121 01/28/17 07:59 98.4 106 18 125/64 (84) 95 01/28/17 04:00 94 01/28/17 04:00 96.2 115 18 128/69 (88) 93 01/28/17 00:45 95.7 113 18 120/55 (76) 91 01/27/17 20:00 110 01/27/17 20:00 97.5 111 18 96/55 (69) 90 01/27/17 19:00 Room Air 01/27/17 18:00 95 01/27/17 17:00 97 01/27/17 16:00 111 01/27/17 16:00 98.4 111 20 133/71 (91) 94 I/O 01/27/17 01/27/17 01/27/17 01/28/17 01/28/17 01/28/17 06:59 14:59 22:59 06:59 14:59 22:59 Intake Total 1740 ml 120 ml 120 ml Output Total 1100 ml 1050 ml 900 ml Balance 640 ml -1050 ml -780 ml 120 ml Intake Oral 240 ml 120 ml 120 ml IV Total 1500 ml Output Urine Total 500 ml 300 ml Gastric Drainage Total 600 ml 1050 ml 600 ml # Bowel Movements 0 Physical Exam GENERAL: NAD, emotional SKIN: Warm and dry. HEAD: Atraumatic. Normocephalic. EYES: Pupils equal and round. No scleral icterus. No injection or drainage. ENT: No nasal bleeding or discharge. Mucous membranes pink and moist. NGT in place NECK: Trachea midline. No JVD. CARDIOVASCULAR: Regular but tachycardic RESPIRATORY: No accessory muscle use. Clear to auscultation. Breath sounds equal bilaterally. GASTROINTESTINAL: Abdomen soft, non-tender, nondistended. Hepatic and splenic margins not palpable. MUSCULOSKELETAL: Extremities without clubbing, cyanosis, or edema. No obvious deformities. NEUROLOGICAL: Awake and alert. No obvious cranial nerve deficits. Motor grossly within normal limits. Five out of 5 muscle strength in the arms and legs. Normal speech. PSYCHIATRIC: Appropriate mood and affect; insight and judgment normal. Assessment and Plan Problem List: (1) Atrial fibrillation with RVR ICD Codes: I48.91 - Unspecified atrial fibrillation (2) Small bowel obstruction ICD Codes: K56.609 - Unspecified intestinal obstruction, unspecified as to partial versus complete obstruction Status: Acute (3) Intra-abdominal adhesions ICD Codes: K66.0 - Peritoneal adhesions (postprocedural) (postinfection) Assessment and Plan 1) Afib with RVR Possibly due to being off BB and overall illness/increased sympathetics 2) Now in sinus tachycardia Treat underlying illness Con't BB 3) SBO per surgery 4) Con't Eliquis 5) Outpatient follow up for ischemic evaluation Robert Millard DO Jan 28, 2017 16:01
[2017-01-28] MEDS: MORPHINE SULFATE 4 MG/ML INJ IV PUSH PRN ×2 (18:02→21:07)
--- NOTE | 2017-01-28 19:55 | RADRPT ---
EXAM DATE/TIME: 01/28/2017 13:37 [facility] COMPARISON: No previous studies available for comparison. INDICATIONS : Obstruction, nausea and abdominal pain. FLUORO TIME: 0 minutes IMAGE COUNT: 11 CONTRAST: [place] IMAGING TIME(S): 15 min, 30 min, 45 min, 1 hr, 2 hr, 4 hrs MEDICAL HISTORY : Hypertension. Gastroesophageal reflux disease. SURGICAL HISTORY : Hysterectomy. ENCOUNTER: Initial ACUITY: 1 week PAIN SCORE: 5/10 LOCATION: Bilateral abdomen. FINDINGS: Preliminary film is unremarkable. The stomach is grossly unremarkable. Examination of the small bowel demonstrates normal mucosal pattern involving the jejunum and ileum. There is no evidence of mass or obstruction. No intraluminal filling defects are identified. Small bowel transit time is normal at 4-6 hours. Terminal small bowel appears normal CONCLUSION: Negative examination with no evidence of dilated small bowel obstruction. Juan M Bettencourt MD on January 28, 2017 at 19:52 Board Certified Radiologist. This report was verified electronically.
[2017-01-28] MEDS ORDERED: SIMETHICONE 80 MG CHEWABLE TAB CHEW PRN (21:15)
[2017-01-28] MEDS ORDERED: BISACODYL 10 MG SUPP RECTAL PRN (21:15)
[2017-01-28] MEDS: ACETAMINOPHEN 1000 MG/100 ML 100 ML IV SCH (21:28)
[2017-01-29] VITALS (7 sets, daily range): BP systolic 94–118; BP diastolic 56–70; PULSE 76–93; RESP 16–22; TEMP 95.5–98.2; O2SAT 93–94
[2017-01-29] MEDS: ACETAMINOPHEN/HYDROcodone 325 MG/5 MG TAB PO PRN (02:26)
[2017-01-29] MEDS: D5-NS + KCL 20 MEQ INJ 1,000 ML IV SCH ×3 (02:27→21:59)
[2017-01-29] MEDS: ONDANSETRON HCL 4 MG/2 ML VIAL IV PUSH PRN (02:27)
[2017-01-29] MEDS: ACETAMINOPHEN 1000 MG/100 ML 100 ML IV SCH ×4 (04:01→21:50)
[2017-01-29] MEDS: METOPROLOL TARTRATE 50 MG TAB PO SCH ×2 (06:00→14:00)
[2017-01-29] MEDS: METOCLOPRAMIDE HCL 10 MG/2 ML VIAL IV PUSH SCH ×3 (06:29→21:50)
[2017-01-29 08:31] LABS: AUTOMATED NEUTROPHIL # 4.6 TH/MM3 (1.8-7.7); BASOPHIL % 0.6 % (0.0-2.0); EOSINOPHIL # 0.2 TH/MM3 (0-0.4); EOSINOPHIL % 2.9 % (0.0-4.0); HEMATOCRIT 36.7 % (35.0-46.0); HEMO FLAGS DIFF FINAL; LYMPH % 21.1 % (9.0-44.0); LYMPHOCYTE # 1.5 TH/MM3 (1.0-4.8); MEAN CELL VOLUME 89.1 FL (80.0-100.0); MEAN CORPUSCULAR HEMOGLOBIN 30.4 PG (27.0-34.0); MEAN CORPUSCULAR HGB CONC 34.1 % (32.0-36.0); MONO % 9.3 % (0.0-8.0); NEUT % 66.1 % (16.0-70.0); PLATELET COUNT 261 TH/MM3 (150-450); RED BLOOD COUNT 4.12 MIL/MM3 (4.00-5.30); RED CELL DISTRIBUTION WIDTH 12.3 % (11.6-17.2); WHITE BLOOD COUNT 6.9 TH/MM3 (4.0-11.0)
[2017-01-29] MEDS: DOCUSATE SODIUM 100 MG CAP PO SCH ×2 (09:00→19:55)
[2017-01-29] MEDS: LISINOPRIL 20 MG TAB PO SCH (09:00)
[2017-01-29 09:01] LABS: BICARBONATE 26.9 MEQ/L (21.0-32.0); MAGNESIUM 2.1 MG/DL (1.5-2.5); POTASSIUM 3.5 MEQ/L (3.5-5.1)
[2017-01-29] MEDS: LORazepam 2 MG/ML VIAL IV PUSH PRN (09:31)
[2017-01-29] MEDS: PANTOPRAZOLE SOD 40 MG DELAYED RELEASE TAB PO SCH (09:56)
[2017-01-29] MEDS: APIXABAN 5 MG TABLET PO SCH ×2 (09:56→19:55)
[2017-01-29] MEDS: PRAVASTATIN SOD 40 MG TAB PO SCH (09:56)
[2017-01-29] MEDS ORDERED: SODIUM CHLORID 0.9% 500 ML INJ 500 ML IV ONE (13:15)
--- NOTE | 2017-01-29 17:02 | HHI.PR ---
cc: India Owens MD Subjective Subjective Notes DAILY PROGRESS NOTE FOR SURGICAL ATTENDING, DR. INDIA OWENS Had a fair amount of bowel activity last night and today Feels much better Objective Vitals/I&O Vital Signs Date Time Temp Pulse Resp B/P (MAP) Pulse Ox O2 Delivery O2 Flow Rate FiO2 01/29/17 15:29 95.5 93 16 99/58 (38) 93 01/28/17 18:21 21 01/28/17 08:20 Room Air 01/27/17 08:00 2.00 Labs Laboratory Tests Test 01/29/17 07:04 White Blood Count 6.9 Red Blood Count 4.12 Hemoglobin 12.5 Hematocrit 36.7 Mean Corpuscular Volume 89.1 Mean Corpuscular Hemoglobin 30.4 Mean Corpuscular Hemoglobin Concent 34.1 Red Cell Distribution Width 12.3 Platelet Count 261 Mean Platelet Volume 8.2 Neutrophils (%) (Auto) 66.1 Lymphocytes (%) (Auto) 21.1 Monocytes (%) (Auto) 9.3 Eosinophils (%) (Auto) 2.9 Basophils (%) (Auto) 0.6 Neutrophils # (Auto) 4.6 Lymphocytes # (Auto) 1.5 Monocytes # (Auto) 0.6 Eosinophils # (Auto) 0.2 Basophils # (Auto) 0.0 CBC Comment DIFF FINAL Differential Comment Blood Urea Nitrogen 20 Creatinine 0.69 Random Glucose 115 Calcium Level 9.5 Magnesium Level 2.1 Sodium Level 143 Potassium Level 3.5 Chloride Level 109 Carbon Dioxide Level 26.9 Anion Gap 7 Estimat Glomerular Filtration Rate 84 Radiology Last 72 hours Impressions Small Bowel X-Ray 01/28/17 0000 Signed Impressions: Service Date/Time: Saturday, January 28, 2017 13:37 - CONCLUSION: Negative examination with no evidence of dilated small bowel obstruction. Juan M Bettencourt MD Abdomen X-Ray 01/26/17 0000 Signed Impressions: Service Date/Time: Thursday, January 26, 2017 14:49 - CONCLUSION: 1. Abnormal exam demonstrating dilating thickened loops of small bowel in the midabdomen with air-fluid levels. This would raise concern for bowel obstruction. Higinio Kearney MD Abdomen: Non-distended, Non-tender Extremities: Perfused Narrative Exam NGT in place Minimal output Family amount of bowel activity A/P Problem List: (1) Status post laparoscopic procedure ICD Codes: Z98.890 - Other specified postprocedural states Status: Acute Permanent Comment: Lysis of adhesions Last Edited By: India Owens on Jan 13:59 (2) Small bowel obstruction ICD Codes: K56.609 - Unspecified intestinal obstruction, unspecified as to partial versus complete obstruction Status: Acute (3) Intra-abdominal adhesions ICD Codes: K66.0 - Peritoneal adhesions (postprocedural) (postinfection) (4) Abnormal CT of the abdomen ICD Codes: R93.5 - Abnormal findings on diagnostic imaging of other abdominal regions, including retroperitoneum (5) History of hysterectomy ICD Codes: Z90.710 - Acquired absence of both cervix and uterus Assessment and Plan 71-year-old female status post diagnostic laparoscopy lysis of adhesions with a prolonged ileus appears to have recovered and resolve the ileus. Plan the NG tube out today slowly advance diet pain control improved Discussed with the daughter by phone Attending Statement NOTE FOR SURGICAL ATTENDING, DR. INDIA OWENS I attest that I had a [id number] encounter with the patient on the same day, and personally performed and documented my assessment and findings in the medical record. The following services were provided during this hospital visit: Chart data review, vital sign assessments/reviewing monitor data Review of consultations notes if present. Medication orders/review and/or management Ordering and/or reviewing lab tests Ordering and/or interpreting/reviewing x-rays and/or diagnostic studies Care of the patient and discussion of the patient with the care team Documentation time To help prompt me to consider important information that might be impacting today's encounter and assessment, information from prior notes written by myself or my colleagues may have been "brought forward/copy and pasted" into today's note. India Owens MD Jan 29, 2017 17:02
--- NOTE | 2017-01-29 17:54 | HHI.PR ---
Subjective Remarks Late entry . Seen earlier today, family at bedside. Patient say she feels much better. No tachycardia, converted to NSR . Says she has multiple BMs yesterday. No fever or chills. Less nausea, no vomiting. BP into a lower side, will give bolus of 500 cc Objective Vitals Vital Signs Date Time Temp Pulse Resp B/P (MAP) Pulse Ox O2 Delivery O2 Flow Rate FiO2 01/29/17 15:29 95.5 93 16 99/58 (72) 93 01/29/17 09:30 98.2 82 18 94/64 (74) 93 106/70 (82) 01/29/17 06:27 110/70 (83) 01/29/17 04:00 96.3 86 17 118/70 (86) 94 01/29/17 00:00 97.0 90 16 103/65 (78) 93 01/28/17 21:12 18 01/28/17 20:00 89 01/28/17 20:00 96.5 91 18 100/60 (73) 93 01/28/17 18:21 95 21 I/O 01/28/17 01/28/17 01/28/17 01/29/17 01/29/17 01/29/17 07:00 15:00 23:00 07:00 15:00 23:00 Intake Total 120 ml 1060 ml 2171 ml 100 ml 1120 ml Output Total 1650 ml 1700 ml 650 ml Balance 120 ml -590 ml 471 ml 100 ml 470 ml Intake Oral 120 ml 960 ml 600 ml IV Total 100 ml 1571 ml 100 ml 1120 ml Output Urine Total 750 ml Gastric Drainage Total 900 ml 1700 ml 650 ml # Voids 2 # Bowel Movements 0 2 Result Diagram: 01/29/1704 01/29/17 0704 Imaging Last Impressions Small Bowel X-Ray 01/28/17 0000 Signed Impressions: Service Date/Time: Saturday, January 28, 2017 13:37 - CONCLUSION: Negative examination with no evidence of dilated small bowel obstruction. Juan M Bettencourt MD Abdomen X-Ray 01/26/17 0000 Signed Impressions: Service Date/Time: Thursday, January 26, 2017 14:49 - CONCLUSION: 1. Abnormal exam demonstrating dilating thickened loops of small bowel in the midabdomen with air-fluid levels. This would raise concern for bowel obstruction. Higinio Kearney MD CT Angiography 01/25/17 0000 Signed Impressions: Service Date/Time: Wednesday, January 25, 2017 12:36 - CONCLUSION: 1. No evidence of pulmonary embolism. 2. Minimal bibasilar atelectasis. No acute pulmonary infiltrates. Michel Adkins MD Chest X-Ray 01/24/17 0000 Signed Impressions: Service Date/Time: Tuesday, January 24, 2017 11:06 - CONCLUSION: No acute disease. No significant change has occurred. Michel Adkins MD Abdomen/Pelvis CT 01/22/17 0321 Signed Impressions: Service Date/Time: January 05:05 - CONCLUSION: Small bowel obstruction with transition point in the left lower quadrant Stiven Heredia MD Objective Remarks GENERAL: Alert, oriented 3, NAD. CARDIOVASCULAR: Regular, tachycardic without murmurs, gallops, or rubs. RESPIRATORY: Breath sounds equal bilaterally. No accessory muscle use. GASTROINTESTINAL: Abdomen soft, non-tender, nondistended. NG tube in place. MUSCULOSKELETAL: No cyanosis, or edema. BACK: Nontender without obvious deformity. No CVA tenderness. Procedures Echo 01/25/2017 Normal left ventricular size. Wall thickness is measured at the upper limits of normal. No regional wall motion abnormalities are present. The interatrial septum not well visualized. Mild mitral annular calcification. Trace mitral valve regurgitation. There is trace tricuspid valve regurgitation. The estimated pulmonary arterial pressure is 31mmHg. The pulmonary valve is not well visualized. 01/22/2017 PROCEDURE Diagnostic laparoscopy, lysis of adhesions. A/P Problem List: (1) Atrial fibrillation with RVR ICD Code: I48.91 - Unspecified atrial fibrillation (2) Small bowel obstruction ICD Code: K56.609 - Unspecified intestinal obstruction, unspecified as to partial versus complete obstruction Status: Acute Assessment and Plan Ms. Velásquez is a 71 year old female with a history of hypertension, hyperlipidemia , diverticulitis who was admitted to the hospital on 01/22/2017 due to abdominal pain and emesis. A CT abdomen and pelvis was obtained which shows a small bowel obstruction with a transition point in the left lower quadrant. General surgery was consulted. Patient underwent dx laparascopy, lysis of adhesions on 01/22/2017. During this admission, she also developed Afib with RVR for which Cardiology was consulted. - Small bowel obstruction secondary to adhesions - CT scan indicated SBO. - Status post laparoscopic surgery with lysis of adhesions on 01/22/2017. - NG tube replaced on 01/24/2017. - Continue with IV fluids. Advance diet per surgeon - Currently on liquid diet. Encourage ambulation. - NGT removed 01/29 - New onset atrial fibrillation with RVR. Currently on NSR, HR in 70s - TSH 0.701. - Signal Tester following. - Increase metoprolol from 75mg BID to 75mg Q8hrs. If no improvement plan to load with digoxin per cardio Dr Chan. - Advised to avoid Cardizem since that can decrease bowel movement. - Since heart rate continues be uncontrolled will increase metoprolol to 75 mg by mouth twice a day. - CHADSVASC score 3 (age, gender, and HTN). Patient on Eliquis. she is aware of the risks, benefits, side effects of medication. - Continue with telemetry. - Hypertensive urgency - Currently normotensive. Continue lisinopril 20 mg daily. Clonidine when necessary. - Dyspnea, subjective. Resolved. - Clinically patient is showing no signs of shortness of breathing and is not hypoxic. Chest x-ray is also negative. - Most likely secondary to anxiety/panic attack. Patient on Ativan when necessary. Hyperlipidemia GERD - Continue pravastatin 40 mg daily and pantoprazole 40 mg by mouth daily Full code. Apixaban 5mg BID. Discussed with the patient, nurse, Dr Chan cardio, Dr Thomas gen surg DC plan: Improving, NGT removed, diet advanced per surgeon, poss DC tomorrow if improved. Anna Barnhart MD Jan 29, 2017 17:54
[2017-01-29] MEDS ORDERED: METO-309 PO (17:59)
[2017-01-29] MEDS ORDERED: NORC5TAB PO (17:59)
[2017-01-29] MEDS ORDERED: LORA-474 PO (17:59)
[2017-01-29] MEDS ORDERED: APIX5TAB PO (17:59)
--- NOTE | 2017-01-29 18:00 | HHI.DS ---
Discharge Summary Admission Date Jan 22, 2017 at 06:04 Discharge Date: Jan 29, 2017 Admitting Diagnosis Small bowel obstruction (1) Atrial fibrillation with RVR ICD Code: I48.91 - Unspecified atrial fibrillation (2) Small bowel obstruction ICD Code: K56.609 - Unspecified intestinal obstruction, unspecified as to partial versus complete obstruction Status: Acute Procedures Echo 01/25/2017 Normal left ventricular size. Wall thickness is measured at the upper limits of normal. No regional wall motion abnormalities are present. The interatrial septum not well visualized. Mild mitral annular calcification. Trace mitral valve regurgitation. There is trace tricuspid valve regurgitation. The estimated pulmonary arterial pressure is 31mmHg. The pulmonary valve is not well visualized. 01/22/2017 PROCEDURE Diagnostic laparoscopy, lysis of adhesions. Brief History - From Admission This is a 71-year-old female past medical history hypertension, lipidemia, GERD , history diverticulosis, history of hysterectomy who presented with abdominal pain and emesis. Patient stated that around 6 PM she had abdominal pain that occurred after food intake that worsened over the night. At that time she felt nauseated and then developed emesis at 5 AM. She stated that emesis was clear initially then was dark almost black. Patient states she was to the hospital because of the symptoms. In the emergency department hemaprompt was positive for blood. Denied any fevers/ chills. Denies any constipation or diarrhea. All other review of systems reviewed and negative. CBC/BMP: 01/29/17 0704 01/29/17 0704 Significant Findings Laboratory Tests Test 01/27/17 06:12 01/29/17 07:04 Creatinine 0.46 MG/DL (0.50-1.00) Random Glucose 127 MG/DL (74-106) 115 MG/DL (74-106) Monocytes (%) (Auto) 9.3 % (0.0-8.0) Blood Urea Nitrogen 20 MG/DL (7-18) Chloride Level 109 MEQ/L (98-107) Estimat Glomerular Filtration Rate 84 ML/MIN (>89) Imaging Last Impressions Small Bowel X-Ray 01/28/17 0000 Signed Impressions: Service Date/Time: Saturday, January 28, 2017 13:37 - CONCLUSION: Negative examination with no evidence of dilated small bowel obstruction. Juan M Bettencourt MD Abdomen X-Ray 01/26/17 0000 Signed Impressions: Service Date/Time: Thursday, January 26, 2017 14:49 - CONCLUSION: 1. Abnormal exam demonstrating dilating thickened loops of small bowel in the midabdomen with air-fluid levels. This would raise concern for bowel obstruction. Higinio Kearney MD CT Angiography 01/25/17 0000 Signed Impressions: Service Date/Time: Wednesday, January 25, 2017 12:36 - CONCLUSION: 1. No evidence of pulmonary embolism. 2. Minimal bibasilar atelectasis. No acute pulmonary infiltrates. Michel Adkins MD Chest X-Ray 01/24/17 0000 Signed Impressions: Service Date/Time: Tuesday, January 24, 2017 11:06 - CONCLUSION: No acute disease. No significant change has occurred. Michel Adkins MD Abdomen/Pelvis CT 01/22/17 0321 Signed Impressions: Service Date/Time: January 05:05 - CONCLUSION: Small bowel obstruction with transition point in the left lower quadrant Stiven Heredia MD PE at Discharge GENERAL: Alert, oriented 3, NAD. CARDIOVASCULAR: Regular, tachycardic without murmurs, gallops, or rubs. RESPIRATORY: Breath sounds equal bilaterally. No accessory muscle use. GASTROINTESTINAL: Abdomen soft, non-tender, nondistended. NG tube in place. MUSCULOSKELETAL: No cyanosis, or edema. BACK: Nontender without obvious deformity. No CVA tenderness. Pt update on day of discharge Feels much better. She is ambulating with a walker and with some help. Had a BM / No palpitations. No n/v/d/c. Denies chest pain or sob. Hospital Course Ms. Velásquez is a 71 year old female with a history of hypertension, hyperlipidemia , diverticulitis who was admitted to the hospital on 01/22/2017 due to abdominal pain and emesis. A CT abdomen and pelvis was obtained which shows a small bowel obstruction with a transition point in the left lower quadrant. General surgery was consulted. Patient underwent dx laparascopy, lysis of adhesions on 01/22/2017. During this admission, she also developed Afib with RVR for which Cardiology was consulted. Patient had a normal EF on ECHO. Metoprolol was increased , patient noted with NSR and rate controlled. Patient improved she was discharged home in stable condition to f/u as OP with PCP and consultants. - Small bowel obstruction secondary to adhesions - CT scan indicated SBO. - Status post laparoscopic surgery with lysis of adhesions on 01/22/2017. - NG tube replaced on 01/24/2017. - Continue with IV fluids. Advance diet per surgeon - Diet was advanced per surgeon. Encourage ambulation. - NGT removed 01/29 - New onset atrial fibrillation with RVR. Currently on NSR, HR in 70s - TSH 0.701. - Food And Drug Inspector following. - Increase metoprolol from 75mg BID to 75mg Q8hrs. If no improvement plan to load with digoxin per cardio Dr Chan. - Advised to avoid Cardizem since that can decrease bowel movement. - Since heart rate continues be uncontrolled will increase metoprolol to 75 mg by mouth twice a day. - CHADSVASC score 3 (age, gender, and HTN). Patient on Eliquis. she is aware of the risks, benefits, side effects of medication. - Continue with telemetry. - Hypertensive urgency - Currently normotensive. Continue lisinopril 20 mg daily. Clonidine when necessary. - Dyspnea, subjective. Resolved. - Clinically patient is showing no signs of shortness of breathing and is not hypoxic. Chest x-ray is also negative. - Most likely secondary to anxiety/panic attack. Patient on Ativan when necessary. Hyperlipidemia GERD - Continue pravastatin 40 mg daily and pantoprazole 40 mg by mouth daily Full code. Apixaban 5mg BID. Discussed with the patient, nurse, Dr Chan cardio, Dr Thomas gen surg DC plan: Improving, NGT removed, diet advanced per surgeon, poss DC tomorrow if improved. Pt Condition on Discharge: Stable Discharge Disposition: Disch w/ Home Health Serv Discharge Time: > 30 minutes Discharge Instructions DIET: Follow Instructions for: As Tolerated, No Restrictions Activities you can perform: Regular-No Restrictions Follow up Referrals: Cardiology - 1 Week PCP Follow-up - 2-3 Days Surgical - 1 Week with Ed Thomas MD New Medications: Hydrocodone-Acetaminophen (Conrad) 5-325 mg Tab 1 TAB PO Q6H PRN for PAIN, #20 TAB 0 Refills Lorazepam (Ativan) 1 Mg Tab 1 MG PO Q8H PRN for ANXIETY AND/OR AGITATION, #10 TAB 0 Refills Apixaban (Eliquis) 5 Mg Tab 5 MG PO BID for Blood Clot Prevention, #120 TAB Metoprolol Tartrate (Lopressor) 50 Mg Tab 75 MG PO Q8HR for a fib , #90 TAB Continued Medications: Lansoprazole (Lansoprazole) 30 Mg Capdr 30 MG PO DAILY, CAP 0 Refills Lisinopril (Lisinopril) 20 Mg Tab 20 MG PO DAILY, #30 TAB 0 Refills Simvastatin (Simvastatin) 20 Mg Tab 20 MG PO DAILY for Cholesterol Management, #30 TAB 0 Refills Discontinued Medications: Metoprolol Tartrate (Metoprolol Tartrate) 25 Mg Tab 25 MG PO BID, #60 TAB 0 Refills Anna Barnhart MD Jan 29, 2017 18:00
--- NOTE | 2017-01-29 18:21 | PD.CARD.PN ---
Subjective Subjective Remarks Patient was seen earlier today Telemetry showing normal sinus rhythm Objective Medications Current Medications Medications (Trade) Dose Ordered Sig/Jinny Route Start Time Stop Time Status Last Admin (NS Flush) 2 ml UNSCH PRN IV FLUSH 01/22/17 03:30 01/28/17 18:02 (Zofran Inj) 4 mg Q6HR PRN IV PUSH 01/22/17 12:30 01/29/17 02:27 (Morphine Inj) 4 mg Q3H PRN IV PUSH 01/22/17 12:30 01/28/17 21:07 Potassium Chloride/Dextrose/ Sod Cl 1,000 ml @ 100 mls/hr Q10H IV 01/22/17 15:43 01/29/17 16:07 (Chapstick) 1 applic UNSCH PRN TOPICAL 01/23/17 00:00 01/23/17 01:38 (Chloraseptic Stella) 1 lozenge UNSCH PRN BUCCAL 01/23/17 09:15 01/25/17 08:21 (Prinivil) 20 mg DAILY PO 01/23/17 10:30 01/28/17 08:22 (Pravachol) 40 mg DAILY PO 01/23/17 11:00 01/29/17 09:56 (Protonix) 40 mg DAILY PO 01/23/17 13:00 01/29/17 09:56 (Chloraseptic [place]) 2 spray Q2H PRN OROPHARYNG 01/23/17 14:00 (Catapres) 0.1 mg Q6H PRN PO 01/24/17 10:30 (Apresoline Inj) 20 mg Q4H PRN IV PUSH 01/24/17 11:15 01/25/17 11:48 (Trandate Inj) 10 mg Q4H PRN IV PUSH 01/24/17 12:45 01/24/17 18:28 (Cepacol Extra Stella (Sugar Free)) 1 lozenge Q2HR PRN BUCCAL 01/24/17 16:00 01/28/17 10:21 (Ativan Inj) 1 mg Q6H PRN IV PUSH 01/25/17 10:00 01/29/17 09:31 (Eliquis) 5 mg BID PO 01/25/17 21:00 01/29/17 09:56 (Colace) 100 mg BID PO 01/26/17 12:00 01/28/17 21:06 (Pill Splitter) 1 ea UNSCH PRN OTHER 01/26/17 12:00 (Reglan Inj) 5 mg Q8HR IV PUSH 01/26/17 14:00 01/29/17 15:12 ([place] 5-325 Mg) 1 tab Q6H PRN PO 01/27/17 09:15 01/29/17 02:26 (Tylenol) 500 mg Q4H PRN PO 01/27/17 09:15 (Lopressor) 75 mg Q8HR PO 01/27/17 14:00 01/28/17 15:07 Acetaminophen 100 ml @ 400 mls/hr Q6H IV 01/28/17 22:00 01/29/17 16:07 (Dulcolax Supp) 10 mg DAILY PRN RECTAL 01/28/17 21:15 01/28/17 21:27 (Mylicon Chew) 80 mg PCHS PRN CHEW 01/28/17 21:15 01/28/17 21:27 Vital Signs / I&O Vital Signs Date Time Temp Pulse Resp B/P (MAP) Pulse Ox O2 Delivery O2 Flow Rate FiO2 01/29/17 15:29 95.5 93 16 99/58 (72) 93 01/29/17 09:30 98.2 82 18 94/64 (74) 93 106/70 (82) 01/29/17 06:27 110/70 (83) 01/29/17 04:00 96.3 86 17 118/70 (86) 94 01/29/17 00:00 97.0 90 16 103/65 (78) 93 01/28/17 21:12 18 01/28/17 20:00 89 01/28/17 20:00 96.5 91 18 100/60 (73) 93 01/28/17 18:21 95 21 I/O 01/28/17 01/28/17 01/28/17 01/29/17 01/29/17 01/29/17 06:59 14:59 22:59 06:59 14:59 22:59 Intake Total 120 ml 1060 ml 2171 ml 100 ml 1360 ml Output Total 1650 ml 1700 ml 1250 ml Balance 120 ml -590 ml 471 ml 100 ml 110 ml Intake Oral 120 ml 960 ml 600 ml 240 ml IV Total 100 ml 1571 ml 100 ml 1120 ml Output Urine Total 750 ml 600 ml Gastric Drainage Total 900 ml 1700 ml 650 ml # Voids 2 # Bowel Movements 0 2 3 Physical Exam GENERAL: NAD SKIN: Warm and dry. HEAD: Atraumatic. Normocephalic. EYES: Pupils equal and round. No scleral icterus. No injection or drainage. ENT: No nasal bleeding or discharge. Mucous membranes pink and moist. NGT in place NECK: Trachea midline. No JVD. CARDIOVASCULAR: Regular rate and rhythm RESPIRATORY: No accessory muscle use. Clear to auscultation. Breath sounds equal bilaterally. GASTROINTESTINAL: Abdomen soft, non-tender, nondistended. Hepatic and splenic margins not palpable. MUSCULOSKELETAL: Extremities without clubbing, cyanosis, or edema. No obvious deformities. NEUROLOGICAL: Awake and alert. No obvious cranial nerve deficits. Motor grossly within normal limits. Five out of 5 muscle strength in the arms and legs. Normal speech. PSYCHIATRIC: Appropriate mood and affect; insight and judgment normal. Laboratory Laboratory Tests Test 01/29/17 07:04 White Blood Count 6.9 TH/MM3 Red Blood Count 4.12 MIL/MM3 Hemoglobin 12.5 GM/DL Hematocrit 36.7 % Mean Corpuscular Volume 89.1 FL Mean Corpuscular Hemoglobin 30.4 PG Mean Corpuscular Hemoglobin Concent 34.1 % Red Cell Distribution Width 12.3 % Platelet Count 261 TH/MM3 Mean Platelet Volume 8.2 FL Neutrophils (%) (Auto) 66.1 % Lymphocytes (%) (Auto) 21.1 % Monocytes (%) (Auto) 9.3 % Eosinophils (%) (Auto) 2.9 % Basophils (%) (Auto) 0.6 % Neutrophils # (Auto) 4.6 TH/MM3 Lymphocytes # (Auto) 1.5 TH/MM3 Monocytes # (Auto) 0.6 TH/MM3 Eosinophils # (Auto) 0.2 TH/MM3 Basophils # (Auto) 0.0 TH/MM3 CBC Comment DIFF FINAL Differential Comment Blood Urea Nitrogen 20 MG/DL Creatinine 0.69 MG/DL Random Glucose 115 MG/DL Calcium Level 9.5 MG/DL Magnesium Level 2.1 MG/DL Sodium Level 143 MEQ/L Potassium Level 3.5 MEQ/L Chloride Level 109 MEQ/L Carbon Dioxide Level 26.9 MEQ/L Anion Gap 7 MEQ/L Estimat Glomerular Filtration Rate 84 ML/MIN Assessment and Plan Problem List: (1) Atrial fibrillation with RVR ICD Codes: I48.91 - Unspecified atrial fibrillation (2) Small bowel obstruction ICD Codes: K56.609 - Unspecified intestinal obstruction, unspecified as to partial versus complete obstruction Status: Acute (3) Intra-abdominal adhesions ICD Codes: K66.0 - Peritoneal adhesions (postprocedural) (postinfection) Assessment and Plan 1) Afib with RVR Possibly due to being off BB and overall illness/increased sympathetics 2) Now normal sinus rhythm Con't BB 3) SBO per surgery 4) Con't Eliquis 5) Outpatient follow up for ischemic evaluation 6) Mild hypotension, will back down on BB Robert Millard DO Jan 29, 2017 18:21
[2017-01-29] MEDS: METOPROLOL TARTRATE 25 MG TAB PO SCH (19:53)
[2017-01-30 00:11] VITALS: BP 144/62; PULSE 95; RESP 20; TEMP 98.4; O2SAT 96
[2017-01-30] MEDS: ONDANSETRON HCL 4 MG/2 ML VIAL IV PUSH PRN (02:11)
[2017-01-30] MEDS: D5-NS + KCL 20 MEQ INJ 1,000 ML IV SCH (03:14)
[2017-01-30 03:59] VITALS: BP 117/54; PULSE 74; RESP 20; TEMP 97.4
[2017-01-30] MEDS: ACETAMINOPHEN 1000 MG/100 ML 100 ML IV SCH ×3 (04:12→15:35)
[2017-01-30] MEDS: METOCLOPRAMIDE HCL 10 MG/2 ML VIAL IV PUSH SCH ×2 (05:41→14:00)
[2017-01-30 08:00] VITALS: BP 116/66; PULSE 81; RESP 18; TEMP 96.6; O2SAT 93
[2017-01-30] MEDS: DOCUSATE SODIUM 100 MG CAP PO SCH (09:00)
[2017-01-30] MEDS: LISINOPRIL 20 MG TAB PO SCH (09:00)
[2017-01-30] MEDS: PANTOPRAZOLE SOD 40 MG DELAYED RELEASE TAB PO SCH (10:24)
[2017-01-30] MEDS: PRAVASTATIN SOD 40 MG TAB PO SCH (10:24)
[2017-01-30] MEDS: APIXABAN 5 MG TABLET PO SCH (10:24)
[2017-01-30] MEDS: METOPROLOL TARTRATE 25 MG TAB PO SCH (10:26)
--- NOTE | 2017-01-30 11:03 | HHI.PR ---
cc: Ed Thomas MD Subjective Subjective Notes DAILY PROGRESS NOTE FOR SURGICAL ATTENDING, DR. ED THOMAS Patient up walking the halls with the Tolerating diet Good bowel activity Feels comfortable Objective Vitals/I&O Vital Signs Date Time Temp Pulse Resp B/P (MAP) Pulse Ox O2 Delivery O2 Flow Rate FiO2 01/30/17 03:59 97.4 74 20 117/54 (75) 01/30/17 00:11 96 01/28/17 18:21 21 01/28/17 08:20 Room Air 01/27/17 08:00 2.00 Labs Laboratory Tests Test 01/22/17 03:37 01/25/17 15:39 01/29/17 07:04 Prothrombin Time 10.1 SEC Prothromb Time International Ratio 0.9 RATIO Activated Partial Thromboplast Time 24.3 SEC Protein Corrected Calcium 10.7 MG/DL Blood Urea Nitrogen 18 MG/DL 20 MG/DL Creatinine 0.78 MG/DL 0.69 MG/DL Random Glucose 150 MG/DL 115 MG/DL Total Protein 8.5 GM/DL Albumin 4.8 GM/DL Calcium Level 11.6 MG/DL 9.5 MG/DL Alkaline Phosphatase 99 U/L Aspartate Amino Transf (AST/SGOT) 13 U/L Alanine Aminotransferase (ALT/SGPT) 25 U/L Total Bilirubin 0.5 MG/DL Sodium Level 136 MEQ/L 143 MEQ/L Potassium Level 3.4 MEQ/L 3.5 MEQ/L Chloride Level 100 MEQ/L 109 MEQ/L Carbon Dioxide Level 26.7 MEQ/L 26.9 MEQ/L Lipase 150 U/L Troponin I LESS THAN 0.02 NG/ML Free Thyroxine 1.54 NG/DL Thyroid Stimulating Hormone 3rd Gen 0.701 uIU/ML White Blood Count 6.9 TH/MM3 Red Blood Count 4.12 MIL/MM3 Hemoglobin 12.5 GM/DL Hematocrit 36.7 % Mean Corpuscular Volume 89.1 FL Mean Corpuscular Hemoglobin 30.4 PG Mean Corpuscular Hemoglobin Concent 34.1 % Red Cell Distribution Width 12.3 % Platelet Count 261 TH/MM3 Mean Platelet Volume 8.2 FL Neutrophils (%) (Auto) 66.1 % Lymphocytes (%) (Auto) 21.1 % Monocytes (%) (Auto) 9.3 % Eosinophils (%) (Auto) 2.9 % Basophils (%) (Auto) 0.6 % Neutrophils # (Auto) 4.6 TH/MM3 Lymphocytes # (Auto) 1.5 TH/MM3 Monocytes # (Auto) 0.6 TH/MM3 Eosinophils # (Auto) 0.2 TH/MM3 Basophils # (Auto) 0.0 TH/MM3 CBC Comment DIFF FINAL Differential Comment Magnesium Level 2.1 MG/DL Anion Gap 7 MEQ/L Estimat Glomerular Filtration Rate 84 ML/MIN Radiology Last 72 hours Impressions Small Bowel X-Ray 01/28/17 0000 Signed Impressions: Service Date/Time: Saturday, January 28, 2017 13:37 - CONCLUSION: Negative examination with no evidence of dilated small bowel obstruction. Juan M Bettencourt MD Abdomen X-Ray 01/26/17 0000 Signed Impressions: Service Date/Time: Thursday, January 26, 2017 14:49 - CONCLUSION: 1. Abnormal exam demonstrating dilating thickened loops of small bowel in the midabdomen with air-fluid levels. This would raise concern for bowel obstruction. Higinio Kearney MD Lungs: Clear Abdomen: Non-distended, Non-tender Extremities: Perfused Narrative Exam Walking the halls. A/P Problem List: (1) Status post laparoscopic procedure ICD Codes: Z98.890 - Other specified postprocedural states Status: Acute Permanent Comment: Lysis of adhesions Last Edited By: Ed Thomas on Jan 13:59 (2) Small bowel obstruction ICD Codes: K56.609 - Unspecified intestinal obstruction, unspecified as to partial versus complete obstruction Status: Acute (3) Intra-abdominal adhesions ICD Codes: K66.0 - Peritoneal adhesions (postprocedural) (postinfection) (4) Abnormal CT of the abdomen ICD Codes: R93.5 - Abnormal findings on diagnostic imaging of other abdominal regions, including retroperitoneum (5) History of hysterectomy ICD Codes: Z90.710 - Acquired absence of both cervix and uterus Assessment and Plan 71-year-old female status post diagnostic laparoscopy lysis of adhesions with a prolonged ileus appears to have recovered and resolve the ileus. Patient appears to have made a recovery Okay to DC today Discussed with Dr. Anna Barnhart MD at the bedside Follow-up my office 7-10 days Attending Statement NOTE FOR SURGICAL ATTENDING, DR. ED THOMAS I attest that I had a [id number] encounter with the patient on the same day, and personally performed and documented my assessment and findings in the medical record. The following services were provided during this hospital visit: Chart data review, vital sign assessments/reviewing monitor data Review of consultations notes if present. Medication orders/review and/or management Ordering and/or reviewing lab tests Ordering and/or interpreting/reviewing x-rays and/or diagnostic studies Care of the patient and discussion of the patient with the care team Documentation time To help prompt me to consider important information that might be impacting today's encounter and assessment, information from prior notes written by myself or my colleagues may have been "brought forward/copy and pasted" into today's note. Ed Thomas MD Jan 30, 2017 11:03
--- NOTE | 2017-01-30 11:17 | HHI.FF ---
Face to Face Verification Diagnosis: (1) Atrial fibrillation with RVR (2) Colitis (3) Small bowel obstruction (4) Intra-abdominal adhesions (5) Abnormal CT of the abdomen (6) Status post laparoscopic procedure (7) History of hysterectomy Physical Therapy Order: Evaluate and Treat Home Health Nursing Order: Medical education Signs/symptoms of disease process Medication education-adverse effect Nursing assessment with vital signs I have seen patient Rose Marie Velásquez on 01/30/17. My clinical findings support the need for the requested home health care services because: Ltd mobility - disease progression I certify that my clinical findings support that this patient is homebound because: Post-op weakness Anna Barnhart MD Jan 30, 2017 11:17
[2017-01-30 11:30] VITALS: BP 142/66; PULSE 85; RESP 22; TEMP 96.1; O2SAT 93
[2017-01-30] MEDS ORDERED: SUCCINYLCHOLINE CHLORIDE 100 MG/5 ML SYRINGE IV PUSH ONE (12:00)
[2017-01-30] MEDS ORDERED: ePHEDrine/NS 25 MG/5 ML SYR IV ONE (12:00)
[2017-01-30] MEDS ORDERED: PHENYLEPH/NS 1000 MCG/10 ML SYR IV ONE (12:00)
[2017-01-30] MEDS ORDERED: PROPOFOL 200 MG/20 ML AMP IV ONE (12:00)
[2017-01-30] MEDS ORDERED: ROCURONIUM INJ 50 MG/5 ML SYRINGE IV PUSH ONE (12:00)
[2017-01-30] MEDS ORDERED: ONDANSETRON HCL 4 MG/2 ML VIAL IV PUSH ONE (12:00)
[2017-01-30] MEDS ORDERED: LIDOCAINE HCL 1% PF 5 ML AMPULE OTHER ONE (12:00)
[2017-01-30] MEDS ORDERED: DEXAMETHASONE SOD PHOS 4 MG/ML VIAL IV ONE (12:00)
[2017-01-30] MEDS ORDERED: MIDAZOLAM HCL 2 MG/2 ML VIAL IV ONE (12:00)
[2017-01-30] MEDS ORDERED: GLYCOPYRROLATE 1 MG/5 ML VIAL IV PUSH ONE (12:00)
[2017-01-30] MEDS ORDERED: NEOSTIGMINE 3 MG/3 ML SYR IV ONE (12:00)
[2017-01-30] MEDS ORDERED: MORPHINE SULFATE 4 MG/ML INJ IV ONE (12:00)
--- NOTE | 2017-01-30 13:30 | PD.CARD.PN ---
Subjective Subjective Remarks No events overnight Feels well, no palpitations/CP/SOB Telemetry showing normal sinus rhythm Objective Medications Current Medications Medications (Trade) Dose Ordered Sig/Jinny Route Start Time Stop Time Status Last Admin (NS Flush) 2 ml UNSCH PRN IV FLUSH 01/22/17 03:30 01/28/17 18:02 (Zofran Inj) 4 mg Q6HR PRN IV PUSH 01/22/17 12:30 01/30/17 02:11 (Morphine Inj) 4 mg Q3H PRN IV PUSH 01/22/17 12:30 01/28/17 21:07 Potassium Chloride/Dextrose/ Sod Cl 1,000 ml @ 100 mls/hr Q10H IV 01/22/17 15:43 01/30/17 03:14 (Chapstick) 1 applic UNSCH PRN TOPICAL 01/23/17 00:00 01/23/17 01:38 (Chloraseptic Stella) 1 lozenge UNSCH PRN BUCCAL 01/23/17 09:15 01/25/17 08:21 (Prinivil) 20 mg DAILY PO 01/23/17 10:30 01/28/17 08:22 (Pravachol) 40 mg DAILY PO 01/23/17 11:00 01/30/17 10:24 (Protonix) 40 mg DAILY PO 01/23/17 13:00 01/30/17 10:24 (Chloraseptic [place]) 2 spray Q2H PRN OROPHARYNG 01/23/17 14:00 (Catapres) 0.1 mg Q6H PRN PO 01/24/17 10:30 (Cepacol Extra Stella (Sugar Free)) 1 lozenge Q2HR PRN BUCCAL 01/24/17 16:00 01/28/17 10:21 (Ativan Inj) 1 mg Q6H PRN IV PUSH 01/25/17 10:00 01/29/17 09:31 (Eliquis) 5 mg BID PO 01/25/17 21:00 01/30/17 10:24 (Colace) 100 mg BID PO 01/26/17 12:00 01/29/17 19:55 (Pill Splitter) 1 ea UNSCH PRN OTHER 01/26/17 12:00 (Reglan Inj) 5 mg Q8HR IV PUSH 01/26/17 14:00 01/30/17 05:41 ([place] 5-325 Mg) 1 tab Q6H PRN PO 01/27/17 09:15 01/29/17 02:26 (Tylenol) 500 mg Q4H PRN PO 01/27/17 09:15 Acetaminophen 100 ml @ 400 mls/hr Q6H IV 01/28/17 22:00 01/30/17 10:41 (Dulcolax Supp) 10 mg DAILY PRN RECTAL 01/28/17 21:15 01/28/17 21:27 (Mylicon Chew) 80 mg PCHS PRN CHEW 01/28/17 21:15 01/28/17 21:27 (Lopressor) 75 mg BID PO 01/29/17 21:00 01/30/17 10:26 Vital Signs / I&O Vital Signs Date Time Temp Pulse Resp B/P (MAP) Pulse Ox O2 Delivery O2 Flow Rate FiO2 01/30/17 11:30 96.1 85 22 142/66 (91) 93 01/30/17 08:00 96.6 81 18 116/66 (83) 93 01/30/17 03:59 97.4 74 20 117/54 (75) 01/30/17 00:11 98.4 95 20 144/62 (89) 96 01/29/17 21:01 98.1 76 22 107/56 (73) 94 01/29/17 20:28 77 01/29/17 15:29 95.5 93 16 99/58 (72) 93 I/O 01/29/17 01/29/17 01/29/17 01/30/17 01/30/17 01/30/17 07:00 15:00 23:00 07:00 15:00 23:00 Intake Total 2171 ml 100 ml 1832 ml 1248 ml Output Total 1700 ml 1250 ml Balance 471 ml 100 ml 582 ml 1248 ml Intake Oral 600 ml 240 ml 420 ml IV Total 1571 ml 100 ml 1592 ml 828 ml Output Urine Total 600 ml Gastric Drainage Total 1700 ml 650 ml # Voids 2 6 # Bowel Movements 2 3 5 Physical Exam GENERAL: NAD SKIN: Warm and dry. HEAD: Atraumatic. Normocephalic. EYES: Pupils equal and round. No scleral icterus. No injection or drainage. ENT: No nasal bleeding or discharge. Mucous membranes pink and moist. NGT in place NECK: Trachea midline. No JVD. CARDIOVASCULAR: Regular rate and rhythm RESPIRATORY: No accessory muscle use. Clear to auscultation. Breath sounds equal bilaterally. GASTROINTESTINAL: Abdomen soft, non-tender, nondistended. Hepatic and splenic margins not palpable. MUSCULOSKELETAL: Extremities without clubbing, cyanosis, or edema. No obvious deformities. NEUROLOGICAL: Awake and alert. No obvious cranial nerve deficits. Motor grossly within normal limits. Five out of 5 muscle strength in the arms and legs. Normal speech. PSYCHIATRIC: Appropriate mood and affect; insight and judgment normal. Assessment and Plan Problem List: (1) Atrial fibrillation with RVR ICD Codes: I48.91 - Unspecified atrial fibrillation (2) Small bowel obstruction ICD Codes: K56.609 - Unspecified intestinal obstruction, unspecified as to partial versus complete obstruction Status: Acute (3) Intra-abdominal adhesions ICD Codes: K66.0 - Peritoneal adhesions (postprocedural) (postinfection) Assessment and Plan 1) Afib with RVR Possibly due to being off BB and overall illness/increased sympathetics 2) Now normal sinus rhythm Con't BB 3) SBO per surgery 4) Con't Eliquis 5) Outpatient follow up for ischemic evaluation She will plan to see Dr. Alberts or Dr. Carvalho, as sees Dr. Carvalho 6) Mild hypotension Resolved with decreasing BB 7) Cardiovascularly stable for discharge, will see PRN call with questions Robert Millard DO Jan 30, 2017 13:30
== END 2017-01-30 16:58 | disposition home health service (06) | DRG 337 ==
LOC: NEPC 02:39 → NEDA 06:04 → N06B 12:08 → HCIN 01-24 11:48 → N07B 01-27 20:14
PROVIDERS: ADMIT Hospitalist; ATTEND Hospitalist
PROC: 0DNW4ZZ Release Peritoneum, Percutaneous Endoscopic Approach (ICD-10-PCS; principal; 2017-01-22 14:13)
DX: K56.50 Intestinal adhesions [bands], unspecified as to partial versus complete obstruction (principal); I48.91 Unspecified atrial fibrillation; J44.9 Chronic obstructive pulmonary disease, unspecified; I10 Essential (primary) hypertension; K56.7 Ileus, unspecified; E78.5 Hyperlipidemia, unspecified; K21.9 Gastro-esophageal reflux disease without esophagitis; F17.210 Nicotine dependence, cigarettes, uncomplicated; K57.10 Diverticulosis of small intestine without perforation or abscess without bleeding; I45.10 Unspecified right bundle-branch block; I16.0 Hypertensive urgency; F41.0 Panic disorder [episodic paroxysmal anxiety]; Z79.82 Long term (current) use of aspirin
CPT/HCPCS: 71010; 71275; 74000; 74020; 74177; 74250; 76937; 80048; 80053; 83690; 83735; 84439; 84443; 84484; 85025; 85027; 85610; 85730; 86850; 86900; 86901; 93005; 93306; 94150; 96365; 96368; 96375; C9113; J0131; J0171; J0330; J0360; J0461; J0690; J1100; J1170; J2060; J2250; J2270; J2370; J2405; J2710; J2765; J3010; J3480; J7030; J7040; Q9963; Q9967

== ENCOUNTER → 2017-04-27 | Outpatient (CLI) | payer MEDICARE ==
[2017-04-27 09:53] LABS: AUTOMATED NEUTROPHIL # 2.8 TH/MM3 (1.8-7.7); BASOPHIL % 0.8 % (0.0-2.0); EOSINOPHIL # 0.1 TH/MM3 (0-0.4); EOSINOPHIL % 2.7 % (0.0-4.0); HEMATOCRIT 37.2 % (35.0-46.0); HEMO FLAGS DIFF FINAL; LYMPH % 33.4 % (9.0-44.0); LYMPHOCYTE # 1.7 TH/MM3 (1.0-4.8); MEAN CELL VOLUME 88.1 FL (80.0-100.0); MEAN CORPUSCULAR HEMOGLOBIN 30.9 PG (27.0-34.0); MEAN PLATELET VOLUME 8.1 FL (7.0-11.0); MONO % 7.2 % (0.0-8.0); MONOCYTE # 0.4 TH/MM3 (0-0.9); NEUT % 55.9 % (16.0-70.0); PLATELET COUNT 241 TH/MM3 (150-450); RED BLOOD COUNT 4.22 MIL/MM3 (4.00-5.30); RED CELL DISTRIBUTION WIDTH 12.8 % (11.6-17.2); WHITE BLOOD COUNT 5.1 TH/MM3 (4.0-11.0)
[2017-04-27 10:04] LABS: PROTHROMBIN TIME - PATIENT 9.9 SEC (9.8-11.6)
[2017-04-27 10:19] LABS: ANION GAP 6 MEQ/L (5-15); BICARBONATE 27.6 MEQ/L (21.0-32.0); BLOOD UREA NITROGEN 17 MG/DL (7-18); CALCIUM 10.2 MG/DL (8.5-10.1); CHLORIDE 107 MEQ/L (98-107); CREATININE 0.52 MG/DL (0.50-1.00); GLOMERULAR FILTRATION RATE 117 ML/MIN (>89); GLUCOSE,FASTING 105 MG/DL (74-99); POTASSIUM 4.3 MEQ/L (3.5-5.1); SODIUM (NA) 141 MEQ/L (136-145)
[2017-04-27 10:43] LABS: BILIRUBIN, URINE NEG (NEG); BLOOD, URINE NEG (NEG); GLUCOSE,URINE NEG (NEG); KETONE, URINE NEG (NEG); NITRITE,URINE NEG (NEG); PH, URINE 6.5 (5.0-8.5); URINE COLOR COLORLESS (YELLW/STRAW); URINE LEUKOCYTE ESTERASE NEG (NEG)
[2017-04-27 10:44] LABS: COMMENT (UR) CATH-CULT NOT IND; CULTURE IF INDICATED CATH CULTURE NOT IND
== END ==
LOC: CPRE 08:53
DX: Z01.812 Encounter for preprocedural laboratory examination (principal); Z01.811 Encounter for preprocedural respiratory examination; I48.91 Unspecified atrial fibrillation; I10 Essential (primary) hypertension
CPT/HCPCS: 36415; 71046; 80048; 81001; 85025; 85610

== ENCOUNTER 2017-05-13 10:00 | Inpatient (IN) | payer MEDICARE ==
--- NOTE | 2017-04-28 17:31 | MH ---
cc: MYCHAL ALBERTS,LAMIN Paez M.D. Corrected: 05/25/2017 DATE OF ADMISSION: 05/27/2017 ADMITTING DIAGNOSIS: Osteoarthritis of the right hip pain right hip, gait disturbance. HISTORY The patient is a 72-year-old white female who has experienced pain of her right hip for least 1-1/2 years duration. She had noted the gradual onset of her discomfort unrelated to any specific injury. She had been accustomed to routine exercise activities which included playing Pickle ball and participating in [place], as her symptoms became more pronounced she had to discontinue these activities and was later evaluated by her primary care physician Dr. Lamin Mcduffie who diagnosed the patient as having bursitis. She was encouraged to continue with conservative management which included taking ibuprofen and modifying her activities. Her symptoms persisted. She became aware of limitations regarding her daily routine and later received a local steroid injection about the lateral aspect of her right hip that unfortunately did not prove to be of any significant benefit. When seen in follow-up disposition. She was describing pain extending into the buttock area for which she did receive a repeat injection without significant improvement again being noted. Subsequent x-ray studies reported moderate osteoarthritis about the right hip for which the patient was later seen by the undersigned physician in September of this past year at that time a review of her x-ray studies did reveal mild degenerative changes with satisfactory preservation of the joint space. Radiographs of her lumbosacral spine did reveal obvious degenerative changes associated with a grade 1 spondylolisthesis of L4 on L5. Findings and treatment options were reviewed at that time the patient elected to proceed with physical therapy for which she was thereafter followed on an outpatient basis. Treatment did prove to be of some limited benefit in the patient thereafter conformed independent exercise activities. She later underwent an MRI scan evaluation initially involving her lumbosacral spine which identified advance facette arthropathy at the L3, L4 and L4 L5 levels with moderate to severe degenerative disk disease of L4-5 and left posterior disk protrusion and foramen on the basement moderate central spinal stenosis at L4-5 and moderate degenerative disk disease at L3-4, L5-S1 without significant disk herniation. The patient continued to note discomfort including her lower back region for which she had underwent further diagnostic evaluation which included MRI scan of her pelvis which identified osteoarthritic findings of her right hip with severe subchondral bony changes including a large subchondral cyst in the femoral head and moderately severe diffuse articular cartilage thinning associated with a small joint effusion. These findings were reviewed with the patient and treatment options discussed thereafter she subsequently underwent a fluoroscopic injection of her right hip that afforded her approximately 4 weeks of near complete resolution of her pain before Her symptoms gradually recurred. She continued to no pain about her hip area radiating into the groin that was interfering with all ambulatory activities pros and cons of continuing with conservative management versus proceeding with operative intervention that would involve total hip arthroplasty were outlined. Emphasis was made regarding the fact that the decision to proceed with surgery would be left entirely to the patient's discretion. The patient readily admitted that she felt she had arrived at that point in time where she was ready to proceed accordingly and in compliance with her wishes she is currently being admitted in order that total hip replacement be completed her past medical history, hospitalizations and surgeries have included laparoscopic abdominal release of adhesions for a twisted small-bowel condition postoperatively. Her condition was complicated by developing atrial fibrillation. She is also status post tonsillectomy, appendectomy, colonoscopy. Medical management for diverticulitis and abdominal hysterectomy. Her medical illnesses include elevated cholesterol, atrial fibrillation reflux and hypertension. MEDICATIONS current medications other masses 740 mg daily. 1. Metoprolol 550 mg twice daily. 2. Lansoprazole 30 mg daily. 3. Amlodipine 5 mg daily. 4. Calcium with D three 600 mg daily biting. 5. Vitamin B12 1000 mg daily of 881 mg. 6. Aspirin tablet 2 tablets twice daily. 7. Lisinopril 20 mg daily. 8. Metamucil 2 tablespoons daily. ALLERGIES The patient denies any known drug allergies. REVIEW OF SYSTEMS She wears glasses. Denies headache, seizure or syncope. No sinus congestion or epistaxis. Auditory acuity intact. No tinnitus. No bleeding gums or dysphagia. She does have dental bridges denies cough, shortness of breath, upper respiratory infection, pneumonia or tuberculosis. No angina. She is medically managed for hypertension. Appetite is good. She has intermittent constipation treated with Metamucil and fetv-gtw-duppuuw products. No hepatitis, gallbladder disease, ulcers or hemorrhoids. No urinary tract infection. No kidney stones. History of fracture of the right foot treated by cast immobilization and no psychiatric illness. Her remaining review of systems is unremarkable and noncontributory. FAMILY HISTORY The patient has been 40-60 years. Her is 76 years of age in good health. One son and two daughters indicated to be in good health. Family history is positive for hypertension, diabetes, tuberculosis, lung cancer and heart disease. SOCIAL HISTORY The patient has been retired for 5 years. 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 Ethanol consumption socially. PHYSICAL EXAMINATION VITAL SIGNS: Height 5 feet, one-quarter inch weight 142 pounds. IN GENERAL: An alert, oriented responsive 72-year-old white female who sits quietly upon examination table with no obvious distress. HEAD, EYES, EARS, NOSE, AND THROAT: Eyes, nose and throat pupils are equally round and reactive to light. Extraocular movements full. Sclerae clear. External nares clear. External auditory canals clear. Semi edentulous in the maxillary distribution. Mucous membranes pink and moist. Pharynx clear. NECK: Neck is supple. Active range of motion with no appreciable pain. Carotid pulse bilaterally. Trachea midline. Thyroid without enlargement. LUNGS: Clear to auscultation and percussion. No CVA tenderness. No discomfort throughout the dorsal lumbar spine. HEART: Regular rhythm. No murmur or gallop. ABDOMEN: Abdomen is soft, nontender. Bowel sounds present. PELVIC: Per primary care physician. EXTREMITIES: Right hip. There is no localizing tenderness about the hip area in a seated position there is some limited and guarded mobility towards the extremes of motion being most pronounced with internal rotation and abduction maneuvering no sensation of crepitation or instability. Straight-leg raising unremarkable at 80 degrees. Amador sign is positive. Distal sensation grossly intact. Pronounced antalgic gait. NEUROLOGIC: Cranial nerves II-XII grossly intact. IMPRESSION Severe osteoarthritis of the right hip pain right hip, gait disturbance. PLAN Right total hip arthroplasty. The nature of the planned surgical procedure the potential complications and risks associated the expectations of surgery and the consent form were thoroughly reviewed with the patient prior to admission to the hospital varies indicated her full understanding regarding all of the above and given consent to proceed with treatment as outlined. Medical evaluation and clearance for surgery will be completed by her primary care physician Dr. Lamin Mcduffie cardiology clearance per Dr. Alberts. ADDENDUM: The patient is a 72-year-old white female who was recently scheduled to be admitted to [facility] for a history of osteoarthritis of her right hip in the anticipation of undergoing a right total hip arthroplasty. Unfortunately, her preadmission laboratory studies did reveal a urinary tract infection for which the patient's admission was cancelled, and she has subsequently been treated for this condition with resolution of the infection being noted. The patient had expressed her desire to be rescheduled in a very timely fashion given the ongoing symptoms about her right hip. In compliance with her wishes, her admission date has been rescheduled to the 27 of May as noted. The details of her previous history as well as the pertinent findings of her physical examination have remained unchanged. Once again the patient has indicated her full understanding with regards to the planned course of treatment, the potential complications and risks associated, the expectations of surgery and the consent form. In addition medical clearance has been completed by her primary care physician Dr. Lamin Mcduffie. ___ MD HUDSON Tavera/zulema /4:56 PM /5:11 PM SUKHDEEP
[~2017-05-13] VITALS: Ht 154.9 cm; Wt 62.1 kg
[~2017-05-13 10:00] MED LIST changes: +AMLO5TAB2 PO; -ASPI1TAB69 PO; +ATOR40TA16 PO; +CALC1TAB87 PO; -CIPR-9 PO; -HYDR-3533 PO; +META48.53 PO; -METO25TA3 PO; +METO50TA PO; -METR-1 PO; -SIMV20TA PO; +VITA10004 PO
[2017-06-12] MEDS ORDERED: ASPI81TA16 PO (10:52)
--- NOTE | 2017-06-29 08:20 | MH ---
cc: Matheus Henry MD DATE OF ADMISSION: 06/30/2017 ADMITTING DIAGNOSIS: Osteoarthritis right hip, pain right hip, gait disturbance. HISTORY OF PRESENT ILLNESS: This is a 72-year-old white female with pain of her right hip for more than 1-1/2 years duration. She had noted the gradual onset of her symptoms unrelated to injury or unusual activity. She had been accustomed to routine exercise in the past, which included playing pickle ball and participating in [place] during which time she began to experience increasing pain about the hip area as related to these activities. She had undergone previous medical evaluation with her primary care physician, Dr. Vamsi Mcduffie, who initially diagnosed her symptoms as being related to bursitis. The patient was encouraged to continue with conservative management, which included taking ibuprofen and modifying her activities. Unfortunately, her symptoms persisted and she became aware of limitations regarding her daily routine for which she did receive a steroid injection that unfortunately did not prove to be of any appreciable benefit. When seen in followup disposition, she was describing extending pain radiating into the buttock area for which she did receive a repeat injection without significant improvement noted. Subsequent x-ray studies identified moderate osteoarthritis about her right hip for which the patient was later seen by the undersigned physician in September of this past year, at which time her x-rays did identify degenerative changes. Additional radiographs of her lumbosacral spine revealed degenerative changes associated with a grade 1 spondylolisthesis of L4 on L5. Findings and treatment options were reviewed with the patient at that time. She elected to proceed with physical therapy intervention and was followed on an outpatient basis. Initially, there was some trend of improvement while the patient continued to conform to exercise activities. She later underwent an MRI scan of her lumbosacral spine which identified facet arthropathy at the L3-4 and L4-5 levels with moderate to severe degenerative disk disease at L4-L5 and a left posterior disk protrusion and moderate central spinal stenosis at L4-L5 and degenerative disk disease L3-4 and L5-S1 without significant disk herniation. The patient continued to note discomfort involving both her lower back and her hip area for which additional diagnostic evaluation of her pelvis including an MRI scan identified osteoarthritic changes about the right hip with severe subchondral bony changes including a large subchondral cyst in the femoral head and moderately severe diffuse articular cartilage thinning associated with a joint effusion. Findings were reviewed with the patient. The treatment options were discussed. The patient later underwent a fluoroscopic injection of her right hip that afforded her approximately 4 weeks of near complete resolution of her pain before her symptoms gradually recurred. She continued to note pain about her hip area radiating into the groin that was interfering with all ambulatory activities. The pros and cons of continuing with conservative management versus operative intervention that would involve a total hip arthroplasty were outlined with emphasis being made that the decision to proceed with surgery would be left entirely to the patient's discretion. The patient readily admitted that she felt that she had arrived at that point in time where she was ready to proceed with surgery given the progressive nature of her pain and her associated limitations regarding all activities of daily living. The specific involvement of total hip arthroplasty was outlined once again for which the patient indicated her full understanding and expressed her desire to proceed accordingly. In compliance with her wishes, she was scheduled for admission at this time in order that the above be accomplished. PAST MEDICAL, HOSPITALIZATIONS AND SURGERIES: Laparoscopic abdominal release of adhesions for a small bowel condition, treatment complicated by atrial fibrillation, tonsillectomy, appendectomy, colonoscopy. Additional hospitalizations include abdominal hysterectomy and medical management for diverticulitis. Her current illnesses, elevated cholesterol, atrial fibrillation, reflux, hypertension. MEDICATIONS: 1. Metoprolol 50 mg twice daily. 2. Lansoprazole 30 mg daily. 3. Amlodipine 5 mg daily. 4. Calcium with D3, 600 mg daily. 5. Vitamin B12 1000 mg daily. 6. 81 mg aspirin tablet twice daily. 7. Lisinopril 20 mg daily. 8. Metamucil 2 tablespoons daily. ALLERGIES: THE PATIENT DENIES ANY KNOWN DRUG ALLERGIES. REVIEW OF SYSTEMS: She wears glasses. No headache, seizure, or syncope. No sinus congestion or epistaxis. Auditory acuity intact. No tinnitus. No bleeding gums or dysphagia. She has a dental bridge. No cough, shortness of breath, upper respiratory infection, pneumonia, or tuberculosis. No angina. Medically managed for hypertension. Appetite good. Occasional constipation treated with Metamucil and igxj-qrc-jzxjaez products. No history of hepatitis, gallbladder disease, ulcers or hemorrhoids. There is a history of urinary tract infection. No kidney stones. Fracture of the right foot treated by cast immobilization. No psychiatric illness. The remaining review of systems is unremarkable and noncontributory. FAMILY HISTORY: for more than 40 years. Her is 76 years of age, in good health. One son and 2 daughters indicated to be in good health. Family history is positive for hypertension, diabetes, tuberculosis, lung cancer and heart disease. SOCIAL HISTORY: The patient has been retired for more than 5 years. 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 A [id number]-[id number] use of tobacco, stopped smoking within the past year. Ethanol consumption socially. PHYSICAL EXAM: VITAL SIGNS: Height 5 feet 1/4 inch, weight 142 pounds. GENERAL: This is an alert, oriented and responsive 72-year-old white female sitting quietly upon the examination table with no apparent distress. EARS, EYES, NOSE, AND THROAT: Pupils are equally round and reactive to light. Extraocular movements full. Sclerae are clear. External Nares clear. External auditory canals clear. Semi-edentulous in the maxillary distribution. Mucous membranes pink and moist. Pharynx clear. NECK: Supple. Active range of motion. No associated pain. Carotid pulse is palpable bilaterally. Trachea midline. Thyroid without thyroid enlargement. LUNGS: Clear to auscultation and percussion. No CVA tenderness. No discomfort involving the dorsal lumbar spine. HEART: Regular rate and rhythm. No murmur or gallop. ABDOMEN: Soft, nontender, bowel sounds present. PELVIC: Per her primary care physician. EXTREMITIES: Right hip, no localizing tenderness about the lateral aspect of the right hip. In a seated position, there is limited and guarded mobility at the extremes of motion, especially involving internal rotation and abduction with pain associated, but no crepitation or instability. Straight leg raising unremarkable at 80 degrees. Amador sign positive. Distal sensory grossly intact. Pronounced Antalgic gait. NEUROLOGIC: Cranial nerves II-XII grossly intact. IMPRESSION: Severe osteoarthritis of the right hip, pain right hip, gait disturbance. PLAN: Right total hip arthroplasty. The nature of the planned surgical procedure, the potential complications and risks associated. the expectations of surgery and the consent form were thoroughly reviewed with the patient prior to her admission to the hospital. Rose Marie has indicated her full understanding regarding all of the above and given consent to proceed with treatment as outlined. Medical evaluation and clearance for surgery completed by her primary care physician, Dr. Vamsi Mcduffie, cardiology clearance per Dr. Alberts. MD HUDSON Tavera/PORTIA , 07:12 AM , 08:19 AM
[2017-06-30] MEDS ORDERED: ceFAZolin 2 GM PREMIX 50 ML IV SCH (08:45)
[2017-06-30] MEDS ORDERED: CHLORHEXIDINE GLUCONATE 2 % 1 PACK (2 CLOTHS) TOPICAL PRN (09:00)
[2017-06-30] MEDS ORDERED: METOPROLOL TARTRATE 25 MG TAB PO PRN (09:00)
[2017-06-30] MEDS ORDERED: SODIUM CHLORID 0.9% 500 ML IV PRN (09:00)
[2017-06-30] MEDS ORDERED: TRANEXAMIC ACID 1 GM PRIOR TO PROCEDURE IV SCH ×2 (09:00)
[2017-06-30] MEDS ORDERED: LACTATED RINGER'S 1000 ML IV PRN (09:00)
[2017-06-30] MEDS ORDERED: ceFAZolin INJ 1,000 MG VIAL IRRIGATION ONE (10:40)
[2017-06-30] MEDS ORDERED: CHLORHEXIDINE GLUCONATE 4% SOLN 120 ML BTL TOPICAL SCH (10:45)
[2017-06-30] MEDS ORDERED: PROPOFOL 200 MG/20 ML AMP IV ONE (12:00)
[2017-06-30] MEDS ORDERED: TRANEXAMIC ACID 1 GM POST-OP IV SCH ×2 (12:00)
[2017-06-30] MEDS ORDERED: DO NOT ADM ANY ANTICOAGULANT DRUGS PRN (12:00)
[2017-06-30] MEDS ORDERED: Post-op Orders (for Pharmacy) XX ONE (12:00)
[2017-06-30] MEDS ORDERED: ROCURONIUM INJ 50 MG/5 ML SYRINGE IV PUSH ONE (12:00)
[2017-06-30] MEDS ORDERED: LIDOCAINE HCL 1% PF 5 ML SYRINGE OTHER ONE (12:00)
[2017-06-30] MEDS ORDERED: ePHEDrine/NS 25 MG/5 ML SYRINGE IV ONE (12:00)
[2017-06-30] MEDS ORDERED: ONDANSETRON HCL 4 MG/2 ML VIAL IV ONE (12:00)
[2017-06-30] MEDS ORDERED: PHENYLEPH/NS 1000 MCG/10 ML SYR IV ONE (12:00)
[2017-06-30] MEDS ORDERED: MIDAZOLAM HCL 2 MG/2 ML VIAL ONE (12:08)
--- NOTE | 2017-06-30 12:11 | HHI.FF ---
Face to Face Verification Diagnosis: (1) Degenerative joint disease of right hip Physical Therapy Gait training Hip: Total hip, Protocol: Right, Abduction pillow while in bed Right LE Weight Bearing: WB as tolerated Right LE Range of Motion: Active ROM Nursing Dressing Changes: Daily dressing change I have seen patient Rose Marie Velásquez on 06/30/17. My clinical findings support the need for the requested home health care services because: Limited ability to care for self High risk of falls I certify that my clinical findings support that this patient is homebound because: Post-op weakness Unsteady gait/balance Unsafe to leave home unassisted Matheus Henry MD Jun 30, 2017 12:11
[2017-06-30] MEDS ORDERED: *morphine SULFATE 10 MG/ML PERIprocedure ONLY ONE (12:13)
[2017-06-30] MEDS ORDERED: NALOXONE HCL 0.4 MG/ML AMP IV PUSH PRN (12:15)
[2017-06-30] MEDS ORDERED: ONDANSETRON HCL 4 MG/2 ML VIAL IVP PRN (12:15)
[2017-06-30] MEDS ORDERED: ACETAMINOPHEN/HYDROcodone 325 MG/5 MG TAB PO PRN (12:15)
[2017-06-30] MEDS ORDERED: PROMETHAZINE INJ 25 MG/ML VIAL IM PRN (12:15)
[2017-06-30] MEDS ORDERED: ZOLPIDEM TARTRATE 5 MG TAB PO PRN (12:15)
[2017-06-30] MEDS ORDERED: ACETAMINOPHEN 325 MG TAB PO PRN (12:15)
[2017-06-30] MEDS ORDERED: TRANEXAMIC ACID INJ 1,000 MG in SODIUM CHLORIDE 0.9% INJ 100 ML IV SCH (12:15)
[2017-06-30] MEDS ORDERED: DOCUSATE SODIUM 100 MG CAP PO PRN (12:15)
[2017-06-30] MEDS ORDERED: MISCELLANEOUS PHARMACY INFORMATION XX ONE (12:15)
--- NOTE | 2017-06-30 12:57 | MP ---
cc: Matheus Henry MD DATE OF OPERATION: 06/30/2017 PREOPERATIVE DIAGNOSIS: Osteoarthritis of the right hip; pain, right hip; and gait disturbance. POSTOPERATIVE DIAGNOSIS: Osteoarthritis of the right hip; pain, right hip; and gait disturbance. PROCEDURE: Right total hip arthroplasty. SURGEON: Matheus Henry MD ANESTHESIA: General endotracheal. INDICATIONS: A 72-year-old white male with right hip pain of more than a 1-1/2 years' duration, had noted gradual onset unrelated to injury or unusual activity, had been accustomed to routine activities in the past, which included plain pickleball and participating in [place] where she began to experience increasing pain as related to these activities. She had undergone previous medical evaluation with her primary care physician, Dr. Vamsi Mcduffie, who diagnosed her symptoms as being related to bursitis. She was encouraged to continue with conservative management, which included taking ibuprofen and modifying her activities. Her symptoms persisted and she became aware of obvious limitations regarding her daily routine, for which she did receive a steroid injection. Unfortunately, it did not prove to be of any appreciable benefit. When seen in followup disposition, she was describing extending pain radiating into the buttock area, for which she did receive a repeat injection without significant improvement noted. Subsequent x-ray studies identified moderate osteoarthritis about her right hip, for which the patient was later seen by the undersigned physician in September of this past year. At that time, her x-rays were repeated. Additional radiographs of her lumbosacral spine reveal degenerative changes with grade I spondylolisthesis of L4 on L5. Findings and treatment options were reviewed. The patient elected to proceed with physical therapy intervention and was followed on an outpatient basis. She initially experienced some trend of improvement, but continued to conform to exercise activities. She later underwent an MRI scan of her lumbar spine with facet arthropathy at the L3-4 and L4-5 levels, moderately severe degenerative disk disease at L4-5, left posterior disk protrusion and central spinal stenosis L4-5, and degenerative disk disease L3-4 and L5-S1. The patient continued to have discomfort involving both lower back and hip area, for which additional diagnostic studies including her pelvis identified osteoarthritic changes about the right hip with severe subchondral bony changes including a large subchondral cysts in the femoral head and moderately severe diffuse articular cartilage thinning associated with joint effusion. Findings and treatment options were reviewed with the patient at that time. She later underwent a fluoroscopic injection of her right hip that afforded her approximately 4 weeks of near complete resolution of her pain before her symptoms gradually recurred. She returned to the office noting increasing pain about her hip area that was beginning to interfere with all ambulatory activities. The pros and cons of continued conservative management versus operative intervention that would involve a total hip arthroplasty were outlined with emphasis being made that decision to proceed with surgery would be left entirely to the patient's discretion. The patient readily admitted that she felt she had arrived at that point in time, was ready to proceed with surgery given the progressive nature of her pain and associated limitations regarding all activities of daily living. In compliance with her wishes, she was scheduled for admission at this time in order that the above be accomplished. DESCRIPTION OF PROCEDURE: Following the induction of satisfactory anesthesia by endotracheal intubation as completed per the department of anesthesia, patient was positioned on the operating table in the left lateral decubitus fashion. Right hip and lower extremity proper were isolated with a U-drape, thereafter being prepped with Betadine solution and draped into a sterile field in the routine manner. Prior to initiation of the actual procedure, the standard timeout protocol was completed. All parameters were appropriately addressed and confirmed by operating room personnel. Standard posterolateral approach to the hip was initiated through a sharp skin incision and developed to underlying subcutaneous tissue. Hemostasis maintained by electrocautery. By deepening dissection, the fascia overlying the gluteus musculature was exposed and thereafter sharply incised to the limits of the incision. The underlying gluteus fibers were bluntly divided and deepening dissection facilitated exposure of the short external rotator structures. Piriformis tendon was utilized as an anatomical landmark and division of these structures was completed in a superior to inferior orientation and reflected medially, exposing the posterior capsule. Sciatic nerve was protected. L-shaped capsulotomy was accomplished, through which a posterior dislocation of the femoral head completed. Examination revealed severe degenerative changes with significant erosion of articular cartilage and underlying subchondral bone exposed. Femoral template was positioned for alignment orientation, neck scored and thereafter divided with power saw, amputated segment being passed to the back table as surgical specimen. Attention was initially directed to the proximal femur, cancellous bone harvested. Tapered reamer inserted for alignment orientation. Sequential rasping and broaching accomplished from 7 through 9 mm, calcar tasha being utilized with a 9 mm stage. A 9 mm stem was determined to be a favorable fit. Trial component being removed, attention was redirected to the acetabulum. The labrum and reactive soft tissue were sharply excised. Progressive reaming was accomplished from 48 through 51 mm. The 52 trial shell positioned and determined to be satisfactory. With all trial components being removed, the wound was copiously irrigated with pulsating antibiotic solution. Hemostasis maintained by electrocautery. Harvested cancellous bone was digitally impacted into the depths of the acetabulum and thereafter, a 52 mm Continuum acetabular shell was firmly seated in approximately 45 degrees inclination to the horizontal and slight anteversion. A single 25 mm 6.5 cancellous screw was inserted superiorly to augment fixation. Permanent high wall acetabular liner affixed to the acetabular shell. The #9 femoral stem was repositioned and a trial reduction followed utilizing a 36 mm modular head with -6 mm neck length adaptor. The hip readily reduced and was carried through a passive range of motion. Stability demonstrated at 90 degrees flexion and 45 degrees internal rotation. Open dislocation completed. All trial components being removed, the canal was thoroughly irrigated and dried and thereafter, the permanent size 9 Echo Bi-Metric stem was firmly seated, to which a 36 mm ceramic head with -6 mm neck length with adapter attached, open reduction completed and repeat range of motion again noted stability as previously described. Final irrigation completed, hemostasis maintained by electrocautery. Posterior capsule was repaired with 0 Vicryl suture. Piriformis tendon and short external rotator structures were reapproximated in a similar fashion. Hemovac drain tubes inserted through superior stab wounds. The fascia was reapproximated with a running 0 Vicryl suture. The remaining portion of the wound was closed in layers in the routine manner. Skin margins being reapproximated with a running subcuticular 3-0 Vicryl suture, over which Steri-Strips were applied. Xeroform gauze and a bulky dry sterile dressing were placed. The patient was repositioned into the supine orientation when abduction splint was attached. Anesthesia was discontinued and the patient was transferred to the hospital bed and returned to the recovery room in satisfactory condition, having tolerated her operative procedure well. ESTIMATED BLOOD LOSS: Approximately 250 mL as determined per anesthesia. IMPLANTS: Femoral implants were of the Biomet winch runner, acetabular implants of the Anel winch runner. MD HUDSON Tavera/SB , 12:05 PM , 12:56 PM
[2017-06-30] MEDS: DEXT 5%-NACL 0.45% 1000 ML INJ 1,000 ML IV SCH ×2 (13:00→21:39)
[2017-06-30] MEDS: MORPHINE SULFATE 30 MG/30 ML PCA IV SCH (13:09)
--- NOTE | 2017-06-30 13:14 | RADRPT ---
EXAM DATE/TIME: 06/30/2017 12:56 [facility] COMPARISON: No previous studies available for comparison. INDICATIONS : Post right hip arthroplasty. MEDICAL HISTORY : Hypertension. SURGICAL HISTORY : Hysterectomy. ENCOUNTER: Initial ACUITY: 1 day PAIN SCORE: 9/10 LOCATION: Right hip FINDINGS: Patient is status post placement of a right hip prosthesis. There is good position and alignment of t he prosthesis and bony structures. The bony structures are grossly intact. Postsurgical changes are p resent. CONCLUSION: Good position and alignment on this postoperative examination. Michel Adkins MD on June 30, 2017 at 13:11 Board Certified Radiologist. This report was verified electronically.
[2017-06-30] MEDS: PCA - TOTAL MG MORPHINE DELIVERED PER SHIFT SCH ×2 (14:00→22:00)
--- NOTE | 2017-06-30 15:14 | PD.CONS ---
[facility] Requested By Primary Care Physician Vamsi Mcduffie MD Diagnoses: History of Present Illness 72-year-old female with a history of hypertension, hyperlipidemia, atrial fibrillation, GERD who is seen following elective right knee replacement secondary to osteoarthritis. She reports pain is currently controlled. Denies any chest pain, shortness of breath, nausea, vomiting, lightheadedness, dizziness. Reports feeling fine prior to admission. She does say that last bowel movement was 2 days ago, and she suffers from intermittent constipation at home. Review of Systems Except as stated in HPI: all other systems reviewed are Neg Past Family Social History Allergies: Coded Allergies: povidone-iodine (Verified Allergy, Severe, 06/30/17) SKIN REACTION, REDNESS AND BLISTERS soap (Verified Allergy, Severe, 06/30/17) SKIN REACTION, REDNESS AND BLISTERS Past Medical History Hypertension Hyperlipidemia Atrial fibrillation GERD Patient reports history of lumbar spinal stenosis. Past Surgical History Small bowel obstruction with lysis of adhesions Tonsillectomy Appendectomy Colonoscopy Hysterectomy Reported Medications Atorvastatin 40 mg daily Metoprolol 50 mg by mouth twice daily Amlodipine 5 mg by mouth daily Lisinopril 20 mg daily Aspirin 81 mg daily Calcium carbonate cholecalciferol [id number] mg daily Metamucil 1 scoop daily Lansoprazole 30 mg by mouth daily Vitamin D 1000 mcg by mouth daily Family History Both parents secondary to heart disease in their 60s Social History [id number] history, quit in January. Occasional alcohol use. Denies any illicit drug use. Physical Exam Vital Signs Vital Signs Date Time Temp Pulse Resp B/P (MAP) Pulse Ox O2 Delivery O2 Flow Rate FiO2 06/30/17 15:00 67 16 100/54 (69) 96 Nasal Cannula 2 06/30/17 14:00 68 16 91/55 (67) 96 Nasal Cannula 2 06/30/17 13:30 68 16 95/58 (70) 95 Nasal Cannula 2 06/30/17 13:09 15 06/30/17 13:00 69 16 94/59 (71) 95 Nasal Cannula 2 06/30/17 12:45 70 15 96/55 (69) 95 Nasal Cannula 2 06/30/17 12:30 75 15 92/54 (67) 98 Nasal Cannula 3 06/30/17 12:18 15 06/30/17 12:15 78 14 90/53 (65) 96 Nasal Cannula 3 06/30/17 12:00 97.4 83 14 86/47 (60) 95 Nasal Cannula 3 06/30/17 08:43 98.0 63 20 144/62 (89) 93 Physical Exam GENERAL: This is a well-nourished, well-developed patient, in no apparent distress. She is drowsy following surgery but oriented 3. SKIN: No rashes, ecchymoses or lesions. Cool and dry. HEAD: Atraumatic. Normocephalic. No temporal or scalp tenderness. EYES: Pupils equal round and reactive. Extraocular motions intact. No scleral icterus. No injection or drainage. ENT: Nose without bleeding, purulent drainage or septal hematoma. Throat without erythema, tonsillar hypertrophy or exudate. Uvula midline. Airway patent. NECK: Trachea midline. No JVD or lymphadenopathy. Supple, nontender, no meningeal signs. CARDIOVASCULAR: Regular rate and rhythm without murmurs, gallops, or rubs. RESPIRATORY: Clear to auscultation. Breath sounds equal bilaterally. No wheezes , rales, or rhonchi. GASTROINTESTINAL: Abdomen soft, non-tender, nondistended. No hepato-splenomegaly , or palpable masses. No guarding. MUSCULOSKELETAL: Extremities without clubbing, cyanosis, or edema. No joint tenderness, effusion, or edema noted. No calf tenderness. Negative Homans sign bilaterally. Postoperative knee not examined. Peripheral perfusion intact. NEUROLOGICAL: Awake and alert. Cranial nerves II through XII intact. Motor and sensory grossly within normal limits. Five out of 5 muscle strength in all muscle groups. Normal speech. Imaging Last Impressions Hip X-Ray 06/30/17 1207 Signed Impressions: Service Date/Time: Friday, June 30, 2017 12:56 - CONCLUSION: Good position and alignment on this postoperative examination. Michel Adkins MD Assessment and Plan Assessment and Plan //Postoperative elective right knee replacement on 06/30 = Postsurgical management as per surgical service Anticoagulation as per surgical service //Constipation. Laxatives ordered. Await return of bowel function. //History of atrial fibrillation. Continue beta-dot. Coagulation as per surgical service //Hypertension. Blood pressure somewhat low in the 90s systolic currently. Will continue metoprolol. Hold lisinopril and amlodipine. //GERD. Continue PPI. //Hyperlipidemia. Chronic. Continue atorvastatin. //Prophylaxis. Anticoagulation as per surgical service. Discussed Condition With Patient, PACU nurse Kushal Bach MD Jun 30, 2017 15:14
[2017-06-30] MEDS ORDERED: DOCUSATE SODIUM 50 MG/SENNA 8.6 MG TAB PO ONE (17:00)
[2017-06-30] MEDS ORDERED: MAGNESIUM HYDROXIDE SUSP 30 ML CUP PO ONE (17:00)
[2017-06-30 19:46] VITALS: O2SAT 96
[2017-06-30 20:15] VITALS: BP 140/65; PULSE 74; RESP 17; TEMP 97.2; O2SAT 94
[2017-06-30] MEDS: METOPROLOL TARTRATE 50 MG TAB PO SCH (21:18)
[2017-06-30] MEDS: DOCUSATE SODIUM 50 MG/SENNA 8.6 MG TAB PO SCH (21:18)
[2017-07-01] VITALS (7 sets, daily range): BP systolic 97–158; BP diastolic 53–68; PULSE 78–102; RESP 16–18; TEMP 97.6–100; O2SAT 91–99
[2017-07-01] MEDS: MORPHINE SULFATE 30 MG/30 ML PCA IV SCH (00:46)
[2017-07-01] MEDS ORDERED: CALCIUM CARBONATE 500 MG CHEWABLE TAB CHEW ONE (04:30)
[2017-07-01] MEDS: DEXT 5%-NACL 0.45% 1000 ML INJ 1,000 ML IV SCH ×2 (05:16→20:51)
[2017-07-01] MEDS: PCA - TOTAL MG MORPHINE DELIVERED PER SHIFT SCH ×2 (06:00→20:52)
[2017-07-01] MEDS ORDERED: ASPI-183 PO (06:12)
[2017-07-01] MEDS ORDERED: HYDR-3516 PO (06:12)
[2017-07-01] MEDS ORDERED: ADJUSTABLE COMM1 MIS (06:18)
[2017-07-01] MEDS ORDERED: WALKER WHEELS/F1 MIS (06:18)
[2017-07-01] MEDS: PANTOPRAZOLE SOD 40 MG DELAYED RELEASE TAB PO SCH (09:32)
[2017-07-01] MEDS: DOCUSATE SODIUM 50 MG/SENNA 8.6 MG TAB PO SCH ×2 (09:32→20:55)
[2017-07-01] MEDS: CYANOCOBALAMIN 1,000 MCG TAB PO SCH (09:32)
[2017-07-01] MEDS: METOPROLOL TARTRATE 50 MG TAB PO SCH ×2 (09:33→20:55)
[2017-07-01] MEDS: ATORVASTATIN 40 MG TAB PO SCH (09:33)
[2017-07-01] MEDS: RIVAROXABAN 10 MG TAB PO SCH (12:20)
[2017-07-01 13:19] LABS: HEMATOCRIT 29.7 % (35.0-46.0); HEMOGLOBIN 10.6 GM/DL (11.6-15.3)
[2017-07-01 17:54] LABS: ALBUMIN 3.1 GM/DL (3.4-5.0); BICARBONATE 29.3 MEQ/L (21.0-32.0); CALCIUM 9.5 MG/DL (8.5-10.1); CREATININE 0.57 MG/DL (0.50-1.00); PHOSPHORUS 2.1 MG/DL (2.5-4.9)
[2017-07-01] MEDS: ACETAMINOPHEN/HYDROcodone 325 MG/5 MG TAB PO PRN (20:56)
[2017-07-01] MEDS ORDERED: MAGNESIUM HYDROXIDE SUSP 30 ML CUP PO ONE (22:00)
[2017-07-01] MEDS ORDERED: DOCUSATE SODIUM 50 MG/SENNA 8.6 MG TAB PO ONE (22:00)
--- NOTE | 2017-07-01 22:06 | HHI.PR ---
Subjective Remarks Patient seen today around 2 PM. Says she is feeling all right. Reports pain is reasonably well-controlled. She denies any chest pain or shortness of breath. She has had some nausea she believes from morphine, however no vomiting. No bowel movements. Objective Vital Signs Date Time Temp Pulse Resp B/P (MAP) Pulse Ox O2 Delivery O2 Flow Rate FiO2 07/01/17 16:44 97.8 92 18 124/58 (80) 99 07/01/17 11:39 97.7 95 17 138/68 (91) 96 07/01/17 08:00 99.0 85 18 123/59 (80) 94 07/01/17 06:00 16 07/01/17 04:15 97.6 78 17 134/61 (85) 93 07/01/17 00:46 18 07/01/17 00:10 98.7 83 17 151/64 (93) 93 I/O 06/30/17 06/30/17 06/30/17 07/01/17 07/01/17 07/01/17 07:00 15:00 23:00 07:00 15:00 23:00 Intake Total 1300 ml 240 ml 720 ml 1200 ml Output Total 250 ml 660 ml Balance 1050 ml -420 ml 720 ml 1200 ml Intake Oral 240 ml 720 ml 1200 ml Other 1300 ml Output Urine Total 600 ml Drainage Total 60 ml Estimated Blood Loss 250 ml # Voids 3 3 # Bowel Movements 0 0 Result Diagram: 07/01/17 1226 07/01/17 4607 Objective Remarks GENERAL: patient sitting up in bed. Appears comfortable. SKIN: Warm and dry. HEAD: Normocephalic. EYES: No scleral icterus. No injection or drainage. NECK: Supple, trachea midline. No JVD. CARDIOVASCULAR: Regular rate and rhythm without murmurs, gallops, or rubs. RESPIRATORY: Breath sounds equal bilaterally. No accessory muscle use. GASTROINTESTINAL: Abdomen soft, non-tender, nondistended. MUSCULOSKELETAL: No cyanosis, or edema. BACK: Nontender without obvious deformity. No CVA tenderness. A/P Assessment and Plan Patient seen today around 2 PM. Says she is feeling all right. Reports pain is reasonably well-controlled. She denies any chest pain or shortness of breath. She has had some nausea she believes from morphine, however no vomiting. No bowel movements. Discharge Planning we will continue to follow Kushal Bach MD Jul 01, 2017 22:06
[2017-07-02] MEDS: ACETAMINOPHEN/HYDROcodone 325 MG/5 MG TAB PO PRN ×6 (01:30→22:37)
[2017-07-02] MEDS: PCA - TOTAL MG MORPHINE DELIVERED PER SHIFT SCH (01:51)
[2017-07-02] MEDS: DEXT 5%-NACL 0.45% 1000 ML INJ 1,000 ML IV SCH ×2 (01:51→11:13)
[2017-07-02 04:00] VITALS: BP 118/57; PULSE 74; RESP 18; TEMP 97.8; O2SAT 95
[2017-07-02 04:09] VITALS: BP 112/56; PULSE 78; RESP 16; TEMP 100.2; O2SAT 93
[2017-07-02 08:00] VITALS: BP 193/79; PULSE 84; RESP 20; TEMP 95.6; O2SAT 97
[2017-07-02] MEDS: ATORVASTATIN 40 MG TAB PO SCH (08:37)
[2017-07-02] MEDS: METOPROLOL TARTRATE 50 MG TAB PO SCH ×2 (08:37→21:08)
[2017-07-02] MEDS: PANTOPRAZOLE SOD 40 MG DELAYED RELEASE TAB PO SCH (08:37)
[2017-07-02] MEDS: DOCUSATE SODIUM 50 MG/SENNA 8.6 MG TAB PO SCH ×2 (08:37→21:08)
[2017-07-02] MEDS: CYANOCOBALAMIN 1,000 MCG TAB PO SCH (08:37)
[2017-07-02] MEDS ORDERED: DOCUSATE SODIUM 50 MG/SENNA 8.6 MG TAB PO ONE (09:00)
[2017-07-02] MEDS ORDERED: MAGNESIUM HYDROXIDE SUSP 30 ML CUP PO ONE (09:00)
[2017-07-02] MEDS: amLODIPine BESYLATE 5 MG TAB PO SCH (09:30)
[2017-07-02] MEDS: LISINOPRIL 20 MG TAB PO SCH (09:30)
[2017-07-02] MEDS: RIVAROXABAN 10 MG TAB PO SCH (11:10)
[2017-07-02 12:00] VITALS: BP 118/59; PULSE 74; RESP 20; TEMP 96.5; O2SAT 97
--- NOTE | 2017-07-02 12:24 | HHI.PR ---
Subjective Remarks Patient seen this morning around 9 AM. Says she is generally feeling okay. She does have an episode where she got dry eggs stuck in her throat. This has resolved. She denies any difficulty swallowing. Denies any cough. Denies nausea. Denies any chest pain or shortness of breath. Objective Vital Signs Date Time Temp Pulse Resp B/P (MAP) Pulse Ox O2 Delivery O2 Flow Rate FiO2 07/02/17 08:00 95.6 84 20 193/79 (117) 97 07/02/17 04:09 100.2 78 16 112/56 (74) 93 07/02/17 04:00 97.8 74 18 118/57 (77) 95 07/01/17 23:43 98.3 102 16 158/67 (97) 93 07/01/17 22:25 21 07/01/17 16:44 97.8 92 18 124/58 (80) 99 I/O 07/01/17 07/01/17 07/01/17 07/02/17 07/02/17 07/02/17 07:00 15:00 23:00 07:00 15:00 23:00 Intake Total 720 ml 1200 ml Balance 720 ml 1200 ml Intake Oral 720 ml 1200 ml # Voids 3 3 # Bowel Movements 0 0 Result Diagram: 07/01/17 1226 07/01/17 1657 Objective Remarks GENERAL: patient sitting up in bed. Appears comfortable. No change on exam SKIN: Warm and dry. HEAD: Normocephalic. EYES: No scleral icterus. No injection or drainage. NECK: Supple, trachea midline. No JVD. CARDIOVASCULAR: Regular rate and rhythm without murmurs, gallops, or rubs. RESPIRATORY: Breath sounds equal bilaterally. No accessory muscle use. GASTROINTESTINAL: Abdomen soft, non-tender, nondistended. MUSCULOSKELETAL: No cyanosis, or edema. BACK: Nontender without obvious deformity. No CVA tenderness. A/P Assessment and Plan //Postoperative elective right knee replacement on 06/30 = Postsurgical management as per surgical service Anticoagulation as per surgical service //Constipation. Laxatives ordered again today. Continue to await return of bowel function. //History of atrial fibrillation. Continue beta-dot. Coagulation as per surgical service //Hypertension. Blood pressure somewhat low in the 90s systolic currently. Will continue metoprolol. Hold lisinopril and amlodipine. -Blood pressure acceptable, probably will have to start back on blood pressure meds tomorrow. = 07/02. Blood pressures elevated in the 190 systolic. Will start back on home amlodipine, MELANIE inhibitor this morning. //Low-grade temperature 100.2. No signs or symptoms of infection will start incentive spirometry and Acapella. //GERD. Continue PPI. //Hyperlipidemia. Chronic. Continue atorvastatin. //Prophylaxis. Anticoagulation as per surgical service. Discharge Planning we will continue to follow Kushal Bach MD Jul 02, 2017 12:24
[2017-07-02] MEDS ORDERED: ENALAPRILAT 1.25 MG/ML VIAL IV PUSH PRN (12:30)
[2017-07-02 16:00] VITALS: BP 112/54; PULSE 82; RESP 20; TEMP 97.1; O2SAT 90
[2017-07-02 20:00] VITALS: BP 132/61; PULSE 98; RESP 20; TEMP 97; O2SAT 92
[2017-07-03] VITALS: BP 111/55; PULSE 88; RESP 18; TEMP 96.8; O2SAT 97
[2017-07-03] MEDS: ACETAMINOPHEN/HYDROcodone 325 MG/5 MG TAB PO PRN ×3 (02:48→15:29)
--- NOTE | 2017-07-03 06:37 | MD ---
cc: Matheus Henry MD, Ryan R MD Goldsmith,Rico Santo MD DATE OF DISCHARGE: 07/03/2017 ADMITTING DIAGNOSIS: Osteoarthritis of the right hip pain, right hip and gait disturbance. DISCHARGE DIAGNOSIS: Osteoarthritis of the right hip pain, right hip and gait disturbance. HISTORY: A 72-year-old white female with a 1-1/2 year history of pain involving her right hip area as related to osteoarthritis. She had conformed to conservative management in this regard, but with the passage of time, she became increasingly more symptomatic with pain that began to limit all weightbearing activities. She had received a previous intraarticular steroid injection that afforded her almost one month of complete pain relief before her symptoms gradually recurred. She had undergone previous evaluation with both her primary care physician as well as the undersigned physician, at which time the diagnosis of osteoarthritis was confirmed. She became increasingly more symptomatic with pain over the passage of time in spite of continued conservative modalities and the follow up x-ray studies revealed significant degenerative changes of her right hip for which treatment options were reviewed. The pros and cons of continuing with conservative management versus operative intervention that would involve a total hip arthroplasty were outlined. Emphasis was made regarding the fact that the decision to proceed with surgery would be left entirely to the patient's discretion. The patient readily admitted that her symptoms have progressed to that point in time and was desirous of proceeding with surgery as discussed, for which she was currently scheduled for admission. For additional details with regard to the patient's history in this regard, interested parties would be directed to her admitting history and physical report. PHYSICAL EXAMINATION: At the time of admission, exam revealed no localizing tenderness about the lateral aspect of the right hip. In a seated position, there was limited and guarded mobility of the hip joint, especially involving internal rotation and abduction with pain at the extreme of motion. No associated crepitation or instability. Straight leg raising was unremarkable at 80 degrees. Amador sign positive. Distal sensory grossly intact. Pronounced antalgic gait. HOSPITAL COURSE: Prior to admission to the hospital, the patient had undergone medical evaluation and clearance for surgery as completed by her primary care physician, Dr. Vamsi Mcduffie and cardiology clearance per Dr. Alberts. She was taken to the operating room on 06/30/2017 and on that date underwent a right total hip arthroplasty completed in an uncomplicated manner. The patient was noted to have tolerated her operative procedure well and her postoperative course stable thereafter. Hemoglobin and hematocrit assessment postoperatively was 10.6 and 29.7 respectively. The patient was progressively mobilized under the guidance of physical therapy being permitted weightbearing to tolerance about the right lower extremity. Followup examination of her surgical wound noted to be intact, healing favorably no evidence of infection. Medical followup per the hospitalist service. DVT prophylaxis initiated. Early Childhood Specialist consulted to assist with discharge planning. The patient had indicated her preference to be discharged to a rehab facility to continue her rehabilitation upon discharge from the hospital. Plans were finalized in this regard and pending medical clearance, she was scheduled for discharge on the third postoperative day, at which time she was noted to be making favorable progress with regard to initial rehabilitation program. She was scheduled to be seen in office followup in approximately 3 weeks. Her condition at the time of discharge stable and prognosis favorable. DISCHARGE MEDICATIONS: Included hydrocodone 5/325, #60, aspirin 325 mg 1 tab twice daily for 4 weeks, #60. To both Dr. Vamsi Monroy as well as Dr. Alberts 23. Matheus Henry MD NBS/DL , 06:17 AM , 06:35 AM
[2017-07-03 08:00] VITALS: BP 114/52; PULSE 79; RESP 14; TEMP 97.5; O2SAT 93
[2017-07-03] MEDS: PANTOPRAZOLE SOD 40 MG DELAYED RELEASE TAB PO SCH (08:34)
[2017-07-03] MEDS: DOCUSATE SODIUM 50 MG/SENNA 8.6 MG TAB PO SCH (08:35)
[2017-07-03] MEDS: ATORVASTATIN 40 MG TAB PO SCH (08:35)
[2017-07-03] MEDS: METOPROLOL TARTRATE 50 MG TAB PO SCH (08:35)
[2017-07-03] MEDS: CYANOCOBALAMIN 1,000 MCG TAB PO SCH (08:35)
[2017-07-03] MEDS: LISINOPRIL 20 MG TAB PO SCH (08:39)
[2017-07-03] MEDS: amLODIPine BESYLATE 5 MG TAB PO SCH (08:39)
[2017-07-03] MEDS ORDERED: NYST10007 TOPICAL (09:38)
[2017-07-03] MEDS ORDERED: MAGNESIUM HYDROXIDE SUSP 30 ML CUP PO ONE (10:00)
[2017-07-03] MEDS ORDERED: SOD PHOSPHATE/SOD BIPHOSPHATE (ADULT) ENEMA 133ML RECTAL ONE (10:00)
[2017-07-03] MEDS ORDERED: DOCUSATE SODIUM 50 MG/SENNA 8.6 MG TAB PO ONE (10:00)
[2017-07-03] MEDS: RIVAROXABAN 10 MG TAB PO SCH (10:50)
[2017-07-03 11:44] VITALS: O2SAT 96
[2017-07-03 12:00] VITALS: BP 119/67; PULSE 88; RESP 15; TEMP 97.4; O2SAT 93
[2017-07-03] MEDS ORDERED: BISACODYL 10 MG SUPP RECTAL PRN (13:00)
[2017-07-03 16:00] VITALS: BP 126/59; PULSE 88; RESP 15; TEMP 98.3; O2SAT 94
--- NOTE | 2017-07-03 17:46 | HHI.PR ---
Subjective Remarks Patient seen this morning. Says she is feeling well. I think chest pain or shortness of breath. She does report a rash on her back, has been lying in bed. Has been using Lotrisone cream with some improvement. Objective Vital Signs Date Time Temp Pulse Resp B/P (MAP) Pulse Ox O2 Delivery O2 Flow Rate FiO2 07/03/17 16:00 98.3 88 15 126/59 (81) 94 07/03/17 12:00 97.4 88 15 119/67 (84) 93 07/03/17 11:44 96 21 07/03/17 08:00 97.5 79 14 114/52 (72) 93 07/03/17 00:00 96.8 88 18 111/55 (73) 97 07/02/17 21:00 Room Air 07/02/17 20:00 97.0 98 20 132/61 (84) 92 07/02/17 18:52 93 Room Air I/O 07/02/17 07/02/17 07/02/17 07/03/17 07/03/17 07/03/17 07:00 15:00 23:00 07:00 15:00 23:00 Intake Total 360 ml 240 ml Balance 360 ml 240 ml Intake Oral 360 ml 240 ml # Voids 7 4 # Bowel Movements 0 0 Result Diagram: 07/01/17 1226 07/01/17 1657 Objective Remarks GENERAL: patient sitting up in bed. Appears comfortable. No change on exam. Alert and oriented 3 SKIN: Warm and dry. HEAD: Normocephalic. EYES: No scleral icterus. No injection or drainage. NECK: Supple, trachea midline. No JVD. CARDIOVASCULAR: Regular rate and rhythm without murmurs, gallops, or rubs. RESPIRATORY: Breath sounds equal bilaterally. No accessory muscle use. GASTROINTESTINAL: Abdomen soft, non-tender, nondistended. MUSCULOSKELETAL: No cyanosis, or edema. BACK: Nontender without obvious deformity. No CVA tenderness. A/P Assessment and Plan //Postoperative elective right knee replacement on 06/30 = Postsurgical management as per surgical service Anticoagulation as per surgical service //Constipation. Laxatives ordered again today. Continue to await return of bowel function. //History of atrial fibrillation. Continue beta-dot. Coagulation as per surgical service //Hypertension. Blood pressure somewhat low in the 90s systolic currently. Will continue metoprolol. Hold lisinopril and amlodipine. -Blood pressure acceptable, probably will have to start back on blood pressure meds tomorrow. = 07/02. Blood pressures elevated in the 190 systolic. Will start back on home amlodipine, MELANIE inhibitor this morning. = Elevated pressures resolved on home medications. //Low-grade temperature 100.2. No signs or symptoms of infection will start incentive spirometry and Acapella. =no fevers //GERD. Continue PPI. //Candidal back rash. Nystatin powder to back. //Hyperlipidemia. Chronic. Continue atorvastatin. //Prophylaxis. Anticoagulation as per surgical service. Discharge Planning patient discharged. Kushal Bach MD Jul 03, 2017 17:46
== END 2017-07-03 18:14 | DRG 470 ==
LOC: EDSTATUS 10:00 → HSDI 06-30 07:58 → N06A 06-30 17:42
PROVIDERS: ADMIT Orthopaedic Surgery; ATTEND Orthopaedic Surgery
PROC: 0SR904Z Replacement of Right Hip Joint with Ceramic on Polyethylene Synthetic Substitute, Open Approach (ICD-10-PCS; principal; 2017-06-30 09:48)
DX: M16.11 Unilateral primary osteoarthritis, right hip (principal); I48.91 Unspecified atrial fibrillation; I10 Essential (primary) hypertension; M85.68 Other cyst of bone, other site; B37.2 Candidiasis of skin and nail; K21.9 Gastro-esophageal reflux disease without esophagitis; M51.26 Other intervertebral disc displacement, lumbar region; E78.5 Hyperlipidemia, unspecified; K59.00 Constipation, unspecified; M51.27 Other intervertebral disc displacement, lumbosacral region; M51.36 Other intervertebral disc degeneration, lumbar region; M43.16 Spondylolisthesis, lumbar region; M48.061 Spinal stenosis, lumbar region without neurogenic claudication; E78.00 Pure hypercholesterolemia, unspecified; Z87.891 Personal history of nicotine dependence; Z96.651 Presence of right artificial knee joint
CPT/HCPCS: 73501; 80069; 85014; 85018; 86850; 86900; 86901; 86920; 86922; 88304; 88305; 88311; 94150; 94667; C1776; J0690; J2250; J2270; J2370; J2405; J3010; J7120

== ENCOUNTER → 2017-05-20 | Outpatient (CLI) | payer MEDICARE ==
[~2017-05-20] MED LIST changes: +ASPI1CHW4 CHEW; +MACR100C2 PO
[2017-05-20 11:36] LABS: AUTOMATED NEUTROPHIL # 3.6 TH/MM3 (1.8-7.7); BASOPHIL % 0.6 % (0.0-2.0); EOSINOPHIL # 0.1 TH/MM3 (0-0.4); EOSINOPHIL % 1.5 % (0.0-4.0); HEMATOCRIT 38.6 % (35.0-46.0); HEMOGLOBIN 13.4 GM/DL (11.6-15.3); LYMPH % 26.6 % (9.0-44.0); LYMPHOCYTE # 1.5 TH/MM3 (1.0-4.8); MEAN CELL VOLUME 87.7 FL (80.0-100.0); MEAN CORPUSCULAR HEMOGLOBIN 30.4 PG (27.0-34.0); MEAN CORPUSCULAR HGB CONC 34.7 % (32.0-36.0); MEAN PLATELET VOLUME 7.6 FL (7.0-11.0); MONO % 7.1 % (0.0-8.0); MONOCYTE # 0.4 TH/MM3 (0-0.9); NEUT % 64.2 % (16.0-70.0); PLATELET COUNT 262 TH/MM3 (150-450); RED CELL DISTRIBUTION WIDTH 12.7 % (11.6-17.2); WHITE BLOOD COUNT 5.6 TH/MM3 (4.0-11.0)
[2017-05-20 11:37] LABS: BILIRUBIN, URINE NEG (NEG); BLOOD, URINE NEG (NEG); GLUCOSE,URINE NEG (NEG); KETONE, URINE NEG (NEG); MUCUS URINE FEW /lpf (OCC); NITRITE,URINE NEG (NEG); PH, URINE 5.5 (5.0-8.5); URINE COLOR YELLOW (YELLW/STRAW); URINE LEUKOCYTE ESTERASE NEG (NEG)
[2017-05-20 11:57] LABS: BICARBONATE 27.5 MEQ/L (21.0-32.0); CALCIUM 10.4 MG/DL (8.5-10.1); CREATININE 0.55 MG/DL (0.50-1.00)
== END ==
LOC: CPRE 10:06
PROVIDERS: ATTEND Orthopaedic Surgery
DX: Z01.812 Encounter for preprocedural laboratory examination (principal); I48.91 Unspecified atrial fibrillation; M16.11 Unilateral primary osteoarthritis, right hip
CPT/HCPCS: 36415; 80048; 81001; 85025; 85610

== ENCOUNTER → 2017-06-12 | Outpatient (CLI) | payer MEDICARE ==
[~2017-06-12] MED LIST changes: +ASPI81TA16 PO
[2017-06-12 11:13] LABS: AUTOMATED NEUTROPHIL # 3.6 TH/MM3 (1.8-7.7); BASOPHIL % 0.7 % (0.0-2.0); EOSINOPHIL # 0.1 TH/MM3 (0-0.4); EOSINOPHIL % 1.7 % (0.0-4.0); HEMATOCRIT 36.8 % (35.0-46.0); HEMOGLOBIN 12.6 GM/DL (11.6-15.3); LYMPH % 25.8 % (9.0-44.0); LYMPHOCYTE # 1.4 TH/MM3 (1.0-4.8); MEAN CELL VOLUME 88.2 FL (80.0-100.0); MEAN CORPUSCULAR HGB CONC 34.1 % (32.0-36.0); MEAN PLATELET VOLUME 7.5 FL (7.0-11.0); MONO % 7.2 % (0.0-8.0); MONOCYTE # 0.4 TH/MM3 (0-0.9); NEUT % 64.6 % (16.0-70.0); PLATELET COUNT 244 TH/MM3 (150-450); RED BLOOD COUNT 4.18 MIL/MM3 (4.00-5.30); RED CELL DISTRIBUTION WIDTH 12.5 % (11.6-17.2); WHITE BLOOD COUNT 5.6 TH/MM3 (4.0-11.0)
[2017-06-12 11:26] LABS: PROTHROMBIN TIME - PATIENT 9.9 SEC (9.8-11.6)
[2017-06-12 11:34] LABS: BICARBONATE 28.1 MEQ/L (21.0-32.0); CALCIUM 10.2 MG/DL (8.5-10.1); CREATININE 0.53 MG/DL (0.50-1.00)
[2017-06-12 11:39] LABS: BACTERIA, URINE RARE /hpf; BILIRUBIN, URINE NEG (NEG); BLOOD, URINE LARGE (NEG); GLUCOSE,URINE NEG (NEG); KETONE, URINE NEG (NEG); NITRITE,URINE NEG (NEG); PH, URINE 6.5 (5.0-8.5); SQUAMOUS EPITHELIAL CELL URINE 1 /hpf (0-5); URINE COLOR LIGHT-YELLOW (YELLW/STRAW); URINE LEUKOCYTE ESTERASE LARGE (NEG); WHITE BLOOD CELL CLUMPS MANY
== END ==
LOC: CPRE 10:04
PROVIDERS: ATTEND Orthopaedic Surgery
DX: Z01.812 Encounter for preprocedural laboratory examination (principal); M16.11 Unilateral primary osteoarthritis, right hip; I48.91 Unspecified atrial fibrillation; R82.90 Unspecified abnormal findings in urine
CPT/HCPCS: 36415; 80048; 81001; 85025; 85610; 87086